=== PATIENT | female | born 1965 | race African-American/Black ===

== ENCOUNTER 2018-12-15 14:52 | Inpatient (IN) | payer OTHER ==
[2018-12-15 18:35] VITALS: BMI 27.9
--- NOTE | 2018-12-15 20:22 | HP ---
"CIWA Score Nausea/Vomitin-Mild Nausea/No Vomiting Muscle Tremors: 1-None Visible, but [place] Anxiety: 4-Mod. Anxious/Guarded Agitation: 1-Slight > Activity Paroxysmal Sweats: No Perspiration Orientation: 1-Uncertain about Date Tacttile Disturbances: 2-Mild Itch/Numbness/Burn Auditory Disturbances: 0-None Visual Disturbances: 2-Mild Sensitivity Headache: 2-Mild CIWA-Ar Total Score: 14 - Admission Criteria OASAS Guidelines: Admission for Medically Managed Detox: Requires at least one of the followin. CIWA greater than 12 2. Seizures within the past 24 hours 3. Delirium tremens within the past 24 hours 4. Hallucinations within the past 24 hours 5. Acute intervention needed for co occurring medical disorder 6. Acute intervention needed for co occurring psychiatric disorder 7. Severe withdrawal that cannot be handled at a lower level of care (continued vomiting, continued diarrhea, abnormal vital signs) requiring intravenous medication and/or fluids 8. Admitting History and Physical - Past Medical History ...LMP: 08/03/07 - Smoking History Smoking history: Current every day smoker Have you smoked in the past 12 months: Yes Aproximately how many cigarettes per day: 10 - Alcohol/Substance Use Hx Alcohol Use: Yes (reports drinking since 35 yo,I pint of vodka daily) Admission [facility] Allergies/Adverse Reactions: Allergies Allergy/AdvReac Type Severity Reaction Status Date / Time fish derived Allergy Severe Swelling Verified 12/15/18 18:35 Penicillins Allergy Severe Rash Verified 12/15/18 18:35 shellfish derived Allergy Severe Swelling Verified 12/15/18 18:35 sea food Allergy Severe Swelling Uncoded 12/15/18 18:35 History of Present Illness: pt here requesting detox from etoh use , reports 1 pint /day intermittently since age 29 , increased due to depression , latest use early this morning , current symptoms as above ,reports tremors if not drinking , denies blackouts or seizures , starts drinking alcohol in the mornings. Pt is poor historian, drowsy , intoxicated . cocaine : 400-500 $ /day nicotine 1/2 ppd PMHX : bipolar d/o , chronic back and Left knee pain, 3 adult children Search Terms: arelis polo, 1965 Search Date: 12/15/2018 08:32:53 PM This report was requested by: Neha Root | Reference #: [id number] There are no results for the search terms that you entered. Exam Limitations: Clinical Condition - Ebola screening Have you traveled outside of the country in the last 21 days: No Have you had contact with anyone from an Ebola affected area: No - Review of Systems Constitutional: Loss of Appetite, Changes in sleep EENT: reports: Other (glasses) Respiratory: reports: No Symptoms reported Cardiac: reports: No Symptoms Reported GI: reports: Nausea, Poor Appetite Musculoskeletal: reports: See HPI, Back Pain, Joint Pain Neuro: reports: See HPI, Headache Endocrine: reports: No Symptoms Reported Psychiatric: reports: Anxious, Disorientated Patient History - Patient Medical History Hx Anemia: Yes (NO TREATMENT) Hx Asthma: Yes (ON ALBUTEROL) Hx Chronic Obstructive Pulmonary Disease (COPD): No Hx Cancer: No Hx Cardiac Disorders: No Hx Congestive Heart Failure: No Hx Hypertension: No Hx Hypercholesterolemia: No Hx Pacemaker: No HX Cerebrovascular Accident: No Hx Seizures: No Hx Dementia: No Hx Diabetes: No Hx Gastrointestinal Disorders: No Hx Liver Disease: No Hx Genitourinary Disorders: No Hx Sexually Transmitted Disorders: No Hx Renal Disease (ESRD): No Hx Thyroid Disease: No Hx Human Immunodeficiency Virus (HIV): No (LAST 10/15) Hx Hepatitis C: No Hx Depression: Yes Hx Suicide Attempt: Yes (CUTTER) Hx Bipolar Disorder: Yes (ONMEDS) Hx Schizophrenia: No - Patient Surgical History Past Surgical History: No Hx Neurologic Surgery: No Hx Cataract Extraction: No Hx Cardiac Surgery: No Hx Lung Surgery: No Hx Breast Surgery: Yes (R BREAST CYST/ LUMPECTOMY BENIGN CYST) Hx Breast Biopsy: No Hx Abdominal Surgery: No Hx Appendectomy: No Hx Cholecystectomy: No Hx Genitourinary Surgery: No Hx Section: No Hx Orthopedic Surgery: No Hx Hysterectomy: No Anesthesia Reaction: No - PPD History Date: 12/27/16 Results: 0 mm - Reproductive History Last Menstrual Period: 08/03/07 - Smoking Cessation Smoking history: Current every day smoker Have you smoked in the past 12 months: Yes Aproximately how many cigarettes per day: 10 Cigars Per Day: 0 Hx Chewing Tobacco Use: No Initiated information on smoking cessation: Yes 'Breaking Loose' booklet given: 12/16/18 Admission Physical Exam BHS - Vital Signs Vital Signs: Vital Signs - 24 hr 12/15/18 18:26 Temperature 99.3 F Pulse Rate 86 Respiratory 18 Rate Blood Pressure 111/72 - Physical General Appearance: Yes: Mild Distress, Thin, Anxious HEENTM: Yes: EOMI, Hearing grossly Normal, Normocephalic, Normal Voice Respiratory: Yes: Chest Non-Tender, Lungs Clear, Normal Breath Sounds, No Respiratory Distress, No Accessory Muscle Use Neck: Yes: No masses,lesions,Nodules Cardiology: Yes: Regular Rhythm, Regular Rate, S1, S2 Abdominal: Yes: Normal Bowel Sounds, Non Tender, Soft Musculoskeletal: Yes: full range of Motion, Gait Steady Extremities: Yes: Normal Capillary Refill, Normal Inspection, Normal Range of Motion Neurological: Yes: Motor Strength 5/5, Disoriented, Depressed Affect - Diagnostic (1) Alcohol dependence with uncomplicated withdrawal Current Visit: Yes Status: Acute (2) Cocaine dependence Current Visit: Yes Status: Chronic Qualifiers: Substance use status: uncomplicated Qualified Code(s): F14.20 - Cocaine dependence, uncomplicated (3) Nicotine dependence Current Visit: Yes Status: Chronic Qualifiers: Nicotine product type: cigarettes Substance use status: uncomplicated Qualified Code(s): F17.210 - Nicotine dependence, cigarettes, uncomplicated Breathalyzer - Breathalyzer Breathalyzer: 0.006 Urine Drug Screen - Test Device Lot number: [id number] Expiration date: 07/29/20 - Control Is test valid?: Yes - Results Drug screen NEGATIVE: Yes Urine drug screen results: DANIS-Cocaine Inpatient Rehab Admission - Rehab Decision to Admit Inpatient rehab admission?: No"
[2018-12-15] MEDS ORDERED: MAG HYDROX/AL HYDROX/SIMETH 30 ML UNIT-DOSE CUP PO PRN (20:29)
[2018-12-15] MEDS ORDERED: BISMUTH SUBSALICYLATE 524 MG/30 ML UD PO PRN (20:29)
[2018-12-15] MEDS ORDERED: NICOTINE POLACRILEX 2 MG GUM BUC PRN (20:29)
[2018-12-15] MEDS ORDERED: hydrOXYzine PAMOATE 25 MG CAPSULE (FP) PO PRN (20:29)
[2018-12-15] MEDS ORDERED: MAGNESIUM CITRATE 300 ML BOTTLE PO PRN (20:29)
[2018-12-15] MEDS ORDERED: ACETAMINOPHEN 325 MG TABLET (FP) PO PRN ×2 (20:29)
[2018-12-15] MEDS ORDERED: MAGNESIUM HYDROX 2400MG/30ML ORAL SUSPENSION 30 ML CUP PO PRN (20:29)
[2018-12-15] MEDS ORDERED: MENTHOL/PHENOL 1 EACH UD MM PRN (20:29)
[2018-12-15] MEDS ORDERED: IBUPROFEN 400 MG TABLET (FP) PO PRN (20:29)
[2018-12-15] MEDS ORDERED: METHOCARBAMOL 500 MG TABLET PO PRN (20:29)
[2018-12-15] MEDS ORDERED: MELATONIN 5 MG TABLETS PO PRN (20:29)
[2018-12-15] MEDS ORDERED: chlordiazePOXIDE HCL 10 MG CAPSULE PO PRN (20:31)
[2018-12-15] MEDS ORDERED: THIAMINE HCL 100 MG TABLET (FP) PO SCH (22:00)
[2018-12-15] MEDS: chlordiazePOXIDE HCL 25 MG CAPSULE PO SCH (22:02)
[2018-12-16] MEDS: chlordiazePOXIDE HCL 25 MG CAPSULE PO SCH ×2 (05:52→13:10)
[2018-12-16 09:59] LABS: HEMATOCRIT 35.3 % (32.4-45.2); HEMOGLOBIN 11.7 GM/dL (10.7-15.3); MCH 27.7 pg (25.7-33.7); MCHC 33.1 g/dl (32.0-36.0); MEAN CELL VOLUME 83.6 fl (80-96); MEAN PLT VOLUME 8.7 fl (7.5-11.1); PLATELET COUNT 295 K/MM3 (134-434); RBC 4.22 M/mm3 (3.60-5.2); RDW 14.6 % (11.6-15.6); WHITE BLOOD COUNT 7.4 K/mm3 (4.0-10.0)
[2018-12-16] MEDS ORDERED: NICOTINE 7 MG/24 HOURS TOPICAL PATCH TD SCH (10:00)
[2018-12-16] MEDS ORDERED: PRENATAL VITAMINS W/ FOLIC ACID TABLET (FP) PO SCH (10:00)
[2018-12-16 10:12] LABS: ALBUMIN 3.5 g/dl (3.4-5.0); BILIRUBIN,TOTAL 0.5 mg/dL (0.2-1); CALCIUM 9.2 mg/dL (8.5-10.1); CREATININE 1.1 mg/dL (0.55-1.3); POTASSIUM 4.1 mmol/L (3.5-5.1); TOT PROT 6.5 g/dl (6.4-8.2)
--- NOTE | 2018-12-16 15:17 | CONSULT ---
[facility] Psychiatric Consult - Data Date of interview: 12/16/18 Admission source: [facility] Identifying data: Readmission to [facility] for this 53 y/o AA female self- referred for detoxification (MAGDALENA isues : cocaine, alcohol, nicotine). Interviewed at [address] [place] [address]. Patient is single, a mother of three, homeless, unemployed and supported on SSI benefits. Substance Abuse History: Patient admits to current use of alcohol and crack/ cocaine. See [facility] report for details : Smoking history: Current every day smoker. Have you smoked in the past 12 months: Yes. Aproximately how many cigarettes per day: 10. Cigars Per Day: 0. Hx Chewing Tobacco Use: No. Initiated information on smoking cessation: Yes. 'Breaking Loose' booklet given : 12/16/18 Medical History: Medical profile is remarkable for anemia, bronchial asthma and a history of right lumpectomy (cyst in right breast). Psychiatric History: History of 2-3 psychiatric hospitalizations ([facility], [facility]). Diagnosed with Bipolar Disorder. Ms Mckeon informs that she gets outpatient services at the [facility] outpatient program where he sees a psychiatrist for medication management (depakote 250 mg po tid + seroquel 50 mg po bid and 100 mg/hs). History of non-adherence to medications. Patient reports history of one suicide attempt via self-mutilation (wrist-cutting) 25 years ago after the of her brother. Physical/Sexual Abuse/Trauma History: Patient declines to discuss this domain. Additional Comment: Urine drug screen results: DANIS-Cocaine. Noted. Mental Status Exam - Mental Status Exam Alert and Oriented to: Time, Place, Person Cognitive Function: Good Patient Appearance: Well Groomed (loud make-up and exagerated hairdo style) Mood: Anxious, Irritable Affect: Mood Congruent Patient Behavior: Cooperative Speech Pattern: Clear Voice Loudness: Normal Thought Process: Goal Oriented Thought Disorder: Not Present Hallucinations: Denies Suicidal Ideation: Denies Homicidal Ideation: Denies Insight/Judgement: Poor Sleep: Poorly, Difficulty falling asleep Appetite: Good Gait/Station: Normal Psychiatric Findings - Problem List ([place] 1, 2,3) (1) Alcohol dependence with uncomplicated withdrawal Current Visit: Yes Status: Acute (2) Cocaine dependence Current Visit: Yes Status: Chronic Qualifiers: Substance use status: uncomplicated Qualified Code(s): F14.20 - Cocaine dependence, uncomplicated (3) Nicotine dependence Current Visit: Yes Status: Chronic Qualifiers: Nicotine product type: cigarettes Substance use status: uncomplicated Qualified Code(s): F17.210 - Nicotine dependence, cigarettes, uncomplicated (4) History of bipolar disorder Current Visit: Yes Status: Chronic (5) Insomnia Current Visit: Yes Status: Chronic (6) Non-compliance Current Visit: Yes Status: Chronic Comment: As per records. - Initial Treatment Plan Initial Treatment Plan: Psychoeducation. Sleep hygiene. Detoxification. Resumed (at patient's request) : depakote 250 mg po tid + seroquel 50 mg po daily + 100 mg po hs. Side effects/benefits of both drugs are discussed with the patient. Seroquel 50 mg po ONCE is ordered. Patient agrees with this plan of care. Gave verbal consent to MD. Fenton.
[2018-12-16] MEDS ORDERED: QUEtiapine FUMARATE 50 MG TABLET PO ONE (15:27)
--- NOTE | 2018-12-16 15:35 | PN ---
S CIWA - CIWA Score Nausea/Vomitin-Mild Nausea/No Vomiting Muscle Tremors: 1-None Visible, but [place] Anxiety: 3 Agitation: 1-Slight > Activity Paroxysmal Sweats: 2 Orientation: 0-Oriented Tacttile Disturbances: 2-Mild Itch/Numbness/Burn Auditory Disturbances: 0-None Visual Disturbances: 0-None Headache: 0-None Present CIWA-Ar Total Score: 10 BHS Progress Note (SOAP) Subjective: interrupted sleep, sweats, shakes , decreased appetite knee and leg aches Objective: 12/16/18 15:34 Vital Signs Temperature 99.3 F 12/16/18 13:42 Pulse Rate 82 12/16/18 13:42 Respiratory Rate 18 12/16/18 13:42 Blood Pressure 108/74 12/16/18 13:42 O2 Sat by Pulse Oximetry (%) Laboratory Tests 12/15/18 12/16/18 12/16/18 19:06 08:15 08:15 WBC 7.4 RBC 4.22 Hgb 11.7 Hct 35.3 MCV 83.6 MCH 27.7 MCHC 33.1 RDW 14.6 Plt Count 295 MPV 8.7 D Sodium 142 Potassium 4.1 Chloride 106 Carbon Dioxide 28 Anion Gap 8 BUN 14.0 Creatinine 1.1 Est GFR (CKD-EPI)AfAm 65.92 Est GFR (CKD-EPI)NonAf 56.87 Random Glucose 55 L Calcium 9.2 Total Bilirubin 0.5 AST 12 L ALT 14 Alkaline Phosphatase 76 Total Protein 6.5 Albumin 3.5 POC Urine HCG, Qual Negative RPR Titer 12/16/18 08:15 WBC RBC Hgb Hct MCV MCH MCHC RDW Plt Count MPV Sodium Potassium Chloride Carbon Dioxide Anion Gap BUN Creatinine Est GFR (CKD-EPI)AfAm Est GFR (CKD-EPI)NonAf Random Glucose Calcium Total Bilirubin AST ALT Alkaline Phosphatase Total Protein Albumin POC Urine HCG, Qual RPR Titer Nonreactive 12/16/18 15:40 f pt aox3 in nad lying in bed Assessment: 12/16/18 15:40 withdrawal sx;s body aches 12/16/18 15:40 Plan: cont. detox increase fluids motrin prn
--- NOTE | 2018-12-16 18:01 | DS ---
[facility] Detox Discharge Summary Admission Date: 12/15/18 Discharge Date: 12/16/18 - History Present History: Alcohol Dependence, Cocaine Dependence Additional Comments: PATIENT LEFT AMA. FOLLOW UP WITH OUT PATIENT PROGRAMS, IF WORSENING SYMPTOMS SEEK MEDICAL ATTENTION. FOLLOW UP WITH OUT PATIENT REFERRALS. Pertinent Past History: ANEMIA ASTHMA OA - Physical Exam Results Vital Signs: Vital Signs Temperature 99.3 F 12/16/18 13:42 Pulse Rate 82 12/16/18 13:42 Respiratory Rate 18 12/16/18 13:42 Blood Pressure 108/74 12/16/18 13:42 O2 Sat by Pulse Oximetry (%) Pertinent Admission Physical Exam Findings: Vital Signs Temperature 99.3 F 12/16/18 13:42 Pulse Rate 82 12/16/18 13:42 Respiratory Rate 18 12/16/18 13:42 Blood Pressure 108/74 12/16/18 13:42 O2 Sat by Pulse Oximetry (%) Laboratory Last Values WBC 7.4 K/mm3 (4.0-10.0) 12/16/18 08:15 RBC 4.22 M/mm3 (3.60-5.2) 12/16/18 08:15 Hgb 11.7 GM/dL (10.7-15.3) 12/16/18 08:15 Hct 35.3 % (32.4-45.2) 12/16/18 08:15 MCV 83.6 fl (80-96) 12/16/18 08:15 MCH 27.7 pg (25.7-33.7) 12/16/18 08:15 MCHC 33.1 g/dl (32.0-36.0) 12/16/18 08:15 RDW 14.6 % (11.6-15.6) 12/16/18 08:15 Plt Count 295 K/MM3 (134-434) 12/16/18 08:15 MPV 8.7 fl (7.5-11.1) D 12/16/18 08:15 Sodium 142 mmol/L (136-145) 12/16/18 08:15 Potassium 4.1 mmol/L (3.5-5.1) 12/16/18 08:15 Chloride 106 mmol/L (98-107) 12/16/18 08:15 Carbon Dioxide 28 mmol/L (21-32) 12/16/18 08:15 Anion Gap 8 MMOL/L (8-16) 12/16/18 08:15 BUN 14.0 mg/dL (7-18) 12/16/18 08:15 Creatinine 1.1 mg/dL (0.55-1.3) 12/16/18 08:15 Est GFR (CKD-EPI)AfAm 65.92 12/16/18 08:15 Est GFR (CKD-EPI)NonAf 56.87 12/16/18 08:15 Random Glucose 55 mg/dL (74-106) L 12/16/18 08:15 Calcium 9.2 mg/dL (8.5-10.1) 12/16/18 08:15 Total Bilirubin 0.5 mg/dL (0.2-1) 12/16/18 08:15 AST 12 U/L (15-37) L 12/16/18 08:15 ALT 14 U/L (13-61) 12/16/18 08:15 Alkaline Phosphatase 76 U/L (45-117) 12/16/18 08:15 Total Protein 6.5 g/dl (6.4-8.2) 12/16/18 08:15 Albumin 3.5 g/dl (3.4-5.0) 12/16/18 08:15 POC Urine HCG, Qual Negative 12/15/18 19:06 RPR Titer Nonreactive (NONREACTIVE) 12/16/18 08:15 - Treatment Hospital Course: Discharged Condition Good Patient has Accepted a Rehab Referral to: OUTPATIENT REFERRALS - Medication Discharge Medications: Ambulatory Orders Quetiapine Fumarate [Seroquel -] 50 mg PO BID 10/11/15 Albuterol Sulfate Inhaler - [Ventolin Hfa Inhaler -] 2 inh PO QID PRN 12/04/15 Divalproex Sodium [Depakote] 250 mg PO TID 02/14/16 Ferrous Sulfate [Feosol] 325 mg PO DAILY 02/14/16 Quetiapine Fumarate [Seroquel -] 100 mg PO HS 12/25/16 Amitriptyline HCl [Elavil -] 25 mg PO HS #30 tablet 01/04/17 Divalproex [Depakote -] 250 mg PO TID #90 cap 01/04/17 Gabapentin [Neurontin -] 100 mg PO TID #90 cap 01/04/17 Quetiapine Fumarate [Seroquel -] 150 mg PO HS #90 tablet 01/04/17 Quetiapine Fumarate [Seroquel -] 50 mg PO BID@1000,1400 12/15/18 - Diagnosis (1) Alcohol dependence with uncomplicated withdrawal Current Visit: Yes Status: Acute (2) Cocaine dependence Current Visit: Yes Status: Chronic Qualifiers: Substance use status: uncomplicated Qualified Code(s): F14.20 - Cocaine dependence, uncomplicated (3) History of bipolar disorder Current Visit: Yes Status: Chronic (4) Nicotine dependence Current Visit: Yes Status: Chronic Qualifiers: Nicotine product type: cigarettes Substance use status: uncomplicated Qualified Code(s): F17.210 - Nicotine dependence, cigarettes, uncomplicated (5) Non-compliance Current Visit: Yes Status: Chronic (6) Anemia Current Visit: No Status: Chronic (7) Arthritis Current Visit: Yes Status: Chronic (8) Asthma Current Visit: Yes Status: Chronic Qualifiers: Asthma severity: moderate persistent Asthma complication type: with status asthmaticus - AMA Did Patient Leave Against Medical Advice: Yes
--- NOTE | 2018-12-16 18:02 | PN ---
S Progress Note Note: PATIENT AMA DID NOT WAIT FOR PROVIDER
[2018-12-16 18:14] VITALS: BP 102/70; PULSE 77; TEMP 98.4
[2018-12-16] MEDS ORDERED: DIVALPROEX SODIUM 250 MG TABLET E.C. PO SCH (22:00)
[2018-12-16] MEDS ORDERED: QUEtiapine FUMARATE 100 MG TABLET (FP) PO SCH (22:00)
[2018-12-17] MEDS ORDERED: chlordiazePOXIDE 5 MG CAPSULE PO SCH (05:00)
[2018-12-17] MEDS ORDERED: QUEtiapine FUMARATE 50 MG TABLET PO SCH (10:00)
[2018-12-18] MEDS ORDERED: chlordiazePOXIDE HCL 10 MG CAPSULE PO PRN
[2018-12-18] MEDS ORDERED: chlordiazePOXIDE HCL 10 MG CAPSULE PO SCH (05:00)
[2018-12-19] MEDS ORDERED: chlordiazePOXIDE HCL 10 MG CAPSULE PO ONE (05:00)
== END 2018-12-16 18:30 | disposition left against medical advice (07) | DRG 770 ==
LOC: YASAS 14:52 → Y3N 21:09
PROVIDERS: ADMIT Allergy & Immunology; ATTEND Allergy & Immunology
PROC: HZ2ZZZZ Detoxification Services for Substance Abuse Treatment (ICD-10-PCS; principal; 2018-12-15)
DX: F10.230 Alcohol dependence with withdrawal, uncomplicated (principal); F14.20 Cocaine dependence, uncomplicated; F17.210 Nicotine dependence, cigarettes, uncomplicated; F31.9 Bipolar disorder, unspecified; G47.00 Insomnia, unspecified; D64.9 Anemia, unspecified; J45.22 Mild intermittent asthma with status asthmaticus; M19.90 Unspecified osteoarthritis, unspecified site; Z91.5 Personal history of self-harm; Z88.0 Allergy status to penicillin; Z91.013 Allergy to seafood; Z91.19 Patient's noncompliance with other medical treatment and regimen
CPT/HCPCS: 36415; 80053; 81025; 85027; 86593

== ENCOUNTER 2019-01-09 09:58 | Inpatient (IN) | payer OTHER ==
[2019-01-09 10:57] VITALS: BMI 26.7
--- NOTE | 2019-01-09 11:34 | HP ---
CIWA Score Nausea/Vomitin Muscle Tremors: 4-Moderate,w/Arms Extend Anxiety: 3 Agitation: 3 Paroxysmal Sweats: 3 Orientation: 2-Disoriented Date<2 days Tacttile Disturbances: 1-Very Mild Itch/Numbness Auditory Disturbances: 0-None Visual Disturbances: 0-None Headache: 1-Very Mild CIWA-Ar Total Score: 20 - Admission Criteria OASAS Guidelines: Admission for Medically Managed Detox: Requires at least one of the followin. CIWA greater than 12 2. Seizures within the past 24 hours 3. Delirium tremens within the past 24 hours 4. Hallucinations within the past 24 hours 5. Acute intervention needed for co occurring medical disorder 6. Acute intervention needed for co occurring psychiatric disorder 7. Severe withdrawal that cannot be handled at a lower level of care (continued vomiting, continued diarrhea, abnormal vital signs) requiring intravenous medication and/or fluids 8. Admitting History and Physical - Admission Chief Complaint: " I want to clean myself out again. Last time I left, I started drinking right away." History of Present Illness: 53 year old black female with alcohol dependence with withdrawals. She was last in detox 12/15/18 but as soon as she finished detoxed, she immediately relapsed. This time she wishes to continue to rehab and then go to an outpatient treatment center. She is drinking 1-2 pints of vodka daily and last drank this morning. Her breathalyzer was positive at 0.0095. She hasn't slept well and is very tired. PMH: Anemia and Asthma Psurg: None All: Shellfish. Psych: Bipolar Disorder, Depression, Schizophrenia ( former cutter) She is homeless and in [facility]. She has poor coping skills and support systems. History Source: Patient Limitations to Obtaining History: Intoxication, Physical Impairment - Past Medical History ...LMP: 08/03/07 Heme/Onc: Yes: Anemia - Advance Directives Advance Directives: No: Living Will, Health Care Proxy, DNR - Smoking History Smoking history: Current every day smoker Have you smoked in the past 12 months: Yes Aproximately how many cigarettes per day: 10 - Alcohol/Substance Use Hx Alcohol Use: Yes (reports drinking since 35 yo,I pint of vodka daily) History of Substance Use: reports: Cocaine - Social History Usual Living Arrangement: Yes: Alone Do you think of yourself as: Straight/Heterosexual ADL: Independent Occupation: unemployed History of Recent Travel: No Admission ROS S - HPI Allergies/Adverse Reactions: Allergies Allergy/AdvReac Type Severity Reaction Status Date / Time fish derived Allergy Severe Swelling Verified 01/09/19 10:49 Penicillins Allergy Severe Rash Verified 01/09/19 10:49 shellfish derived Allergy Severe Swelling Verified 01/09/19 10:49 sea food Allergy Severe Swelling Uncoded 01/09/19 10:49 - Ebola screening Have you traveled outside of the country in the last 21 days: No ([place]) Have you had contact with anyone from an Ebola affected area: No Have you been sick,other than usual withdrawal symptoms: No Do you have a fever: No - Review of Systems Constitutional: Chills, Unintentional Wgt. Loss EENT: reports: No Symptoms Reported Respiratory: reports: No Symptoms reported Cardiac: reports: No Symptoms Reported GI: reports: Nausea, Vomiting, Abdominal cramping : reports: No Symptoms Reported Musculoskeletal: reports: No Symptoms Reported Integumentary: reports: No Symptoms Reported Neuro: reports: No Symptoms reported Endocrine: reports: No Symptoms Reported Hematology: reports: No Symptoms Reported Psychiatric: reports: Judgement Intact, Mood/Affect Appropiate, Orientated x3 Other Systems: Reviewed and Negative Patient History - Patient Medical History Hx Anemia: Yes (NO TREATMENT) Hx Asthma: Yes (ON ALBUTEROL) Hx Chronic Obstructive Pulmonary Disease (COPD): No Hx Cancer: No Hx Cardiac Disorders: No Hx Congestive Heart Failure: No Hx Hypertension: No Hx Hypercholesterolemia: No Hx Pacemaker: No HX Cerebrovascular Accident: No Hx Seizures: No Hx Dementia: No Hx Diabetes: No Hx Gastrointestinal Disorders: No Hx Liver Disease: No Hx Genitourinary Disorders: No Hx Sexually Transmitted Disorders: No Hx Renal Disease (ESRD): No Hx Thyroid Disease: No Hx Human Immunodeficiency Virus (HIV): No (LAST 10/15) Hx Hepatitis C: No Hx Depression: Yes Hx Suicide Attempt: Yes (CUTTER) Hx Bipolar Disorder: Yes (ONMEDS) Hx Schizophrenia: No - Patient Surgical History Past Surgical History: No Hx Neurologic Surgery: No Hx Cataract Extraction: No Hx Cardiac Surgery: No Hx Lung Surgery: No Hx Breast Surgery: Yes (R BREAST CYST/ LUMPECTOMY BENIGN CYST) Hx Breast Biopsy: No Hx Abdominal Surgery: No Hx Appendectomy: No Hx Cholecystectomy: No Hx Genitourinary Surgery: No Hx Section: No Hx Orthopedic Surgery: No Hx Hysterectomy: No Anesthesia Reaction: No - PPD History Previous Implant?: Yes Documented Results: Negative w/proof Implanted On Prior [facility] Admission?: Yes Date: 12/27/16 Results: 0 mm PPD to be Administered?: No - Reproductive History Patient is a Female of Child Bearing Age (11 -55 yrs old): Yes Last Menstrual Period: 08/03/07 - Smoking Cessation Smoking history: Current every day smoker Have you smoked in the past 12 months: Yes Aproximately how many cigarettes per day: 10 Cigars Per Day: 0 Hx Chewing Tobacco Use: No Initiated information on smoking cessation: Yes 'Breaking Loose' booklet given: 01/09/19 - Substances abused Alcohol Substance route: Oral Frequency: Daily Amount used: 1 pint of vodka Age of first use: 14 Date of last use: 01/09/19 Crack Substance route: Smoking Frequency: Daily Amount used: 10-20 bags Age of first use: 30 Date of last use: 01/07/19 Admission Physical Exam S - Vital Signs Vital Signs: Vital Signs - 24 hr 01/09/19 10:49 Temperature 96.4 F L Pulse Rate 87 Respiratory 18 Rate Blood Pressure 123/69 - Physical General Appearance: Yes: Disheveled, Mild Distress, Alcohol on Breath, Intoxicated HEENTM: Yes: EOMI, Hearing grossly Normal, Normal ENT Inspection, Normocephalic , Normal Voice, RENATO, Pharynx Normal, Tm's normal Respiratory: Yes: Chest Non-Tender, Lungs Clear, Normal Breath Sounds, No Respiratory Distress, No Accessory Muscle Use Neck: Yes: No masses,lesions,Nodules, Supple, Trachea in good position Breast: Yes: Breast Exam Deferred Cardiology: Yes: Regular Rhythm, Regular Rate, S1, S2 Abdominal: Yes: Non Tender, Soft, Increased Bowel Sounds Genitourinary: Yes: Within Normal Limits Back: Yes: Within Normal Limits Musculoskeletal: Yes: full range of Motion, Gait Steady Extremities: Yes: Normal Capillary Refill, Normal Inspection, Normal Range of Motion, Non-Tender Neurological: Yes: esthetician facialist II-XII NML intact, Fully Oriented, Alert, Motor Strength 5/5, Normal Mood/Affect Integumentary: Yes: Normal Color, Warm Lymphatic: Yes: Within Normal Limits - Diagnostic (1) Alcohol dependence with uncomplicated withdrawal Current Visit: Yes Status: Acute (2) Bipolar disorder (manic depression) Current Visit: Yes Status: Acute (3) Weight loss Current Visit: Yes Status: Acute (4) Alcohol dependence Current Visit: Yes Status: Chronic (5) Anemia Current Visit: Yes Status: Chronic (6) Arthritis Current Visit: Yes Status: Chronic (7) Asthma Current Visit: Yes Status: Chronic Qualifiers: Asthma severity: moderate persistent Asthma complication type: with status asthmaticus (8) Bipolar 1 disorder Current Visit: Yes Status: Chronic Comment: By history. (9) Cocaine dependence Current Visit: Yes Status: Chronic Qualifiers: Substance use status: uncomplicated Qualified Code(s): F14.20 - Cocaine dependence, uncomplicated (10) Insomnia Current Visit: Yes Status: Chronic (11) Nicotine dependence Current Visit: Yes Status: Chronic Qualifiers: Nicotine product type: cigarettes Substance use status: uncomplicated Qualified Code(s): F17.210 - Nicotine dependence, cigarettes, uncomplicated Screened but not Admitted - Documentation of Visit Screened but not Admitted: No Breathalyzer - Breathalyzer Breathalyzer: 0.006 Urine Drug Screen - Test Device Lot number: [id number] Expiration date: 07/29/20 - Control Is test valid?: Yes - Results Drug screen NEGATIVE: Yes Urine drug screen results: DANIS-Cocaine Inpatient Rehab Admission - Rehab Decision to Admit Inpatient rehab admission?: No
[2019-01-09] MEDS ORDERED: MAGNESIUM HYDROX 2400MG/30ML ORAL SUSPENSION 30 ML CUP PO PRN (11:40)
[2019-01-09] MEDS ORDERED: hydrOXYzine PAMOATE 25 MG CAPSULE (FP) PO PRN (11:40)
[2019-01-09] MEDS ORDERED: IBUPROFEN 400 MG TABLET (FP) PO PRN (11:40)
[2019-01-09] MEDS ORDERED: BISMUTH SUBSALICYLATE 262 MG/15 ML BTL PO PRN (11:40)
[2019-01-09] MEDS ORDERED: chlordiazePOXIDE HCL 25 MG CAPSULE PO PRN (11:40)
[2019-01-09] MEDS ORDERED: MAG HYDROX/AL HYDROX/SIMETH 30 ML UNIT-DOSE CUP PO PRN (11:40)
[2019-01-09] MEDS ORDERED: METHOCARBAMOL 500 MG TABLET PO PRN (11:40)
[2019-01-09] MEDS ORDERED: ACETAMINOPHEN 325 MG TABLET (FP) PO PRN ×2 (11:40)
[2019-01-09] MEDS ORDERED: MELATONIN 5 MG TABLETS PO PRN (11:40)
[2019-01-09] MEDS ORDERED: MENTHOL/PHENOL 1 EACH UD MM PRN (11:40)
[2019-01-09] MEDS ORDERED: MAGNESIUM CITRATE 300 ML BOTTLE PO PRN (11:40)
[2019-01-09] MEDS ORDERED: ALBUTEROL SO4 8 GM HFA INHALER IH PRN (11:42)
[2019-01-09 14:17] LABS: HEMATOCRIT 36.1 % (32.4-45.2); HEMOGLOBIN 11.8 GM/dL (10.7-15.3); MCH 27.6 pg (25.7-33.7); MCHC 32.6 g/dl (32.0-36.0); MEAN CELL VOLUME 84.7 fl (80-96); MEAN PLT VOLUME 8.6 fl (7.5-11.1); PLATELET COUNT 370 K/MM3 (134-434); RBC 4.26 M/mm3 (3.60-5.2); RDW 14.9 % (11.6-15.6)
[2019-01-09] MEDS: DIVALPROEX SODIUM 250 MG TABLET E.C. PO SCH ×2 (14:19→21:50)
[2019-01-09 14:38] LABS: ALBUMIN 3.6 g/dl (3.4-5.0); BILIRUBIN,TOTAL 0.2 mg/dL (0.2-1); BLOOD UREA NITROGEN 5.6 mg/dL (7-18); CALCIUM 9.2 mg/dL (8.5-10.1); CREATININE 0.9 mg/dL (0.55-1.3)
[2019-01-09] MEDS: chlordiazePOXIDE HCL 25 MG CAPSULE PO SCH ×2 (17:28→22:47)
[2019-01-09] MEDS ORDERED: QUEtiapine FUMARATE 50 MG TABLET PO ONE (20:05)
[2019-01-09] MEDS: THIAMINE HCL 100 MG TABLET (FP) PO SCH (21:51)
[2019-01-09] MEDS: guaiFENesin 200 MG/10 ML 10 ML UNIT-DOSE CUPS PO PRN (21:51)
[2019-01-10] MEDS: chlordiazePOXIDE HCL 25 MG CAPSULE PO SCH ×4 (06:24→22:41)
[2019-01-10] MEDS: DIVALPROEX SODIUM 250 MG TABLET E.C. PO SCH ×3 (06:24→22:41)
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
[2019-01-10] MEDS: PRENATAL VITAMINS W/ FOLIC ACID TABLET (FP) PO SCH (10:43)
[2019-01-10] MEDS: NICOTINE 14 MG/24 HOURS TOPICAL PATCH TD SCH (10:43)
[2019-01-10] MEDS: QUEtiapine FUMARATE 50 MG TABLET PO SCH ×2 (10:44→17:57)
[2019-01-10] MEDS: guaiFENesin 200 MG/10 ML 10 ML UNIT-DOSE CUPS PO PRN ×2 (10:47→22:42)
--- NOTE | 2019-01-10 14:34 | PN ---
[facility] CIWA - CIWA Score Nausea/Vomitin-No Nausea/No Vomiting Muscle Tremors: 3 Anxiety: 2 Agitation: 3 Paroxysmal Sweats: 3 Orientation: 0-Oriented Tacttile Disturbances: 0-None Auditory Disturbances: 0-None Visual Disturbances: 0-None Headache: 0-None Present CIWA-Ar Total Score: 11 BHS Progress Note (SOAP) Subjective: agitation sweats shakes interrupted sleep body aches Objective: 01/10/19 14:33 Vital Signs Temperature 97.8 F 01/10/19 13:21 Pulse Rate 71 01/10/19 13:21 Respiratory Rate 18 01/10/19 13:21 Blood Pressure 119/71 01/10/19 13:21 O2 Sat by Pulse Oximetry (%) Laboratory Tests 01/09/19 01/09/19 01/09/19 11:45 11:45 11:45 WBC 7.0 RBC 4.26 Hgb 11.8 Hct 36.1 MCV 84.7 MCH 27.6 MCHC 32.6 RDW 14.9 Plt Count 370 D MPV 8.6 Sodium 139 Potassium 4.0 Chloride 106 Carbon Dioxide 28 Anion Gap 6 L BUN 5.6 L Creatinine 0.9 Est GFR (CKD-EPI)AfAm 84.01 Est GFR (CKD-EPI)NonAf 72.49 Random Glucose 82 Calcium 9.2 Total Bilirubin 0.2 AST 23 ALT 18 Alkaline Phosphatase 77 Total Protein 7.0 Albumin 3.6 Valproic Acid RPR Titer Nonreactive 01/10/19 05:40 WBC RBC Hgb Hct MCV MCH MCHC RDW Plt Count MPV Sodium Potassium Chloride Carbon Dioxide Anion Gap BUN Creatinine Est GFR (CKD-EPI)AfAm Est GFR (CKD-EPI)NonAf Random Glucose Calcium Total Bilirubin AST ALT Alkaline Phosphatase Total Protein Albumin Valproic Acid 4.2 L RPR Titer labs noted aaox3 ambulating no acute distress Assessment: 01/10/19 14:34 withdrawal sx Plan: continue detox increase fluids ensure bid
[2019-01-10] MEDS: QUEtiapine FUMARATE 100 MG TABLET (FP) PO SCH (22:41)
[2019-01-10] MEDS: THIAMINE HCL 100 MG TABLET (FP) PO SCH (22:41)
[2019-01-11] MEDS: DIVALPROEX SODIUM 250 MG TABLET E.C. PO SCH ×3 (06:28→22:38)
[2019-01-11] MEDS: chlordiazePOXIDE HCL 25 MG CAPSULE PO SCH ×4 (06:28→22:38)
[2019-01-11] MEDS ORDERED: QUEtiapine FUMARATE 25 MG TABLET (FP) ONE (09:33)
[2019-01-11] MEDS: QUEtiapine FUMARATE 50 MG TABLET PO SCH ×2 (10:56→18:30)
[2019-01-11] MEDS: NICOTINE 14 MG/24 HOURS TOPICAL PATCH TD SCH (10:57)
[2019-01-11] MEDS: PRENATAL VITAMINS W/ FOLIC ACID TABLET (FP) PO SCH (10:57)
--- NOTE | 2019-01-11 12:47 | PN ---
S CIWA - CIWA Score Nausea/Vomitin-No Nausea/No Vomiting Muscle Tremors: 3 Anxiety: 2 Agitation: 2 Paroxysmal Sweats: 2 Orientation: 0-Oriented Tacttile Disturbances: 0-None Auditory Disturbances: 0-None Visual Disturbances: 0-None Headache: 0-None Present CIWA-Ar Total Score: 9 S Progress Note (SOAP) Subjective: tired sweats chills irritable Objective: 01/11/19 12:46 Vital Signs Temperature 96.4 F L 01/11/19 09:23 Pulse Rate 78 01/11/19 09:23 Respiratory Rate 18 01/11/19 09:23 Blood Pressure 150/89 01/11/19 09:23 O2 Sat by Pulse Oximetry (%) Laboratory Tests 01/09/19 01/09/19 01/09/19 11:45 11:45 11:45 WBC 7.0 RBC 4.26 Hgb 11.8 Hct 36.1 MCV 84.7 MCH 27.6 MCHC 32.6 RDW 14.9 Plt Count 370 D MPV 8.6 Sodium 139 Potassium 4.0 Chloride 106 Carbon Dioxide 28 Anion Gap 6 L BUN 5.6 L Creatinine 0.9 Est GFR (CKD-EPI)AfAm 84.01 Est GFR (CKD-EPI)NonAf 72.49 Random Glucose 82 Calcium 9.2 Total Bilirubin 0.2 AST 23 ALT 18 Alkaline Phosphatase 77 Total Protein 7.0 Albumin 3.6 Valproic Acid RPR Titer Nonreactive 01/10/19 05:40 WBC RBC Hgb Hct MCV MCH MCHC RDW Plt Count MPV Sodium Potassium Chloride Carbon Dioxide Anion Gap BUN Creatinine Est GFR (CKD-EPI)AfAm Est GFR (CKD-EPI)NonAf Random Glucose Calcium Total Bilirubin AST ALT Alkaline Phosphatase Total Protein Albumin Valproic Acid 4.2 L RPR Titer labs noted aaox3 ambulating no acute distress Assessment: 01/11/19 12:47 withdrawals Plan: continue detox increase fluids
[2019-01-11] MEDS: THIAMINE HCL 100 MG TABLET (FP) PO SCH (22:38)
[2019-01-11] MEDS: QUEtiapine FUMARATE 100 MG TABLET (FP) PO SCH (22:38)
[2019-01-12] MEDS ORDERED: chlordiazePOXIDE HCL 10 MG CAPSULE PO PRN
[2019-01-12] MEDS: DIVALPROEX SODIUM 250 MG TABLET E.C. PO SCH ×3 (05:33→23:07)
[2019-01-12] MEDS: chlordiazePOXIDE HCL 10 MG CAPSULE PO SCH ×4 (05:33→23:08)
[2019-01-12] MEDS: PRENATAL VITAMINS W/ FOLIC ACID TABLET (FP) PO SCH (10:23)
[2019-01-12] MEDS: NICOTINE 14 MG/24 HOURS TOPICAL PATCH TD SCH (10:23)
[2019-01-12] MEDS: QUEtiapine FUMARATE 50 MG TABLET PO SCH ×2 (10:24→18:16)
--- NOTE | 2019-01-12 12:32 | PN ---
S CIWA - CIWA Score Nausea/Vomitin-No Nausea/No Vomiting Muscle Tremors: 2 Anxiety: 1-Mildly Anxious Agitation: 1-Slight > Activity Paroxysmal Sweats: 1-Minimal Palms Moist Orientation: 0-Oriented Tacttile Disturbances: 0-None Auditory Disturbances: 0-None Visual Disturbances: 0-None Headache: 0-None Present CIWA-Ar Total Score: 5 BHS Progress Note (SOAP) Subjective: sleepy shakes interrupted sleep Objective: 01/12/19 12:31 Vital Signs Temperature 97.7 F 01/12/19 09:57 Pulse Rate 76 01/12/19 09:57 Respiratory Rate 01/12/19 09:57 Blood Pressure 101/56 L 01/12/19 09:57 O2 Sat by Pulse Oximetry (%) Laboratory Tests 01/09/19 01/09/19 01/09/19 11:45 11:45 11:45 WBC 7.0 RBC 4.26 Hgb 11.8 Hct 36.1 MCV 84.7 MCH 27.6 MCHC 32.6 RDW 14.9 Plt Count 370 D MPV 8.6 Sodium 139 Potassium 4.0 Chloride 106 Carbon Dioxide 28 Anion Gap 6 L BUN 5.6 L Creatinine 0.9 Est GFR (CKD-EPI)AfAm 84.01 Est GFR (CKD-EPI)NonAf 72.49 Random Glucose 82 Calcium 9.2 Total Bilirubin 0.2 AST 23 ALT 18 Alkaline Phosphatase 77 Total Protein 7.0 Albumin 3.6 Valproic Acid RPR Titer Nonreactive 01/10/19 05:40 WBC RBC Hgb Hct MCV MCH MCHC RDW Plt Count MPV Sodium Potassium Chloride Carbon Dioxide Anion Gap BUN Creatinine Est GFR (CKD-EPI)AfAm Est GFR (CKD-EPI)NonAf Random Glucose Calcium Total Bilirubin AST ALT Alkaline Phosphatase Total Protein Albumin Valproic Acid 4.2 L RPR Titer labs noted aaox3 ambulating no acute distress Assessment: 01/12/19 12:31 withdrawals Plan: continue detox increase fluids
[2019-01-12] MEDS: THIAMINE HCL 100 MG TABLET (FP) PO SCH (23:08)
[2019-01-12] MEDS: QUEtiapine FUMARATE 100 MG TABLET (FP) PO SCH (23:08)
[2019-01-13] MEDS: DIVALPROEX SODIUM 250 MG TABLET E.C. PO SCH ×3 (06:58→22:30)
[2019-01-13] MEDS: chlordiazePOXIDE HCL 10 MG CAPSULE PO SCH ×2 (06:59→17:28)
[2019-01-13] MEDS: NICOTINE 14 MG/24 HOURS TOPICAL PATCH TD SCH (10:33)
[2019-01-13] MEDS: PRENATAL VITAMINS W/ FOLIC ACID TABLET (FP) PO SCH (10:34)
[2019-01-13] MEDS: QUEtiapine FUMARATE 50 MG TABLET PO SCH ×2 (10:34→17:30)
--- NOTE | 2019-01-13 13:27 | PN ---
[facility] CIWA - CIWA Score Nausea/Vomitin-No Nausea/No Vomiting Muscle Tremors: None Anxiety: 1-Mildly Anxious Agitation: 0-Normal Activity Paroxysmal Sweats: No Perspiration Orientation: 0-Oriented Tacttile Disturbances: 0-None Auditory Disturbances: 0-None Visual Disturbances: 0-None Headache: 0-None Present CIWA-Ar Total Score: 1 BHS Progress Note (SOAP) Subjective: dry skin Objective: 01/13/19 13:26 Vital Signs Temperature 98.2 F 01/13/19 10:12 Pulse Rate 67 01/13/19 10:12 Respiratory Rate 18 01/13/19 10:12 Blood Pressure 100/64 01/13/19 10:12 O2 Sat by Pulse Oximetry (%) aaox3 ambulating no acute distress Assessment: 01/13/19 13:26 mild withdrawals Plan: continue detox lac hydrin prn d/c in am
[2019-01-13] MEDS: AMMONIUM LACTATE 12% LOTION 225 GM BOTTLE TP SCH ×2 (14:21→22:31)
[2019-01-13] MEDS: QUEtiapine FUMARATE 100 MG TABLET (FP) PO SCH (22:30)
[2019-01-13] MEDS: THIAMINE HCL 100 MG TABLET (FP) PO SCH (22:30)
[2019-01-14] MEDS ORDERED: chlordiazePOXIDE HCL 10 MG CAPSULE PO ONE (05:00)
[2019-01-14] MEDS: DIVALPROEX SODIUM 250 MG TABLET E.C. PO SCH ×2 (06:19→13:33)
[2019-01-14] MEDS: NICOTINE 14 MG/24 HOURS TOPICAL PATCH TD SCH (10:39)
[2019-01-14] MEDS: PRENATAL VITAMINS W/ FOLIC ACID TABLET (FP) PO SCH (10:39)
[2019-01-14] MEDS: AMMONIUM LACTATE 12% LOTION 225 GM BOTTLE TP SCH (10:39)
[2019-01-14] MEDS: QUEtiapine FUMARATE 50 MG TABLET PO SCH (10:46)
[2019-01-14 10:56] VITALS: BP 117/77; PULSE 84; TEMP 98.6
--- NOTE | 2019-01-14 15:08 | DS ---
[facility] Detox Discharge Summary Admission Date: 01/09/19 Discharge Date: 01/14/19 - History Present History: Alcohol Dependence, Cocaine Dependence Additional Comments: PATIENT GOING ON TO [facility] ([place], [place]) FOR AFTERCARE. PATIENT WAS DISCHARGED FROM DETOX UNIT TO BE TAKEN OVER TO REHAB UNIT IN STABLE MEDICAL CONDITION. Pertinent Past History: Anemia, Asthma, Bipolar Disorder, Depression, Schizophrenia, Weight Loss, Arthritis, Nicotine Dependence, Insomnia. - Physical Exam Results Vital Signs: Vital Signs Temperature 98.6 F 01/14/19 10:54 Pulse Rate 84 01/14/19 10:54 Respiratory Rate 18 01/14/19 10:54 Blood Pressure 117/77 01/14/19 10:54 O2 Sat by Pulse Oximetry (%) Pertinent Admission Physical Exam Findings: WITHDRAWAL SYMPTOMS. Laboratory Tests 01/09/19 01/09/19 01/09/19 11:45 11:45 11:45 WBC 7.0 RBC 4.26 Hgb 11.8 Hct 36.1 MCV 84.7 MCH 27.6 MCHC 32.6 RDW 14.9 Plt Count 370 D MPV 8.6 Sodium 139 Potassium 4.0 Chloride 106 Carbon Dioxide 28 Anion Gap 6 L BUN 5.6 L Creatinine 0.9 Est GFR (CKD-EPI)AfAm 84.01 Est GFR (CKD-EPI)NonAf 72.49 Random Glucose 82 Calcium 9.2 Total Bilirubin 0.2 AST 23 ALT 18 Alkaline Phosphatase 77 Total Protein 7.0 Albumin 3.6 Valproic Acid RPR Titer Nonreactive 01/10/19 05:40 WBC RBC Hgb Hct MCV MCH MCHC RDW Plt Count MPV Sodium Potassium Chloride Carbon Dioxide Anion Gap BUN Creatinine Est GFR (CKD-EPI)AfAm Est GFR (CKD-EPI)NonAf Random Glucose Calcium Total Bilirubin AST ALT Alkaline Phosphatase Total Protein Albumin Valproic Acid 4.2 L RPR Titer LABS NOTED. - Treatment Hospital Course: Detox Protocol Followed, Detoxed Safely, Responded well, Discharged Condition Good, Rehab Referral Accepted Patient has Accepted a Rehab Referral to: [facility] ([place], [place]). - Medication Discharge Medications: Ambulatory Orders Albuterol Sulfate Inhaler - [Ventolin Hfa Inhaler -] 2 inh PO QID PRN 12/04/15 Ferrous Sulfate [Feosol] 325 mg PO DAILY 02/14/16 Quetiapine Fumarate [Seroquel -] 100 mg PO HS 12/25/16 Amitriptyline HCl [Elavil -] 25 mg PO HS #30 tablet 01/04/17 Divalproex [Depakote -] 250 mg PO TID #90 cap 01/04/17 Quetiapine Fumarate [Seroquel -] 50 mg PO BID@1000,1400 12/15/18 - Diagnosis (1) Alcohol dependence with uncomplicated withdrawal Status: Acute (2) Bipolar disorder (manic depression) Status: Acute Qualifiers: Active/Remission status: remission status unspecified Qualified Code(s): F31.9 - Bipolar disorder, unspecified (3) Weight loss Status: Acute (4) Anemia Status: Chronic Qualifiers: Anemia type: unspecified type Qualified Code(s): D64.9 - Anemia, unspecified (5) Arthritis Status: Chronic (6) Asthma Status: Chronic Qualifiers: Asthma severity: unspecified severity Asthma persistence: unspecified Asthma complication type: uncomplicated Qualified Code(s): J45.909 - Unspecified asthma, uncomplicated (7) Cocaine dependence Status: Chronic Qualifiers: Substance use status: uncomplicated Qualified Code(s): F14.20 - Cocaine dependence, uncomplicated (8) Insomnia Status: Chronic Qualifiers: Insomnia type: unspecified Qualified Code(s): G47.00 - Insomnia, unspecified (9) Nicotine dependence Status: Chronic Qualifiers: Nicotine product type: cigarettes Substance use status: uncomplicated Qualified Code(s): F17.210 - Nicotine dependence, cigarettes, uncomplicated - AMA Did Patient Leave Against Medical Advice: No
== END 2019-01-14 14:03 | disposition other institution (70) | DRG 774 ==
LOC: YASAS 09:58 → Y6N 11:59
PROVIDERS: ADMIT Allergy & Immunology; ATTEND Allergy & Immunology
PROC: HZ2ZZZZ Detoxification Services for Substance Abuse Treatment (ICD-10-PCS; principal; 2019-01-09)
DX: F10.230 Alcohol dependence with withdrawal, uncomplicated (principal); F10.220 Alcohol dependence with intoxication, uncomplicated; F14.20 Cocaine dependence, uncomplicated; F17.210 Nicotine dependence, cigarettes, uncomplicated; F31.9 Bipolar disorder, unspecified; R63.4 Abnormal weight loss; M19.90 Unspecified osteoarthritis, unspecified site; J45.909 Unspecified asthma, uncomplicated; G47.00 Insomnia, unspecified; Z88.0 Allergy status to penicillin; Z91.013 Allergy to seafood; Z62.810 Personal history of physical and sexual abuse in childhood; Z91.5 Personal history of self-harm; Z59.0 Homelessness
CPT/HCPCS: 36415; 80053; 80164; 85027; 86593

== ENCOUNTER 2019-01-14 11:31 | Inpatient (IN) | payer OTHER ==
[2019-01-14] MEDS ORDERED: MAGNESIUM HYDROX 2400MG/30ML ORAL SUSPENSION 30 ML CUP PO PRN (15:14)
[2019-01-14] MEDS ORDERED: guaiFENesin 200 MG/10 ML 10 ML UNIT-DOSE CUPS PO PRN (15:14)
[2019-01-14] MEDS ORDERED: ACETAMINOPHEN 325 MG TABLET (FP) PO PRN (15:14)
[2019-01-14] MEDS ORDERED: IBUPROFEN 400 MG TABLET (FP) PO PRN (15:14)
[2019-01-14] MEDS ORDERED: LOPERAMIDE HCL 2 MG CAPSULE PO PRN (15:14)
[2019-01-14] MEDS ORDERED: P-EPHED 60MG/TRIPROLIDI 2.5MG TABLET PO PRN (15:14)
[2019-01-14] MEDS ORDERED: MENTHOL/PHENOL 1 EACH UD MM PRN (15:14)
[2019-01-14] MEDS ORDERED: ALBUTEROL SO4 8 GM HFA INHALER IH PRN (15:14)
[2019-01-14] MEDS ORDERED: MAGNESIUM CITRATE 300 ML BOTTLE PO PRN (15:14)
[2019-01-14] MEDS ORDERED: MAG HYDROX/AL HYDROX/SIMETH 30 ML UNIT-DOSE CUP PO PRN (15:14)
--- NOTE | 2019-01-14 15:16 | HP ---
[facility] Re[facility] Assess/Revision - Admission History Admitted to Rehab from: [facility] Date of Admission to Rehab: 01/14/2019 - Vital signs Vital Signs: NOTED; STABLE. - Findings Detox History & Physical reviewed: Yes Concur with findings: Yes Comments/Additional Findings: PATIENT'S MEDICAL / MEDICATION HISTORY REVIEWED PRIOR TO DISCHARGE FROM DETOX UNIT. PATIENT WAS DISCHARGED FROM DETOX UNIT TO BE TAKEN OVER TO REHAB UNIT IN STABLE MEDICAL CONDITION. Inpatient Rehab Admission - Rehab Decision to Admit Inpatient rehab admission?: Yes - Initial Determination Are CD services needed?: Yes Free of communicable disease: Yes Not in need of hospitalization: Yes - Rehab Admission Criteria Previous failed treatment: Yes Poor recovery environment: Yes Comorbidities: Yes Lacks judgement: No Patient is meeting Inpatient Rehab admission criteria:: Yes
[2019-01-14] MEDS ORDERED: MELATONIN 5 MG TABLETS PO PRN (22:00)
[2019-01-14] MEDS ORDERED: THIAMINE HCL 100 MG TABLET (FP) PO SCH (22:00)
[2019-01-15] MEDS ORDERED: NICOTINE 14 MG/24 HOURS TOPICAL PATCH TD SCH (10:00)
[2019-01-15] MEDS ORDERED: PRENATAL VITAMINS W/ FOLIC ACID TABLET (FP) PO SCH (10:00)
== END 2019-01-14 16:50 | disposition left against medical advice (07) | DRG 770 ==
LOC: YASAS 11:31 → Y3E 11:32
PROVIDERS: ADMIT Neuromusculoskeletal Medicine & OMM; ATTEND Neuromusculoskeletal Medicine & OMM
PROC: HZ42ZZZ Group Counseling for Substance Abuse Treatment, Cognitive-Behavioral (ICD-10-PCS; principal; 2019-01-14)
DX: F10.20 Alcohol dependence, uncomplicated (principal); F14.20 Cocaine dependence, uncomplicated; F17.210 Nicotine dependence, cigarettes, uncomplicated; F31.9 Bipolar disorder, unspecified; R63.4 Abnormal weight loss; J45.909 Unspecified asthma, uncomplicated; G47.00 Insomnia, unspecified; Z88.0 Allergy status to penicillin; Z91.013 Allergy to seafood; Z91.5 Personal history of self-harm; Z59.0 Homelessness

== ENCOUNTER 2019-12-19 11:15 | Inpatient (IN) | payer OTHER ==
--- OUTSIDE RECORDS SUMMARY | 2019-12-19 11:19 | XMS ---
:1965 Author Organization [facility] Support Name Relationship Address Phone UE Unavailable Unavailable Unavailable EDI MONZON [place], [place] [address] Edi Monzon Unavailable [address] [place] [address] Re-disclosure Warning The records that you are about to access may contain information from federally- assisted alcohol or drug abuse programs. If such information is present, then the following federally mandated warning applies: This information has been disclosed to you from records protected by federal confidentiality rules (42 CFR part 2). The federal rules prohibit you from making any further disclosure of this information unless further disclosure is expressly permitted by the written consent of the person to whom it pertains or as otherwise permitted by 42 CFR part 2. A general authorization for the release of medical or other information is NOT sufficient for this purpose. The Federal rules restrict any use of the information to criminally investigate or prosecute any alcohol or drug abuse patient.The records that you are about to access may contain highly sensitive health information, the redisclosure of which is protected by Article 27-F of the [facility] Public Health law. If you continue you may haveaccess to information: Regarding HIV / AIDS; Provided by facilities licensed or operated by the [facility] Office of Mental Health; or Provided by the [facility] Office for People With Developmental Disabilities. If such information is present, then the following [facility] mandated warning applies: This information has been disclosed to you from confidential records which are protected by state law. State law prohibits you from making any further disclosure of this information without the specific written consent of the person to whom it pertains, or as otherwise permitted by law. Any unauthorized further disclosure in violation of state law may result in a fine or senior care sentence or both. A general authorization for the release of medical or other information is NOT sufficient authorization for further disclosure. Medications Medication Brand Start Product Dose Route Administrative Pharmacy St atus Indications Reaction Description Data Name Date Form Instructions Instructions Source(s) ammonium Ammoni .0 active Ammonium e CW3 lactate 120 um 2020 {appl Lactate 12 % ([facility] MG/ML Lactat 12:00: icati [place] Topical e 12 % 00 AM on} Health Lotion EDT Care) Ammonium Lactate 12 % ammonium Ammoni .0 active Ammonium e CW3 lactate 120 um 2020 {appl Lactate 12 % ([facility] MG/ML Lactat 12:00: icati [place] Topical e 12 % 00 AM on} Health Lotion EDT Care) Ammonium Lactate 12 % Naproxen Naprox 08/02/ active Naproxen 3 75 eCW3 375 MG Oral en 375 2020 MG ([place] Tablet MG 12:00: [place] 00 AM Health EDT Care) ammonium Ammoni .0 active Ammonium e CW3 lactate 120 um 2020 {appl Lactate 12 % ([facility] MG/ML Lactat 12:00: icati [place] Topical e 12 % 00 AM on} Health Lotion EDT Care) Ammonium Lactate 12 % Naproxen Naprox 08/02/ active Naproxen 3 75 eCW3 375 MG Oral en 375 2020 MG ([place] Tablet MG 12:00: [place] 00 AM Health EDT Care) Lidocaine Lidoca 06/26/ active Lidocaine 5 eCW3 50 MG/ML ine 5 2020 % ([facility] Topical % 12:00: [place] Cream 00 AM Health Lidocaine 5 EDT Care) % Lidocaine Lidoca 06/26/ active Lidocaine 5 eCW3 50 MG/ML ine 5 2020 % ([facility] Topical % 12:00: [place] Cream 00 AM Health Lidocaine 5 EDT Care) % Lidocaine Lidoca 06/26/ active Lidocaine 5 eCW3 50 MG/ML ine 5 2020 % ([facility] Topical % 12:00: [place] Cream 00 AM Health Lidocaine 5 EDT Care) % Lidocaine Lidoca 06/26/ active Lidocaine 5 eCW3 50 MG/ML ine 5 2020 % ([facility] Topical % 12:00: [place] Cream 00 AM Health Lidocaine 5 EDT Care) % Albuterol Albute 06/14/ 3.0 active Albuterol eCW3 0.83 MG/ML rol 2020 {ml_a Sulfate (2.5 ([facility] Inhalant Sulfat 12:00: s_nee MG/3ML) Mary er Solution e (2.5 00 AM ded} 0.083% Health Albuterol MG/3ML EDT Care) Sulfate ) (2.5 0.083% MG/3ML) 0.083% Albuterol [place] 3.0 active Albuterol eCW3 0.83 MG/ML rol 2019 {ml_a Sulfate (2.5 ([facility] Inhalant Sulfat 12:00: s_nee MG/3ML) Mary er Solution e (2.5 00 AM ded} 0.083% Health Albuterol MG/3ML EDT Care) Sulfate ) (2.5 0.083% MG/3ML) 0.083% Albuterol [place] 1.0 active Albuterol eCW3 Sulfate HFA rol 2019 {puff Sulfate HFA ([facility]arcia 108 (90 Sulfat 12:00: _as_n 108 (90 Rive r Base) e HFA 00 AM eeded Base) Health MCG/ACT 108 EDT } MCG/ACT Care) (90 Base) MCG/AC T Albuterol Alb[place] 1.0 active Albuterol eCW3 Sulfate HFA rol 2019 {puff Sulfate HFA ([facility]arcia 108 (90 Sulfat 12:00: _as_n 108 (90 Rive r Base) e HFA 00 AM eeded Base) Health MCG/ACT 108 EDT } MCG/ACT Care) (90 Base) MCG/AC T Nebulizer - Nebuli 06/14/ active Nebuliz er - eCW3 zer - 2019 ([facility] 12:00: [facility] 00 AM Health EDT Care) Nebulizer - Nebuli 06/14/ active Nebuliz er - eCW3 zer - 2020 ([facility] 12:00: [place] 00 AM Health EDT Care) Albuterol [place] 3.0 active Albuterol eCW3 0.83 MG/ML rol 2020 {ml_a Sulfate (2.5 ([facility] Inhalant Sulfat 12:00: s_nee MG/3ML) Mary er Solution e (2.5 00 AM ded} 0.083% Health Albuterol MG/3ML EDT Care) Sulfate ) (2.5 0.083% MG/3ML) 0.083% Nebulizer - Nebuli 06/14/ active Nebuliz er - eCW3 zer - 2019 ([facility]arcia 12:00: [place] 00 AM Health EDT Care) Albuterol [place] 3.0 active Albuterol eCW3 0.83 MG/ML rol 2019 {ml_a Sulfate (2.5 ([facility] Inhalant Sulfat 12:00: s_nee MG/3ML) Mary er Solution e (2.5 00 AM ded} 0.083% Health Albuterol MG/3ML EDT Care) Sulfate ) (2.5 0.083% MG/3ML) 0.083% Albuterol [place] 1.0 active Albuterol eCW3 Sulfate HFA rol 2019 {puff Sulfate HFA (Garcia 108 (90 Sulfat 12:00: _as_n 108 (90 Rive r Base) e HFA 00 AM eeded Base) Health MCG/ACT 108 EDT } MCG/ACT Care) (90 Base) MCG/AC T Nebulizer - Nebuli 06/14/ active Nebuliz er - eCW3 zer - 2019 ([facility] 12:00: [place] 00 AM Health EDT Care) Albuterol [place] 1.0 active Albuterol eCW3 Sulfate HFA rol 2019 {puff Sulfate HFA (Garcia 108 (90 Sulfat 12:00: _as_n 108 (90 Rive r Base) e HFA 00 AM eeded Base) Health MCG/ACT 108 EDT } MCG/ACT Care) (90 Base) MCG/AC T Calcium Tums .0 active Tums 500 MG e CW3 Carbonate 500 MG 2020 {tabl (Garcia 500 MG 12:00: et} [place] Chewable 00 AM Health Tablet EST Care) [Tums] Tums 500 MG Calcium Tums .0 active Tums 500 MG e CW3 Carbonate 500 MG 2020 {tabl ([facility]arcia 500 MG 12:00: et} [place] Chewable 00 AM Health Tablet EST Care) [Tums] Tums 500 MG Calcium Tums .0 active Tums 500 MG e CW3 Carbonate 500 MG 2020 {tabl ([facility] 500 MG 12:00: et} [place] Chewable 00 AM Health Tablet EST Care) [Tums] Tums 500 MG Calcium Tums .0 active Tums 500 MG e CW3 Carbonate 500 MG 2019 {tabl ([facility]arcia 500 MG 12:00: et} [place] Chewable 00 AM Health Tablet EST Care) [Tums] Tums 500 MG Clotrimazol Clotri .0 active Clotrim azole eCW3 e 10 MG/ML mazole 2018 {appl 1 % ([place] Topical 1 % 12:00: icati [place] Cream 00 AM on_to Health Clotrimazol EDT _affe Care) e 1 % cted_ area} Hydrocortis Procto .0 active Proctos ol HC eCW3 one 25 asad HC 2018 {appl 2.5 % ([facility] MG/ML 2.5 % 12:00: icati [place] Topical 00 AM on_to Health Cream EDT _affe Care) [Proctosol] cted_ Proctosol area} HC 2.5 % Aluminum Antaci .0 active Antacid eC W3 Hydroxide d 2018 {ml_a Liquid ([facility] 40 MG/ML / Liquid 12:00: s_nee 200-200-2 0 [facility] Magnesium 200-20 00 AM ded} MG/5ML Healt h Hydroxide 0-20 EDT Care) 40 MG/ML / MG/5ML Simethicone 4 MG/ML Oral Suspension Antacid Liquid 200-200-20 MG/5ML Acetaminoph Acetam .0 active Acetami nophe eCW3 en 500 MG inophe 2018 {tabl n 500 MG (Hu dson Oral Tablet n 500 12:00: et_as Rive r MG 00 AM _need Health EDT ed} Care) Baclofen 10 Baclof .0 active Baclofe n 10 eCW3 MG Oral en 10 2018 {tabl MG ([facility] Tablet MG 12:00: et_wi [place] 00 AM th_fo Health EDT od_or Care) _milk } Docusate Docusa .0 active Docusate e CW3 Sodium 100 te 2018 {caps Sodium 100 (H udson MG Oral Sodium 12:00: ules_ MG [facility] Capsule 100 MG 00 AM as_ne Health EDT eded} Care) Insurance Providers Payer name Policy type Policy ID Covered Covered green party's Policy P epifanio / Coverage green party ID relationship to [place] [facility] ormation type maddox [employer] [id number] SP [id number] NON CAP [employer] [id number] SP [id number] NON CAP Medicaid [id number] S [id number] Regular Clinic Visit [facility] [id number] S [id number] MKD Dental [id number] S [id number] Dentaquest MKD Medicaid [id number] S [id number] Wrap Claims [place] [employer] [id number] S [id number] Medicaid [place] [facility] [id number] S [id number] [place] Medicaid Medicaid 4013 [id number] S [id number] Regular Clinic Visit Problems, Conditions, and Diagnoses Code Display Name Description Problem Type Effective Dates Data Source(s) J06.9 Upper respiratory Upper respiratory Problem 04/06/2019 eCW3 ([facility]gr[facility] tract infection tract infection 12:00:00 AM [facility]) M54.5 Chronic low back Chronic low back Problem 04/06/2019 eC W3 ([facility] pain pain 12:00:00 AM [facility]) R12 Heartburn Heartburn Problem 04/06/2019 eCW3 (Garcia 12:00:00 AM [facility] Care) Results ID Date Data Source [id number] 10/18/2019 12:00:00 AM EDT [facility] Name Value Range Interpretation Code Description Data Eduarda rce(s) Supporting Document(s ) 2019-nCoV [facility] RNA XXX NAVDEEP+probe- Imp This lab was ordered by [facility] and reported by [employer] ID Date Data Source [id number] 10/10/2019 03:25:00 PM EDT [facility] Name Value Range Interpretation Code Description Data Eduarda rce(s) Supporting Document(s ) SARS-COV-2 [facility] RESP Diagnostics QL NAVDEEP+PROBE This lab was ordered by [facility]+H AST TOMAS and reported by [facility]. Procedure Social History Code Duration Value Status Description Data Source(s ) Smoking 08/03/2019 Current Smoker completed Current Smoker eCW3 ( [facility] 12:00:00 AM EDT Health Ca re) Smoking 08/03/2019 Current Smoker completed Current Smoker eCW3 ( [facility] 12:00:00 AM ED Health Ca re) Smoking 08/03/2019 Current Smoker completed Current Smoker eCW3 ( [facility] 12:00:00 AM ED Health Mi re) Smoking 06/27/2019 Current Smoker completed Current Smoker eCW3 ( [facility] 12:00:00 AM EDT Health Ca re) Smoking 04/06/2019 Current Smoker completed Current Smoker eCW3 ( [facility] 12:00:00 AM [facility] Health Mi re) Patient Treatment Plan of Care Planned Activity Planned Date Details Description Data Source (s) ammonium lactate 120 MG/ML 08/03/2019 12:00:00 eCW3 ([facility] Topical Lotion [facility]) Naproxen 375 MG Oral 08/03/2019 12:00:00 eCW3 ([facility] Tablet [facility]) ammonium lactate 120 MG/ML 08/03/2019 12:00:00 eCW3 ([facility] Topical Lotion [facility]) Naproxen 375 MG Oral 08/03/2019 12:00:00 eCW3 ([facility] Tablet [facility]) ammonium lactate 120 MG/ML 08/03/2019 12:00:00 eCW3 ([facility] Topical Lotion [facility]) Lidocaine 50 MG/ML Topical 06/27/2019 12:00:00 eCW3 ([facility] Cream [facility]) Acetaminophen 500 MG Oral 10/17/2018 12:00:00 eCW3 ([facility] Tablet [facility]) Aluminum Hydroxide 40 10/17/2018 12:00:00 eCW3 ([facility] MG/ML / Magnesium [facility] Health Car e) Hydroxide 40 MG/ML / Simethicone 4 MG/ML Oral Suspension Docusate Sodium 100 MG 10/17/2018 12:00:00 eCW3 ([facility] Oral Capsule [facility]) Hydrocortisone 25 MG/ML 10/17/2018 12:00:00 eCW3 ([facility] [place] Topical Cream [Proctosol] [facility]) Baclofen 10 MG Oral Tablet 10/17/2018 12:00:00 eCW3 ([facility]) Clotrimazole 10 MG/ML 10/17/2018 12:00:00 eCW3 ([facility] Topical Cream [facility])
--- NOTE | 2019-12-19 11:56 | BHS.RME ---
2019 N Coronavirus Screen - COVID-19 Screening Questions Dx of COVID-19 or had a positive test in the last 4 weeks?: No Contact with known/suspected COVID patient in last 14 days?: No Any of these symptoms or contact with someone who has?: None Traveled domestically/internationally in the last 14 days?: No Screen score: 0 Screen result: Further Evaluation Substance Use & Tx History - Substance Use History Alcohol Substance amount: 1-2 PINTS VODKA Frequency of use: Daily Substance route: Oral Date of Last Use: 12/18/19 (STARTED AGE 15) Nicotine Substance amount: 1/2 PACK Frequency of use: Daily Substance route: Smoking Date of Last Use: 12/19/19 Physical/Psych/Mental Status - Behavior General Behavior: Decreased activity Eye Contact: Normal - Cooperativeness Cooperativeness: Cooperative - Thinking Thought Processes: Tight, Logical, Goal Directed - Physical Health Problems Is patient presently having any pain?: No Does patient presently have any injuries (include location): No Does patient currently have a fever: No Is patient : No CIWA Nausea/Vomitin-Mild Nausea/No Vomiting (NOT YET IN FULL WITHDRAWALS DUE TO USE OF ALCOHOL THIS MORNING.) Muscle Tremors: 2 Anxiety: 4-Mod. Anxious/Guarded Agitation: 2 Paroxysmal Sweats: 3 Orientation: 1-Uncertain about Date Tacttile Disturbances: 0-None Auditory Disturbances: 0-None Visual Disturbances: 0-None Headache: 0-None Present CIWA-Ar Total Score: 13
[2019-12-19 12:33] VITALS: BMI 26.1
--- NOTE | 2019-12-19 13:09 | HP ---
CIWA Score Nausea/Vomitin-Mild Nausea/No Vomiting (NOT YET IN FULL WITHDRAWALS DUE TO USE OF ALCOHOL THIS MORNING.) Muscle Tremors: 2 Anxiety: 4-Mod. Anxious/Guarded Agitation: 2 Paroxysmal Sweats: 3 Orientation: 1-Uncertain about Date Tacttile Disturbances: 0-None Auditory Disturbances: 0-None Visual Disturbances: 0-None Headache: 0-None Present CIWA-Ar Total Score: 13 - Admission Criteria OASAS Guidelines: Admission for Medically Managed Detox: Requires at least one of the followin. CIWA greater than 12 2. Seizures within the past 24 hours 3. Delirium tremens within the past 24 hours 4. Hallucinations within the past 24 hours 5. Acute intervention needed for co occurring medical disorder 6. Acute intervention needed for co occurring psychiatric disorder 7. Severe withdrawal that cannot be handled at a lower level of care (continued vomiting, continued diarrhea, abnormal vital signs) requiring intravenous medication and/or fluids 8. Patient presents the following: CIWA greater than 12 Admission Criteria Met: Admission criteria met Admitting History and Physical - Admission Chief Complaint: "needed help in dealing with drugs and getting high," " wants detox and the rehab" History of Present Illness: Pt. is a 54 y.o. F w/ PMHx. of Anemia and Eczema presenting for detox and rehab because of alcohol and crack cocaine use. Pt. states that after her sister she started to get high frequently. Pt. states that she was Sober for 8 years prior to her sister dying and starting to feel depressed. Pt. lives in [address] and would like to return after "getting clean." PMHx.: Anemia, Eczema PSHx.: None Psych: Bipolar Disorder Social: Living with grandfather [place] Legal: None - Substance Use History Alcohol Substance amount: 1-2 PINTS VODKA Frequency of use: Daily Substance route: Oral Date of Last Use: 12/18/19 (STARTED AGE 15) Nicotine Substance amount: 1/2 PACK Frequency of use: Daily Substance route: Smoking Date of Last Use: 12/19/19 Crack-Cocaine $200 Daily Last used 12/18/19 Smoke - Past Medical History ...LMP: 08/03/07 ...: No Heme/Onc: Yes: Anemia - Past Surgical History Past Surgical History: Yes: Breast Biopsy (R. breast cyst removal) - Smoking History Smoking history: Current every day smoker Have you smoked in the past 12 months: Yes Aproximately how many cigarettes per day: 10 - Alcohol/Substance Use Hx Alcohol Use: Yes (reports drinking since 35 yo,I pint of vodka daily) History of Substance Use: reports: Cocaine - Social History ADL: Independent Occupation: unemployed History of Recent Travel: No Admission [facility] Allergies/Adverse Reactions: Allergies Allergy/AdvReac Type Severity Reaction Status Date / Time fish derived Allergy Severe Swelling Verified 12/19/19 12:49 Penicillins Allergy Severe Rash Verified 12/19/19 12:49 shellfish derived Allergy Severe Swelling Verified 12/19/19 12:49 sea food Allergy Severe Swelling Uncoded 12/19/19 12:49 History of Present Illness: Smoking History Smoking history: Current every day smoker Have you smoked in the past 12 months: Yes Aproximately how many cigarettes per day: 10 - Alcohol/Substance Use Hx Alcohol Use: Yes (reports drinking since 35 yo,I pint of vodka daily) History of Substance Use: reports: Cocaine Last drink today. Has eyeopener. - Social History - Ebola screening Have you traveled outside of the country in the last 21 days: No Have you had contact with anyone from an Ebola affected area: No Have you been sick,other than usual withdrawal symptoms: No Do you have a fever: No - Review of Systems Constitutional: Unintentional Wgt. Loss (Lost 10 pounds) EENT: reports: Blurred Vision (far-sighted uses glasses.). denies: Difficulty Swallowing, Throat Pain, Throat Swelling Respiratory: reports: Cough (went to sister's wednesday). denies: Productive cough GI: denies: Diarrhea, Difficulty Swallowing, Nausea, Vomiting : denies: Dysuria Musculoskeletal: reports: Joint Pain (L. knee, chronic), Muscle Pain Integumentary: reports: Rash (Eczema on hands and feet) Neuro: denies: Numbness, Tingling, Weakness Hematology: reports: Anemia Psychiatric: reports: Anxious Patient History - Patient Medical History Hx Anemia: Yes (NO TREATMENT) Hx Asthma: Yes (pump) Hx Chronic Obstructive Pulmonary Disease (COPD): No Hx Cancer: No Hx Cardiac Disorders: No Hx Congestive Heart Failure: No Hx Hypertension: No Hx Hypercholesterolemia: No Hx Pacemaker: No HX Cerebrovascular Accident: No Hx Seizures: No Hx Dementia: No Hx Diabetes: No Hx Gastrointestinal Disorders: No Hx Liver Disease: No Hx Genitourinary Disorders: No Hx Sexually Transmitted Disorders: No Hx Renal Disease (ESRD): No Hx Thyroid Disease: No Hx Human Immunodeficiency Virus (HIV): No (LAST 10/15) Hx Hepatitis C: No Hx Depression: No Hx Suicide Attempt: Yes (cut wrist 30yrs ago) Hx Bipolar Disorder: Yes (ONMEDS) Hx Schizophrenia: Yes (bipolar) - Patient Surgical History Past Surgical History: Yes Hx Neurologic Surgery: No Hx Cataract Extraction: No Hx Cardiac Surgery: No Hx Lung Surgery: No Hx Breast Surgery: Yes (R BREAST CYST/ LUMPECTOMY BENIGN CYST) Hx Breast Biopsy: No Hx Abdominal Surgery: No Hx Appendectomy: No Hx Cholecystectomy: No Hx Genitourinary Surgery: No Hx Section: No Hx Orthopedic Surgery: No Hx Hysterectomy: No Anesthesia Reaction: No - PPD History Previous Implant?: Yes Documented Results: Negative w/proof Implanted On Prior [facility] Admission?: Yes Date: 12/27/16 Results: 0mm - Reproductive History Last Menstrual Period: 08/03/07 Patient : No - Smoking Cessation Smoking history: Current every day smoker Have you smoked in the past 12 months: Yes Aproximately how many cigarettes per day: 10 Cigars Per Day: 0 Hx Chewing Tobacco Use: No Initiated information on smoking cessation: Yes 'Breaking Loose' booklet given: 12/19/19 - Substance & Tx. History Hx Alcohol Use: Yes ( 2pints of vodka daily, last drink today, has eyeopener) Hx Substance Use: Yes Substance Use Type: Cocaine (uses crack cocaine $200/ day, last used yesterday) Hx Substance Use Treatment: Yes ([facility], December 2018) Admission Physical Exam BHS - Vital Signs Vital Signs: Vital Signs - 24 hr 12/19/19 12:32 Temperature 97.7 F Pulse Rate 78 Respiratory 16 Rate Blood Pressure 117/71 - Physical General Appearance: Yes: Within Normal Limits, No Apparent Distress HEENTM: Yes: EOMI, Hearing grossly Normal, Pharynx Normal, Lessions (sore in anterior and inferior aspect of mouth) Respiratory: Yes: Lungs Clear, Normal Breath Sounds, No Accessory Muscle Use. No: Crackles, Rales, Stridor, Wheezing Neck: Yes: Within Normal Limits Breast: Yes: Breast Exam Deferred Cardiology: Yes: Regular Rhythm, Regular Rate, S1, S2 Abdominal: Yes: Normal Bowel Sounds, Non Tender, Soft. No: Distended, Guarding Back: Yes: Within Normal Limits. No: CVA Tenderness Musculoskeletal: Yes: Within Normal Limits, full range of Motion, Gait Steady Extremities: Yes: Normal Inspection, Normal Range of Motion, Non-Tender. No: Calf Tenderness Neurological: Yes: Within Normal Limits, Fully Oriented, Motor Strength 5/5, Normal Mood/Affect, Normal Response. No: Numbness Integumentary: Yes: Normal Color, Dry, Warm - Diagnostic (1) Alcohol dependence with uncomplicated withdrawal Current Visit: No Status: Acute (2) Bipolar disorder (manic depression) Current Visit: No Status: Chronic Qualifiers: Active/Remission status: remission status unspecified Qualified Code(s): F31.9 - Bipolar disorder, unspecified (3) Weight loss Current Visit: No Status: Chronic (4) Alcohol dependence Current Visit: No Status: Chronic Qualifiers: Substance use status: unspecified alcohol-induced disorder Qualified Code(s): F10.29 - Alcohol dependence with unspecified alcohol-induced disorder (5) Anemia Current Visit: No Status: Chronic Qualifiers: Anemia type: unspecified type Qualified Code(s): D64.9 - Anemia, unspecified (6) Arthritis Current Visit: No Status: Chronic (7) Cocaine dependence, uncomplicated Current Visit: No Status: Acute (8) Nicotine dependence Current Visit: No Status: Chronic Qualifiers: Nicotine product type: cigarettes Substance use status: uncomplicated Qualified Code(s): F17.210 - Nicotine dependence, cigarettes, uncomplicated Cleared for Admission S - Detox or Rehab [facility] Level of Care: Medically Managed (Librium protocol) Detox Regimen/Protocol: Librium Breathalyzer - Breathalyzer Breathalyzer: 0 Urine Drug Screen - Test Device Lot number: [id number] Expiration date: 06/06/21 - Control Is test valid?: Yes - Results Drug screen NEGATIVE: No Urine drug screen results: DANIS-Cocaine Inpatient Rehab Admission - Rehab Decision to Admit Inpatient rehab admission?: No
[2019-12-19] MEDS ORDERED: BISMUTH SUBSALICYLATE 524 MG/30 ML UD PO PRN (13:30)
[2019-12-19] MEDS ORDERED: METHOCARBAMOL 500 MG TABLET PO PRN (13:30)
[2019-12-19] MEDS ORDERED: IBUPROFEN 400 MG TABLET (FP) PO PRN (13:30)
[2019-12-19] MEDS ORDERED: ACETAMINOPHEN 325 MG TABLET (FP) PO PRN ×2 (13:30)
[2019-12-19] MEDS ORDERED: MENTHOL/PHENOL 1 EACH UD MM PRN (13:30)
[2019-12-19] MEDS ORDERED: chlordiazePOXIDE HCL 25 MG CAPSULE PO PRN (13:30)
[2019-12-19] MEDS ORDERED: MAGNESIUM HYDROX 2400MG/30ML ORAL SUSPENSION 30 ML CUP PO PRN (13:30)
[2019-12-19] MEDS ORDERED: ONDANSETRON *ODT* 4 MG TABLET SL PRN (13:30)
[2019-12-19] MEDS ORDERED: MAG HYDROX/AL HYDROX/SIMETH 30 ML UNIT-DOSE CUP PO PRN (13:30)
[2019-12-19] MEDS ORDERED: MAGNESIUM CITRATE 300 ML BOTTLE PO PRN (13:30)
[2019-12-19] MEDS ORDERED: NICOTINE POLACRILEX 2 MG GUM BUC PRN (13:30)
--- OUTSIDE RECORDS SUMMARY | 2019-12-19 13:44 | XMS ---
:1965 Author Organization [facility] Support Name Relationship Address Phone UE Unavailable Unavailable Unavailable EDI MONZON [place], [place] X[place] Edi Monzon Unavailable [address] [place] [place] [address] Re-disclosure Warning The records that you are [...] is protected by Article 27-F of the [facility] Public Health law. If you continue you may haveaccess to information: Regarding HIV / AIDS; Provided by facilities licensed or operated by the [facility] Office of Mental Health; or Provided by the [facility] Office for People With Developmental Disabilities. If such information is present, then the following [facility] mandated warning applies: This information has been [...] law may result in a fine or half-way sentence or both. A general authorization for [...] Lidocaine 5 EDT Care) % Albuterol Albute 3.0 active Albuterol eCW3 0.83 [...] name Policy type Policy ID Covered Covered democrat's Policy P epifanio / Coverage democrat ID relationship to [place] [facility] ormation type maddox [facility] [id number] SP [id number] NON CAP [facility] [id number] SP [id number] NON CAP Medicaid [id number] S [id number] Regular Clinic Visit [facility] [id number] S [id number] MKD Dental [id number] S [id number] Dentaquest MKD Medicaid [id number] S [id number] Wrap Claims [place] F[place] [id number] S [id number] Medicaid [place] [facility] [id number] S [id number] [place] Medicaid Medicaid 4013 [id number] Regular Clinic Visit Problems, Conditions, and Diagnoses Code Display Name Description Problem Type Effective Dates Data Source(s) J06.9 Upper respiratory Upper respiratory Problem 04/06/2019 eCW3 ([place] tract infection tract infection 12:00:00 AM [facility]) M54.5 Chronic low back Chronic low back Problem 04/06/2019 eC W3 ([place] pain pain 12:00:00 AM [facility]) R12 Heartburn Heartburn Problem 04/06/2019 eCW3 ([place] 12:00:00 AM [facility]) Results ID Date Data Source [id number] 10/18/2019 12:00:00 AM EDT [facility] Name Value Range Interpretation Code Description Data Eduarda rce(s) Supporting Document(s ) 2019-nCoV [facility] RNA XXX NAVDEEP+probe- Imp [facility] and reported by [employer] ID Date Data Source [id number] 10/10/2019 03:25:00 PM EDT [facility] Name Value Range Interpretation Code Description Data Eduarda rce(s) Supporting Document(s ) SARS-COV-2 [facility] RESP Diagnostics QL NAVDEEP+PROBE This lab was ordered by [facility]/REPLACED BY [facility] and reported by [facility] [...] 12:00:00 AM EDT Health [facility] re) Smoking 06/27/2019 Current Smoker completed Current Smoker eCW3 ( [place] 12:00:00 AM EDT Health [facility] re) Smoking 04/06/2019 Current Smoker completed Current Smoker eCW3 ( [place] 12:00:00 AM [facility] Health Ca re) Patient Treatment Plan of Care Planned Activity Planned Date Details Description Data Source (s) ammonium lactate 120 MG/ML 08/03/2019 12:00:00 eCW3 ([place] Topical Lotion [facility]) Naproxen 375 MG Oral 08/03/2019 12:00:00 eCW3 ([place] Tablet [facility]) ammonium lactate 120 MG/ML 08/03/2019 12:00:00 eCW3 ([place] Topical Lotion [facility]) Naproxen 375 MG Oral 08/03/2019 12:00:00 eCW3 ([place] Tablet [facility]) ammonium lactate 120 MG/ML 08/03/2019 12:00:00 eCW3 ([place] Topical Lotion [facility]) Lidocaine 50 MG/ML Topical 06/27/2019 12:00:00 eCW3 ([place] Cream [facility]) Acetaminophen 500 MG Oral 10/17/2018 12:00:00 eCW3 ([place] Tablet [facility]) Aluminum Hydroxide 40 10/17/2018 12:00:00 eCW3 ([place] MG/ML / Magnesium [facility] Car e) Hydroxide 40 MG/ML / Simethicone 4 MG/ML Oral Suspension Docusate Sodium 100 MG 10/17/2018 12:00:00 eCW3 ([place] Oral Capsule [facility]) Hydrocortisone 25 MG/ML 10/17/2018 12:00:00 eCW3 ([place] Topical Cream [Proctosol] [facility]) Baclofen 10 MG Oral Tablet 10/17/2018 12:00:00 eCW3 ([place] [facility]) Clotrimazole 10 MG/ML 10/17/2018 12:00:00 eCW3 ([facility] Topical Cream [facility])
[2019-12-19] MEDS: chlordiazePOXIDE HCL 25 MG CAPSULE PO SCH ×3 (14:35→22:39)
[2019-12-19] MEDS: hydrOXYzine PAMOATE 25 MG CAPSULE (FP) PO SCH ×3 (14:35→22:39)
--- NOTE | 2019-12-19 15:40 | EKG ---
Test Reason : Blood Pressure : / mmHG Vent. Rate : 069 BPM Atrial Rate : 069 BPM P-R Int : 140 ms QRS Dur : 082 ms QT Int : 420 ms P-R-T Axes : 064 065 058 degrees QTc Int : 450 ms NORMAL SINUS RHYTHM MODERATE VOLTAGE CRITERIA FOR LVH, MAY BE NORMAL VARIANT ABNORMAL ECG Confirmed by MD PASQUALE, SENIA ([id number]) on 12/19/2019 3:39:59 PM Referred By: Confirmed By:SENIA GIORDANO MD
[2019-12-19 17:00] LABS: POTASSIUM 4.2 mmol/L (3.5-5.1)
[2019-12-19 17:04] LABS: CALCIUM 9.6 mg/dL (8.5-10.1)
[2019-12-19 17:05] LABS: ALBUMIN 3.6 g/dl (3.4-5.0); BLOOD UREA NITROGEN 11.9 mg/dL (7-18)
[2019-12-19 17:08] LABS: CREATININE 0.9 mg/dL (0.55-1.3)
[2019-12-19 17:09] LABS: BILIRUBIN,TOTAL 0.5 mg/dL (0.2-1)
[2019-12-19 17:12] LABS: HEMOGLOBIN 11.9 GM/dL (10.7-15.3); MCH 27.6 pg (25.7-33.7); MCHC 32.1 g/dl (32.0-36.0); MEAN CELL VOLUME 85.9 fl (80-96); MEAN PLT VOLUME 9.2 fl (7.5-11.1); PLATELET COUNT 320 K/MM3 (134-434); RBC 4.31 M/mm3 (3.60-5.2); RDW 14.6 % (11.6-15.6); WHITE BLOOD COUNT 5.1 K/mm3 (4.0-10.0)
[2019-12-19] MEDS: THIAMINE HCL 100 MG TABLET (FP) PO SCH (22:39)
[2019-12-19] MEDS: MELATONIN 5 MG TABLETS PO SCH (22:39)
[2019-12-20] MEDS: chlordiazePOXIDE HCL 25 MG CAPSULE PO SCH ×4 (06:27→22:40)
[2019-12-20] MEDS: hydrOXYzine PAMOATE 25 MG CAPSULE (FP) PO SCH ×5 (06:27→22:44)
--- NOTE | 2019-12-20 08:26 | PN ---
Teaching Attending Note Name of Resident: Silvio Palmer ATTENDING PHYSICIAN STATEMENT I saw and evaluated the patient. I reviewed the resident's note and discussed the case with the resident. I agree with the resident's findings and plan as documented. SUBJECTIVE: OBJECTIVE: ASSESSMENT AND PLAN: 1. Alcohol use disorder Plan 1. Librium detox protocol
[2019-12-20] MEDS ORDERED: NICOTINE 7 MG/24 HOURS TOPICAL PATCH TD SCH (10:00)
[2019-12-20] MEDS: PRENATAL VITAMINS W/ FOLIC ACID TABLET (FP) PO SCH (10:05)
[2019-12-20] MEDS: NICOTINE 7 MG/24 HOURS TOPICAL PATCH TD SCH (10:06)
--- NOTE | 2019-12-20 10:10 | PN ---
S CIWA - CIWA Score Nausea/Vomitin-Mild Nausea/No Vomiting Muscle Tremors: 2 Anxiety: 2 Agitation: 1-Slight > Activity Paroxysmal Sweats: 1-Minimal Palms Moist Orientation: 0-Oriented Tacttile Disturbances: 0-None Auditory Disturbances: 0-None Visual Disturbances: 2-Mild Sensitivity Headache: 2-Mild CIWA-Ar Total Score: 11 S Progress Note (SOAP) Subjective: 54 years old female was admitted on 12/19/19 for alcohol withdrawal sx management treating with librium detox regiment feels ok today ate breakfast in room resting in bed prefers to stay in bed today encourage to discuss aftercare with counselor for alcohol abuse treatment Objective: 12/20/19 10:10 Vital Signs - 24 hr 12/19/19 12/19/19 12/19/19 12:32 13:42 14:23 Temperature 97.7 F 97.3 F L Pulse Rate 78 78 Respiratory 16 18 Rate Blood Pressure 117/71 112/75 O2 Sat by Pulse 98 99 Oximetry (%) 12/19/19 12/19/19 12/20/19 16:56 20:26 06:34 Temperature 97.3 F L 97.1 F L 97.8 F Pulse Rate 83 78 70 Respiratory 18 18 20 Rate Blood Pressure 111/69 117/72 97/64 O2 Sat by Pulse 99 100 Oximetry (%) 12/20/19 09:05 Temperature 98.2 F Pulse Rate 71 Respiratory 18 Rate Blood Pressure 104/65 O2 Sat by Pulse 100 Oximetry (%) Laboratory Tests 12/19/19 12/19/19 12/19/19 12:57 12:57 12:57 WBC 5.1 RBC 4.31 Hgb 11.9 Hct 37.0 MCV 85.9 MCH 27.6 MCHC 32.1 RDW 14.6 Plt Count 320 MPV 9.2 Sodium Potassium Chloride Carbon Dioxide Anion Gap BUN Creatinine Est GFR (CKD-EPI)AfAm Est GFR (CKD-EPI)NonAf Random Glucose Calcium Total Bilirubin AST ALT Alkaline Phosphatase Total Protein Albumin Syphilis Serology Non-reactive HIV Ag/Ab Combo Qual Negative 12/19/19 12:57 WBC RBC Hgb Hct MCV MCH MCHC RDW Plt Count MPV Sodium 141 Potassium 4.2 Chloride 107 Carbon Dioxide 27 Anion Gap 6 L BUN 11.9 Creatinine 0.9 Est GFR (CKD-EPI)AfAm 83.43 Est GFR (CKD-EPI)NonAf 71.98 Random Glucose 103 Calcium 9.6 Total Bilirubin 0.5 AST 22 ALT 20 Alkaline Phosphatase 84 Total Protein 7.0 Albumin 3.6 Syphilis Serology HIV Ag/Ab Combo Qual 12/20/19 10:11 covid pending Assessment: 12/20/19 10:11 alcohol withdrawal Plan: librium regiment
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
[2019-12-20] MEDS: DIVALPROEX SODIUM 250 MG TABLET E.C. PO SCH (22:39)
[2019-12-20] MEDS: QUEtiapine FUMARATE 100 MG TABLET (FP) PO SCH (22:40)
[2019-12-20] MEDS: THIAMINE HCL 100 MG TABLET (FP) PO SCH (22:40)
[2019-12-20] MEDS: MELATONIN 5 MG TABLETS PO SCH (22:41)
[2019-12-21] MEDS: hydrOXYzine PAMOATE 25 MG CAPSULE (FP) PO SCH (05:39)
[2019-12-21] MEDS: chlordiazePOXIDE HCL 25 MG CAPSULE PO SCH ×4 (05:39→22:05)
--- NOTE | 2019-12-21 09:34 | PN ---
S CIWA - CIWA Score Nausea/Vomitin-Mild Nausea/No Vomiting Muscle Tremors: 2 Anxiety: 2 Agitation: 1-Slight > Activity Paroxysmal Sweats: No Perspiration Orientation: 0-Oriented Tacttile Disturbances: 1-Very Mild Itch/Numbness Auditory Disturbances: 0-None Visual Disturbances: 2-Mild Sensitivity Headache: 0-None Present CIWA-Ar Total Score: 9 BHS Progress Note (SOAP) Subjective: 54 years old female was admitted on 12/19/19 for alcohol withdrawal sx management treating with librium detox regiment seen by psychiatrist received depakote and seroquel "feels better" "just tired" resting in bed comfortably Objective: 12/21/19 09:33 Vital Signs - 24 hr 12/20/19 12/20/19 12/20/19 12:55 16:42 20:17 Temperature 98.2 F 97.1 F L 97.3 F L Pulse Rate 68 86 70 Respiratory 18 17 17 Rate Blood Pressure 123/71 114/77 108/70 O2 Sat by Pulse 100 99 Oximetry (%) 12/21/19 12/21/19 06:41 08:35 Temperature 97.3 F L 97.3 F L Pulse Rate 79 76 Respiratory 18 18 Rate Blood Pressure 99/60 107/74 O2 Sat by Pulse 97 97 Oximetry (%) Laboratory Tests 12/19/19 12/19/19 12/19/19 12:45 12:57 12:57 WBC RBC Hgb Hct MCV MCH MCHC RDW Plt Count MPV Sodium Potassium Chloride Carbon Dioxide Anion Gap BUN Creatinine Est GFR (CKD-EPI)AfAm Est GFR (CKD-EPI)NonAf Random Glucose Calcium Total Bilirubin AST ALT Alkaline Phosphatase Total Protein Albumin Syphilis Serology Non-reactive COVID-19 (NAVDEEP) Not detected HIV Ag/Ab Combo Qual Negative 12/19/19 12/19/19 12:57 12:57 WBC 5.1 RBC 4.31 Hgb 11.9 Hct 37.0 MCV 85.9 MCH 27.6 MCHC 32.1 RDW 14.6 Plt Count 320 MPV 9.2 Sodium 141 Potassium 4.2 Chloride 107 Carbon Dioxide 27 Anion Gap 6 L BUN 11.9 Creatinine 0.9 Est GFR (CKD-EPI)AfAm 83.43 Est GFR (CKD-EPI)NonAf 71.98 Random Glucose 103 Calcium 9.6 Total Bilirubin 0.5 AST 22 ALT 20 Alkaline Phosphatase 84 Total Protein 7.0 Albumin 3.6 Syphilis Serology COVID-19 (NAVDEEP) HIV Ag/Ab Combo Qual lab noted Assessment: 12/21/19 09:33 alcohol withdrawal 12/21/19 09:34 depakote level pending Plan: librium regiment
[2019-12-21] MEDS ORDERED: QUEtiapine FUMARATE 25 MG TABLET PO SCH (10:00)
[2019-12-21] MEDS: DIVALPROEX SODIUM 250 MG TABLET E.C. PO SCH ×2 (10:24→22:05)
[2019-12-21] MEDS: PRENATAL VITAMINS W/ FOLIC ACID TABLET (FP) PO SCH (10:24)
[2019-12-21] MEDS: hydrOXYzine PAMOATE 50 MG CAPSULE (FP) PO SCH ×4 (10:25→22:08)
[2019-12-21] MEDS: NICOTINE 7 MG/24 HOURS TOPICAL PATCH TD SCH (10:25)
--- NOTE | 2019-12-21 15:46 | PN ---
[facility] Progress Note Note: Psychiatric nurse practitioner note: Patient scheduled for discharge tomorrow and will be attending [facility] rehab. A 30 day prescription of Seroquel 25mg daily + 100mg HS + Depakote 250mg BID was electronically sent to [facility], [address] [place] [address].
[2019-12-21 17:18] VITALS: TEMP 97.1
[2019-12-21 21:43] VITALS: BP 117/74; PULSE 86
[2019-12-21] MEDS: QUEtiapine FUMARATE 100 MG TABLET (FP) PO SCH (22:05)
[2019-12-21] MEDS: THIAMINE HCL 100 MG TABLET (FP) PO SCH (22:05)
[2019-12-21] MEDS: MELATONIN 5 MG TABLETS PO SCH (22:06)
[2019-12-22] MEDS ORDERED: chlordiazePOXIDE HCL 10 MG CAPSULE PO PRN
--- NOTE | 2019-12-22 01:06 | DS ---
[facility] Detox Discharge Summary Admission Date: 12/19/19 Discharge Date: 12/22/19 - History Present History: Alcohol Dependence, Cocaine Dependence Additional Comments: CLIENT REQUESTING TO LEAVE AT THIS TIME. INFORMED CLIENT THAT IT WAS UNSAFE TO LEAVE GIVEN THE TIME, AND NO TRANSPORTATION. OFFERED CLIENT COMFORT MEDS, SNACKS. CLIENT WAS ASKED IF THERE WERE ANY NEEDS WE COULD MEET FOR HER TO WAIT TILL ABOUT 6AM FOR DC. 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 CLIENT IS A/O X3, SEEN DANCING DOWN THE HALLWAY, SHE STATES [facility] AND WILL CALL SOMEONE TO PICK HER UP. NCAT RESP- NL GAIT IS STEADY Pertinent Past History: ANEMIA NICOTINE DEPENDENCE BIPOLAR ASTHMA - Physical Exam Results Vital Signs: Vital Signs Temperature 97.1 F L 12/21/19 20:25 Pulse Rate 86 12/21/19 20:25 Respiratory Rate 17 12/21/19 20:25 Blood Pressure 117/74 12/21/19 20:25 O2 Sat by Pulse Oximetry (%) 100 12/21/19 20:25 Pertinent Admission Physical Exam Findings: withdrawal sx's Laboratory Tests 12/19/19 12/19/19 12/19/19 12:45 12:57 12:57 WBC RBC Hgb Hct MCV MCH MCHC RDW Plt Count MPV Sodium Potassium Chloride Carbon Dioxide Anion Gap BUN Creatinine Est GFR (CKD-EPI)AfAm Est GFR (CKD-EPI)NonAf Random Glucose Calcium Total Bilirubin AST ALT Alkaline Phosphatase Total Protein Albumin Syphilis Serology Non-reactive COVID-19 (NAVDEEP) Not detected HIV Ag/Ab Combo Qual Negative 12/19/19 12/19/19 12:57 12:57 WBC 5.1 RBC 4.31 Hgb 11.9 Hct 37.0 MCV 85.9 MCH 27.6 MCHC 32.1 RDW 14.6 Plt Count 320 MPV 9.2 Sodium 141 Potassium 4.2 Chloride 107 Carbon Dioxide 27 Anion Gap 6 L BUN 11.9 Creatinine 0.9 Est GFR (CKD-EPI)AfAm 83.43 Est GFR (CKD-EPI)NonAf 71.98 Random Glucose 103 Calcium 9.6 Total Bilirubin 0.5 AST 22 ALT 20 Alkaline Phosphatase 84 Total Protein 7.0 Albumin 3.6 Syphilis Serology COVID-19 (NAVDEEP) HIV Ag/Ab Combo Qual - Treatment Hospital Course: Detoxed Safely, Responded well, Discharged Condition Good Patient has Accepted a Rehab Referral to: PER COUNSELOR NOTE CLIENT WAS REFERRED TO [facility] - Medication Discharge Medications: Ambulatory Orders Quetiapine Fumarate [Seroquel -] 100 mg PO HS 12/25/16 Divalproex [Depakote -] 250 mg PO TID #90 cap 01/04/17 Quetiapine Fumarate [Seroquel -] 25 mg PO DAILY 12/15/18 Albuterol Sulfate Inhaler - [Ventolin HFA Inhaler -] 2 inh PO QID PRN #1 inhaler 12/21/19 Divalproex [Depakote -] 250 mg PO BID #60 tablet.ec 12/21/19 Ferrous Sulfate [Feosol] 325 mg PO DAILY #30 tablet 12/21/19 Quetiapine Fumarate [Seroquel -] 25 mg PO DAILY #30 tablet 12/21/19 Quetiapine Fumarate [Seroquel -] 100 mg PO HS #30 tablet 12/21/19 - Diagnosis (1) Alcohol dependence with uncomplicated withdrawal Status: Resolved (2) Nicotine dependence Status: Chronic Qualifiers: Nicotine product type: cigarettes Substance use status: uncomplicated Qualified Code(s): F17.210 - Nicotine dependence, cigarettes, uncomplicated (3) Non-compliance Status: Chronic (4) Substance induced mood disorder Status: Chronic (5) Arthritis Status: Chronic (6) Asthma Status: Chronic Qualifiers: Asthma severity: unspecified severity Asthma persistence: unspecified Asthma complication type: uncomplicated Qualified Code(s): J45.909 - Unspecified asthma, uncomplicated (7) Weight loss Status: Chronic - AMA Did Patient Leave Against Medical Advice: Yes (ELOPED OFF UNIT)
[2019-12-22] MEDS ORDERED: chlordiazePOXIDE HCL 10 MG CAPSULE PO SCH (05:00)
[2019-12-23] MEDS ORDERED: chlordiazePOXIDE HCL 10 MG CAPSULE PO SCH (05:00)
[2019-12-24] MEDS ORDERED: chlordiazePOXIDE HCL 10 MG CAPSULE PO ONE (05:00)
== END 2019-12-22 01:04 | disposition left against medical advice (07) | DRG 770 ==
LOC: YASAS 11:15 → Y3N 13:34
PROVIDERS: ADMIT Allergy & Immunology; ATTEND Allergy & Immunology
PROC: HZ2ZZZZ Detoxification Services for Substance Abuse Treatment (ICD-10-PCS; principal; 2019-12-19)
DX: F10.230 Alcohol dependence with withdrawal, uncomplicated (principal); F14.20 Cocaine dependence, uncomplicated; F17.210 Nicotine dependence, cigarettes, uncomplicated; F19.24 Other psychoactive substance dependence with psychoactive substance-induced mood disorder; F31.9 Bipolar disorder, unspecified; D64.9 Anemia, unspecified; J45.909 Unspecified asthma, uncomplicated; M12.9 Arthropathy, unspecified; G47.00 Insomnia, unspecified; L30.9 Dermatitis, unspecified; M25.562 Pain in left knee; G89.29 Other chronic pain; R63.4 Abnormal weight loss; Z68.26 Body mass index [BMI] 26.0-26.9, adult; Z91.19 Patient's noncompliance with other medical treatment and regimen; Z88.0 Allergy status to penicillin; Z91.013 Allergy to seafood
CPT/HCPCS: 36415; 80053; 85027; 86780; 87389; 93005; 93010; C9803; U0003

== ENCOUNTER 2020-04-04 11:26 | Inpatient (IN) | payer OTHER ==
[2020-04-04 12:36] VITALS: BMI 30.6
[2020-04-04] MEDS ORDERED: NICOTINE POLACRILEX 2 MG GUM BUC PRN (12:55)
[2020-04-04] MEDS ORDERED: MAG HYDROX/AL HYDROX/SIMETH 30 ML UNIT-DOSE CUP PO PRN (12:55)
[2020-04-04] MEDS ORDERED: MAGNESIUM HYDROX 2400MG/30ML ORAL SUSPENSION 30 ML CUP PO PRN (12:55)
[2020-04-04] MEDS ORDERED: ACETAMINOPHEN 325 MG TABLET (FP) PO PRN ×2 (12:55)
[2020-04-04] MEDS ORDERED: MENTHOL/PHENOL 1 EACH UD MM PRN (12:55)
[2020-04-04] MEDS ORDERED: ONDANSETRON *ODT* 4 MG TABLET SL PRN (12:55)
[2020-04-04] MEDS ORDERED: METHOCARBAMOL 500 MG TABLET PO PRN (12:55)
[2020-04-04] MEDS ORDERED: MAGNESIUM CITRATE 300 ML BOTTLE PO PRN (12:55)
[2020-04-04] MEDS ORDERED: chlordiazePOXIDE HCL 25 MG CAPSULE PO PRN (12:55)
[2020-04-04] MEDS ORDERED: IBUPROFEN 400 MG TABLET (FP) PO PRN (12:55)
[2020-04-04] MEDS ORDERED: BISMUTH SUBSALICYLATE 524 MG/30 ML UD PO PRN (12:55)
[2020-04-04] MEDS ORDERED: ALBUTEROL SO4 HFA INHALER IH PRN (13:13)
[2020-04-04] MEDS: NICOTINE 14 MG/24 HOURS TOPICAL PATCH TD SCH (13:37)
[2020-04-04] MEDS: PRENATAL VITAMINS W/ FOLIC ACID TABLET (FP) PO SCH (13:37)
[2020-04-04] MEDS: hydrOXYzine PAMOATE 25 MG CAPSULE (FP) PO SCH ×3 (13:38→22:14)
[2020-04-04 15:29] LABS: HEMATOCRIT 35.5 % (32.4-45.2); HEMOGLOBIN 11.6 GM/dL (10.7-15.3); MCHC 32.7 g/dl (32.0-36.0); MEAN CELL VOLUME 85.8 fl (80-96); MEAN PLT VOLUME 8.8 fl (7.5-11.1); PLATELET COUNT 312 K/MM3 (134-434); RBC 4.13 M/mm3 (3.60-5.2); RDW 14.4 % (11.6-15.6); WHITE BLOOD COUNT 7.4 K/mm3 (4.0-10.0)
[2020-04-04 15:43] LABS: POTASSIUM 4.1 mmol/L (3.5-5.1)
[2020-04-04 15:45] LABS: ALBUMIN 3.7 g/dl (3.4-5.0); CALCIUM 9.7 mg/dL (8.5-10.1)
[2020-04-04 15:50] LABS: BILIRUBIN,TOTAL 0.2 mg/dL (0.2-1); TOT PROT 7.4 g/dl (6.4-8.2)
[2020-04-04 16:51] LABS: HIV INTERPRETATION NEGATIVE (NEGATIVE)
[2020-04-04] MEDS: chlordiazePOXIDE HCL 25 MG CAPSULE PO SCH ×2 (18:06→22:14)
[2020-04-04] MEDS ORDERED: MASKS NR ONE (20:52)
[2020-04-04] MEDS: MELATONIN 5 MG TABLETS PO SCH (22:14)
[2020-04-04] MEDS: THIAMINE HCL 100 MG TABLET (FP) PO SCH (22:14)
[2020-04-05] MEDS: chlordiazePOXIDE HCL 25 MG CAPSULE PO SCH ×4 (06:25→23:18)
[2020-04-05] MEDS: hydrOXYzine PAMOATE 25 MG CAPSULE (FP) PO SCH ×5 (06:26→23:04)
[2020-04-05] MEDS: PRENATAL VITAMINS W/ FOLIC ACID TABLET (FP) PO SCH (10:20)
[2020-04-05] MEDS: NICOTINE 14 MG/24 HOURS TOPICAL PATCH TD SCH (10:21)
[2020-04-05] MEDS: QUEtiapine FUMARATE 50 MG TABLET PO SCH (15:10)
[2020-04-05] MEDS ORDERED: DIVALPROEX SODIUM 250 MG TABLET E.C. PO SCH (22:00)
[2020-04-05] MEDS: DIVALPROEX SODIUM 500 MG TABLET E.C. PO SCH (23:03)
[2020-04-05] MEDS: MELATONIN 5 MG TABLETS PO SCH (23:03)
[2020-04-05] MEDS: QUEtiapine FUMARATE 100 MG TABLET (FP) PO SCH (23:03)
[2020-04-05] MEDS: THIAMINE HCL 100 MG TABLET (FP) PO SCH (23:04)
[2020-04-06] MEDS: hydrOXYzine PAMOATE 25 MG CAPSULE (FP) PO SCH ×5 (05:53→22:21)
[2020-04-06] MEDS: chlordiazePOXIDE HCL 25 MG CAPSULE PO SCH ×4 (05:53→22:22)
[2020-04-06] MEDS: DIVALPROEX SODIUM 500 MG TABLET E.C. PO SCH ×2 (10:35→22:21)
[2020-04-06] MEDS: PRENATAL VITAMINS W/ FOLIC ACID TABLET (FP) PO SCH (10:35)
[2020-04-06] MEDS: QUEtiapine FUMARATE 50 MG TABLET PO SCH ×2 (10:35→17:34)
[2020-04-06] MEDS: NICOTINE 14 MG/24 HOURS TOPICAL PATCH TD SCH (10:37)
[2020-04-06] MEDS: QUEtiapine FUMARATE 100 MG TABLET (FP) PO SCH (22:21)
[2020-04-06] MEDS: THIAMINE HCL 100 MG TABLET (FP) PO SCH (22:21)
[2020-04-06] MEDS: MELATONIN 5 MG TABLETS PO SCH (22:22)
[2020-04-07] MEDS ORDERED: chlordiazePOXIDE HCL 10 MG CAPSULE PO PRN
[2020-04-07] MEDS: hydrOXYzine PAMOATE 25 MG CAPSULE (FP) PO SCH ×5 (05:44→22:25)
[2020-04-07] MEDS: chlordiazePOXIDE HCL 10 MG CAPSULE PO SCH ×4 (05:44→22:26)
[2020-04-07] MEDS: PRENATAL VITAMINS W/ FOLIC ACID TABLET (FP) PO SCH (10:20)
[2020-04-07] MEDS: QUEtiapine FUMARATE 50 MG TABLET PO SCH ×2 (10:20→17:46)
[2020-04-07] MEDS: DIVALPROEX SODIUM 500 MG TABLET E.C. PO SCH ×2 (10:20→22:24)
[2020-04-07] MEDS: NICOTINE 14 MG/24 HOURS TOPICAL PATCH TD SCH (10:21)
[2020-04-07] MEDS: QUEtiapine FUMARATE 100 MG TABLET (FP) PO SCH (22:24)
[2020-04-07] MEDS: MELATONIN 5 MG TABLETS PO SCH (22:25)
[2020-04-07] MEDS: THIAMINE HCL 100 MG TABLET (FP) PO SCH (22:25)
[2020-04-08] MEDS: hydrOXYzine PAMOATE 25 MG CAPSULE (FP) PO SCH ×5 (06:15→22:23)
[2020-04-08] MEDS: chlordiazePOXIDE HCL 10 MG CAPSULE PO SCH ×2 (06:15→17:51)
[2020-04-08] MEDS: NICOTINE 14 MG/24 HOURS TOPICAL PATCH TD SCH (09:45)
[2020-04-08] MEDS: DIVALPROEX SODIUM 500 MG TABLET E.C. PO SCH ×2 (09:46→22:22)
[2020-04-08] MEDS: QUEtiapine FUMARATE 50 MG TABLET PO SCH ×2 (09:46→15:06)
[2020-04-08] MEDS: PRENATAL VITAMINS W/ FOLIC ACID TABLET (FP) PO SCH (09:47)
[2020-04-08] MEDS: THIAMINE HCL 100 MG TABLET (FP) PO SCH (22:22)
[2020-04-08] MEDS: QUEtiapine FUMARATE 100 MG TABLET (FP) PO SCH (22:22)
[2020-04-08] MEDS: MELATONIN 5 MG TABLETS PO SCH (22:23)
[2020-04-09] MEDS ORDERED: chlordiazePOXIDE HCL 10 MG CAPSULE PO ONE (05:00)
[2020-04-09] MEDS: hydrOXYzine PAMOATE 25 MG CAPSULE (FP) PO SCH ×2 (06:24→10:05)
[2020-04-09 09:09] VITALS: BP 97/68; PULSE 80; TEMP 97.3
[2020-04-09] MEDS: DIVALPROEX SODIUM 500 MG TABLET E.C. PO SCH (10:04)
[2020-04-09] MEDS: NICOTINE 14 MG/24 HOURS TOPICAL PATCH TD SCH (10:04)
[2020-04-09] MEDS: PRENATAL VITAMINS W/ FOLIC ACID TABLET (FP) PO SCH (10:04)
[2020-04-09] MEDS: QUEtiapine FUMARATE 50 MG TABLET PO SCH (10:05)
== END 2020-04-09 12:02 | disposition other institution (70) | DRG 774 ==
LOC: YASAS 11:26 → Y3N 12:49
PROVIDERS: ADMIT Allergy & Immunology; ATTEND Allergy & Immunology
PROC: HZ2ZZZZ Detoxification Services for Substance Abuse Treatment (ICD-10-PCS; principal; 2020-04-04)
DX: F10.230 Alcohol dependence with withdrawal, uncomplicated (principal); F14.20 Cocaine dependence, uncomplicated; F17.210 Nicotine dependence, cigarettes, uncomplicated; F19.24 Other psychoactive substance dependence with psychoactive substance-induced mood disorder; F31.9 Bipolar disorder, unspecified; J45.909 Unspecified asthma, uncomplicated; G47.00 Insomnia, unspecified; M12.9 Arthropathy, unspecified; Z86.2 Personal history of diseases of the blood and blood-forming organs and certain disorders involving the immune mechanism; Z91.410 Personal history of adult physical and sexual abuse; Z91.5 Personal history of self-harm; Z88.0 Allergy status to penicillin; Z91.013 Allergy to seafood; Z56.0 Unemployment, unspecified
CPT/HCPCS: 36415; 80053; 80164; 85027; 86780; 86803; 87389; C9803; U0003

== ENCOUNTER 2020-04-09 12:08 | Inpatient (IN) | payer OTHER ==
[2020-04-09] MEDS ORDERED: guaiFENesin 200 MG/10 ML 10 ML UNIT-DOSE CUPS PO PRN (17:04)
[2020-04-09] MEDS ORDERED: MAGNESIUM HYDROX 2400MG/30ML ORAL SUSPENSION 30 ML CUP PO PRN (17:04)
[2020-04-09] MEDS ORDERED: MAGNESIUM CITRATE 300 ML BOTTLE PO PRN (17:04)
[2020-04-09] MEDS ORDERED: LOPERAMIDE HCL 2 MG CAPSULE PO PRN (17:04)
[2020-04-09] MEDS ORDERED: MENTHOL/PHENOL 1 EACH UD MM PRN (17:04)
[2020-04-09] MEDS ORDERED: NICOTINE POLACRILEX 2 MG GUM BUC PRN (17:04)
[2020-04-09] MEDS ORDERED: P-EPHED 60MG/TRIPROLIDI 2.5MG TABLET PO PRN (17:04)
[2020-04-09] MEDS ORDERED: ALBUTEROL SO4 HFA INHALER IH PRN (17:05)
[2020-04-09] MEDS: QUEtiapine FUMARATE 50 MG TABLET PO SCH (17:20)
[2020-04-09] MEDS: THIAMINE HCL 100 MG TABLET (FP) PO SCH (21:47)
[2020-04-09] MEDS: DIVALPROEX SODIUM 500 MG TABLET E.C. PO SCH (21:47)
[2020-04-09] MEDS: QUEtiapine FUMARATE 100 MG TABLET (FP) PO SCH (21:47)
[2020-04-09] MEDS: MELATONIN 5 MG TABLETS PO SCH (21:47)
[2020-04-10] MEDS: DIVALPROEX SODIUM 500 MG TABLET E.C. PO SCH ×2 (10:33→21:10)
[2020-04-10] MEDS: QUEtiapine FUMARATE 50 MG TABLET PO SCH ×2 (10:34→16:04)
[2020-04-10] MEDS: hydrOXYzine PAMOATE 25 MG CAPSULE (FP) PO PRN ×3 (10:34→21:10)
[2020-04-10] MEDS: NICOTINE 7 MG/24 HOURS TOPICAL PATCH TD SCH (10:34)
[2020-04-10] MEDS: MELATONIN 5 MG TABLETS PO SCH (21:09)
[2020-04-10] MEDS: THIAMINE HCL 100 MG TABLET (FP) PO SCH (21:09)
[2020-04-10] MEDS: QUEtiapine FUMARATE 100 MG TABLET (FP) PO SCH (21:10)
[2020-04-11] MEDS: DIVALPROEX SODIUM 500 MG TABLET E.C. PO SCH (09:47)
[2020-04-11] MEDS: QUEtiapine FUMARATE 50 MG TABLET PO SCH ×2 (09:47→17:06)
[2020-04-11] MEDS: PRENATAL VITAMINS W/ FOLIC ACID TABLET (FP) PO SCH (09:47)
[2020-04-11] MEDS: NICOTINE 7 MG/24 HOURS TOPICAL PATCH TD SCH (09:47)
[2020-04-11] MEDS: hydrOXYzine PAMOATE 25 MG CAPSULE (FP) PO PRN (09:47)
[2020-04-11] MEDS: ACETAMINOPHEN 325 MG TABLET (FP) PO PRN ×2 (11:50→23:10)
[2020-04-11] MEDS ORDERED: PT OWN MED DRAWER 7, Y5N ONE (19:34)
[2020-04-11] MEDS: THIAMINE HCL 100 MG TABLET (FP) PO SCH (23:12)
[2020-04-11] MEDS: MELATONIN 5 MG TABLETS PO SCH (23:12)
[2020-04-11] MEDS: QUEtiapine FUMARATE 200 MG TABLET PO SCH (23:13)
[2020-04-11] MEDS: DIVALPROEX SODIUM 250 MG TABLET E.C. PO SCH (23:13)
[2020-04-12] MEDS: PRENATAL VITAMINS W/ FOLIC ACID TABLET (FP) PO SCH (11:13)
[2020-04-12] MEDS: QUEtiapine FUMARATE 50 MG TABLET PO SCH ×2 (11:13→17:24)
[2020-04-12] MEDS: hydrOXYzine PAMOATE 25 MG CAPSULE (FP) PO PRN (11:13)
[2020-04-12] MEDS: NICOTINE 7 MG/24 HOURS TOPICAL PATCH TD SCH (11:16)
[2020-04-12] MEDS: ACETAMINOPHEN 325 MG TABLET (FP) PO PRN (11:16)
[2020-04-12] MEDS: DIVALPROEX SODIUM 250 MG TABLET E.C. PO SCH ×2 (14:34→21:18)
[2020-04-12] MEDS: QUEtiapine FUMARATE 200 MG TABLET PO SCH (21:18)
[2020-04-12] MEDS: MELATONIN 5 MG TABLETS PO SCH (21:19)
[2020-04-12] MEDS: THIAMINE HCL 100 MG TABLET (FP) PO SCH (21:19)
[2020-04-12] MEDS ORDERED: DIVALPROEX SODIUM 500 MG TABLET E.C. PO SCH (22:00)
[2020-04-13] MEDS: DIVALPROEX SODIUM 250 MG TABLET E.C. PO SCH ×3 (06:30→21:49)
[2020-04-13] MEDS: IBUPROFEN 400 MG TABLET (FP) PO PRN ×2 (07:46→18:17)
[2020-04-13] MEDS ORDERED: DIVALPROEX SODIUM 250 MG TABLET E.C. PO SCH (10:00)
[2020-04-13] MEDS: PRENATAL VITAMINS W/ FOLIC ACID TABLET (FP) PO SCH (11:02)
[2020-04-13] MEDS: NICOTINE 7 MG/24 HOURS TOPICAL PATCH TD SCH (11:03)
[2020-04-13] MEDS: QUEtiapine FUMARATE 50 MG TABLET PO SCH ×2 (11:03→18:15)
[2020-04-13] MEDS: hydrOXYzine PAMOATE 25 MG CAPSULE (FP) PO PRN (18:18)
[2020-04-13] MEDS: THIAMINE HCL 100 MG TABLET (FP) PO SCH (21:49)
[2020-04-13] MEDS: MELATONIN 5 MG TABLETS PO SCH (21:49)
[2020-04-13] MEDS: QUEtiapine FUMARATE 200 MG TABLET PO SCH (21:49)
[2020-04-14] MEDS: DIVALPROEX SODIUM 250 MG TABLET E.C. PO SCH ×3 (06:47→21:17)
[2020-04-14] MEDS: ACETAMINOPHEN 325 MG TABLET (FP) PO PRN ×2 (06:48→11:53)
[2020-04-14] MEDS: NICOTINE 7 MG/24 HOURS TOPICAL PATCH TD SCH (10:23)
[2020-04-14] MEDS: hydrOXYzine PAMOATE 25 MG CAPSULE (FP) PO PRN ×2 (10:23→13:17)
[2020-04-14] MEDS: QUEtiapine FUMARATE 50 MG TABLET PO SCH ×2 (10:23→17:28)
[2020-04-14] MEDS: PRENATAL VITAMINS W/ FOLIC ACID TABLET (FP) PO SCH (10:23)
[2020-04-14] MEDS: THIAMINE HCL 100 MG TABLET (FP) PO SCH (21:17)
[2020-04-14] MEDS: QUEtiapine FUMARATE 200 MG TABLET PO SCH (21:17)
[2020-04-14] MEDS: MELATONIN 5 MG TABLETS PO SCH (21:17)
[2020-04-15] MEDS: DIVALPROEX SODIUM 250 MG TABLET E.C. PO SCH ×3 (06:53→22:14)
[2020-04-15] MEDS: hydrOXYzine PAMOATE 25 MG CAPSULE (FP) PO PRN ×3 (09:25→22:15)
[2020-04-15] MEDS: NICOTINE 7 MG/24 HOURS TOPICAL PATCH TD SCH (09:25)
[2020-04-15] MEDS: ACETAMINOPHEN 325 MG TABLET (FP) PO PRN (09:25)
[2020-04-15] MEDS: QUEtiapine FUMARATE 50 MG TABLET PO SCH ×2 (09:25→17:09)
[2020-04-15] MEDS: PRENATAL VITAMINS W/ FOLIC ACID TABLET (FP) PO SCH (09:25)
[2020-04-15] MEDS: METHYL SALICYLATE/MENTHOL OINT 30 GM TUBE TP SCH ×2 (12:36→22:16)
[2020-04-15] MEDS: NAPROXEN 250 MG TABLET PO SCH ×2 (12:38→22:15)
[2020-04-15] MEDS: QUEtiapine FUMARATE 200 MG TABLET PO SCH (22:15)
[2020-04-15] MEDS: MELATONIN 5 MG TABLETS PO SCH (22:15)
[2020-04-15] MEDS: THIAMINE HCL 100 MG TABLET (FP) PO SCH (22:15)
[2020-04-16] MEDS: DIVALPROEX SODIUM 250 MG TABLET E.C. PO SCH ×3 (06:48→21:13)
[2020-04-16] MEDS: PRENATAL VITAMINS W/ FOLIC ACID TABLET (FP) PO SCH (10:54)
[2020-04-16] MEDS: QUEtiapine FUMARATE 50 MG TABLET PO SCH ×2 (10:54→17:23)
[2020-04-16] MEDS: hydrOXYzine PAMOATE 25 MG CAPSULE (FP) PO PRN ×2 (10:54→21:13)
[2020-04-16] MEDS: NAPROXEN 250 MG TABLET PO SCH ×2 (10:54→21:15)
[2020-04-16] MEDS: METHYL SALICYLATE/MENTHOL OINT 30 GM TUBE TP SCH ×2 (10:55→21:15)
[2020-04-16] MEDS: NICOTINE 7 MG/24 HOURS TOPICAL PATCH TD SCH (10:56)
[2020-04-16] MEDS: MAG HYDROX/AL HYDROX/SIMETH 30 ML UNIT-DOSE CUP PO PRN ×2 (14:02→21:13)
[2020-04-16] MEDS: MELATONIN 5 MG TABLETS PO SCH (21:12)
[2020-04-16] MEDS: THIAMINE HCL 100 MG TABLET (FP) PO SCH (21:12)
[2020-04-16] MEDS: QUEtiapine FUMARATE 200 MG TABLET PO SCH (21:13)
[2020-04-17] MEDS: DIVALPROEX SODIUM 250 MG TABLET E.C. PO SCH ×3 (07:17→21:34)
[2020-04-17] MEDS ORDERED: PT OWN MED DRAWER 7, Y5N ONE ×3 (08:56→22:50)
[2020-04-17] MEDS: QUEtiapine FUMARATE 50 MG TABLET PO SCH ×2 (11:05→16:24)
[2020-04-17] MEDS: PRENATAL VITAMINS W/ FOLIC ACID TABLET (FP) PO SCH (11:05)
[2020-04-17] MEDS: NICOTINE 7 MG/24 HOURS TOPICAL PATCH TD SCH (11:05)
[2020-04-17] MEDS: METHYL SALICYLATE/MENTHOL OINT 30 GM TUBE TP SCH ×2 (11:05→21:34)
[2020-04-17] MEDS: NAPROXEN 250 MG TABLET PO SCH ×2 (11:06→21:35)
[2020-04-17] MEDS: ACETAMINOPHEN 325 MG TABLET (FP) PO PRN (19:30)
[2020-04-17] MEDS: MAG HYDROX/AL HYDROX/SIMETH 30 ML UNIT-DOSE CUP PO PRN (20:57)
[2020-04-17] MEDS: QUEtiapine FUMARATE 200 MG TABLET PO SCH (21:34)
[2020-04-17] MEDS: THIAMINE HCL 100 MG TABLET (FP) PO SCH (21:34)
[2020-04-17] MEDS: MELATONIN 5 MG TABLETS PO SCH (21:35)
[2020-04-17] MEDS: hydrOXYzine PAMOATE 25 MG CAPSULE (FP) PO PRN (21:35)
[2020-04-18] MEDS: DIVALPROEX SODIUM 250 MG TABLET E.C. PO SCH ×3 (06:38→21:25)
[2020-04-18] MEDS ORDERED: PT OWN MED DRAWER 7, Y5N ONE ×2 (08:52→21:26)
[2020-04-18] MEDS: METHYL SALICYLATE/MENTHOL OINT 30 GM TUBE TP SCH ×2 (09:47→21:25)
[2020-04-18] MEDS: NAPROXEN 250 MG TABLET PO SCH ×2 (09:47→21:27)
[2020-04-18] MEDS: NICOTINE 7 MG/24 HOURS TOPICAL PATCH TD SCH (09:48)
[2020-04-18] MEDS: PRENATAL VITAMINS W/ FOLIC ACID TABLET (FP) PO SCH (09:49)
[2020-04-18] MEDS: QUEtiapine FUMARATE 50 MG TABLET PO SCH ×2 (09:49→18:51)
[2020-04-18] MEDS: hydrOXYzine PAMOATE 25 MG CAPSULE (FP) PO PRN ×2 (09:49→21:24)
[2020-04-18] MEDS: MELATONIN 5 MG TABLETS PO SCH (21:24)
[2020-04-18] MEDS: THIAMINE HCL 100 MG TABLET (FP) PO SCH (21:24)
[2020-04-18] MEDS: QUEtiapine FUMARATE 200 MG TABLET PO SCH (21:24)
[2020-04-18] MEDS: FAMOTIDINE 20 MG TABLET PO SCH (21:27)
[2020-04-19] MEDS: DIVALPROEX SODIUM 250 MG TABLET E.C. PO SCH ×3 (06:27→21:15)
[2020-04-19] MEDS: FAMOTIDINE 20 MG TABLET PO SCH ×2 (06:27→21:16)
[2020-04-19] MEDS: QUEtiapine FUMARATE 50 MG TABLET PO SCH ×2 (09:58→16:55)
[2020-04-19] MEDS: NAPROXEN 250 MG TABLET PO SCH ×2 (09:58→21:15)
[2020-04-19] MEDS: METHYL SALICYLATE/MENTHOL OINT 30 GM TUBE TP SCH ×2 (09:58→21:15)
[2020-04-19] MEDS: NICOTINE 7 MG/24 HOURS TOPICAL PATCH TD SCH (09:58)
[2020-04-19] MEDS: PRENATAL VITAMINS W/ FOLIC ACID TABLET (FP) PO SCH (09:58)
[2020-04-19] MEDS: QUEtiapine FUMARATE 200 MG TABLET PO SCH (21:14)
[2020-04-19] MEDS: THIAMINE HCL 100 MG TABLET (FP) PO SCH (21:14)
[2020-04-19] MEDS: MELATONIN 5 MG TABLETS PO SCH (21:15)
[2020-04-19] MEDS: hydrOXYzine PAMOATE 25 MG CAPSULE (FP) PO PRN (21:16)
[2020-04-20] MEDS: DIVALPROEX SODIUM 250 MG TABLET E.C. PO SCH ×3 (07:17→21:37)
[2020-04-20] MEDS: FAMOTIDINE 20 MG TABLET PO SCH ×2 (07:17→21:37)
[2020-04-20] MEDS ORDERED: PT OWN MED DRAWER 7, Y5N ONE ×4 (08:31→21:40)
[2020-04-20] MEDS: PRENATAL VITAMINS W/ FOLIC ACID TABLET (FP) PO SCH (09:40)
[2020-04-20] MEDS: METHYL SALICYLATE/MENTHOL OINT 30 GM TUBE TP SCH ×2 (09:40→21:36)
[2020-04-20] MEDS: QUEtiapine FUMARATE 50 MG TABLET PO SCH ×2 (09:40→17:07)
[2020-04-20] MEDS: NICOTINE 7 MG/24 HOURS TOPICAL PATCH TD SCH (09:41)
[2020-04-20] MEDS: NAPROXEN 250 MG TABLET PO SCH ×2 (13:28→21:45)
[2020-04-20] MEDS: MELATONIN 5 MG TABLETS PO SCH (21:36)
[2020-04-20] MEDS: THIAMINE HCL 100 MG TABLET (FP) PO SCH (21:37)
[2020-04-20] MEDS: hydrOXYzine PAMOATE 25 MG CAPSULE (FP) PO PRN (21:37)
[2020-04-20] MEDS: QUEtiapine FUMARATE 200 MG TABLET PO SCH (21:37)
[2020-04-21] MEDS: DIVALPROEX SODIUM 250 MG TABLET E.C. PO SCH ×3 (06:13→21:36)
[2020-04-21] MEDS ORDERED: PT OWN MED DRAWER 7, Y5N ONE ×3 (06:13→22:46)
[2020-04-21] MEDS: FAMOTIDINE 20 MG TABLET PO SCH ×2 (06:14→21:37)
[2020-04-21] MEDS: NAPROXEN 250 MG TABLET PO SCH ×2 (09:54→21:56)
[2020-04-21] MEDS: QUEtiapine FUMARATE 50 MG TABLET PO SCH ×2 (09:54→16:20)
[2020-04-21] MEDS: NICOTINE 7 MG/24 HOURS TOPICAL PATCH TD SCH (09:55)
[2020-04-21] MEDS: METHYL SALICYLATE/MENTHOL OINT 30 GM TUBE TP SCH ×2 (09:55→21:37)
[2020-04-21] MEDS: PRENATAL VITAMINS W/ FOLIC ACID TABLET (FP) PO SCH (09:56)
[2020-04-21] MEDS: hydrOXYzine PAMOATE 25 MG CAPSULE (FP) PO PRN ×2 (15:07→21:37)
[2020-04-21] MEDS: MELATONIN 5 MG TABLETS PO SCH (21:36)
[2020-04-21] MEDS: THIAMINE HCL 100 MG TABLET (FP) PO SCH (21:36)
[2020-04-21] MEDS: QUEtiapine FUMARATE 200 MG TABLET PO SCH (21:36)
[2020-04-22 06:38] VITALS: TEMP 97.3
[2020-04-22] MEDS: DIVALPROEX SODIUM 250 MG TABLET E.C. PO SCH ×3 (07:33→21:01)
[2020-04-22] MEDS: FAMOTIDINE 20 MG TABLET PO SCH ×2 (07:34→21:01)
[2020-04-22] MEDS ORDERED: PT OWN MED DRAWER 7, Y5N ONE ×2 (08:44→14:12)
[2020-04-22] MEDS: NAPROXEN 250 MG TABLET PO SCH ×2 (10:50→21:01)
[2020-04-22] MEDS: QUEtiapine FUMARATE 50 MG TABLET PO SCH ×2 (10:50→16:48)
[2020-04-22] MEDS: PRENATAL VITAMINS W/ FOLIC ACID TABLET (FP) PO SCH (10:50)
[2020-04-22] MEDS: NICOTINE 7 MG/24 HOURS TOPICAL PATCH TD SCH (10:51)
[2020-04-22] MEDS: METHYL SALICYLATE/MENTHOL OINT 30 GM TUBE TP SCH ×2 (10:51→21:00)
[2020-04-22] MEDS: MELATONIN 5 MG TABLETS PO SCH (21:00)
[2020-04-22] MEDS: THIAMINE HCL 100 MG TABLET (FP) PO SCH (21:00)
[2020-04-22] MEDS: QUEtiapine FUMARATE 200 MG TABLET PO SCH (21:01)
[2020-04-23] MEDS: DIVALPROEX SODIUM 250 MG TABLET E.C. PO SCH ×3 (07:26→21:33)
[2020-04-23] MEDS: FAMOTIDINE 20 MG TABLET PO SCH ×2 (07:26→21:33)
[2020-04-23] MEDS ORDERED: PT OWN MED DRAWER 7, Y5N ONE (08:35)
[2020-04-23] MEDS: QUEtiapine FUMARATE 50 MG TABLET PO SCH ×2 (09:58→18:26)
[2020-04-23] MEDS: PRENATAL VITAMINS W/ FOLIC ACID TABLET (FP) PO SCH (09:58)
[2020-04-23] MEDS: NAPROXEN 250 MG TABLET PO SCH ×2 (09:58→21:33)
[2020-04-23] MEDS: NICOTINE 7 MG/24 HOURS TOPICAL PATCH TD SCH (09:59)
[2020-04-23] MEDS: METHYL SALICYLATE/MENTHOL OINT 30 GM TUBE TP SCH ×2 (09:59→21:34)
[2020-04-23] MEDS: ACETAMINOPHEN 325 MG TABLET (FP) PO PRN (10:30)
[2020-04-23] MEDS: QUEtiapine FUMARATE 200 MG TABLET PO SCH (21:33)
[2020-04-23] MEDS: THIAMINE HCL 100 MG TABLET (FP) PO SCH (21:33)
[2020-04-23] MEDS: MELATONIN 5 MG TABLETS PO SCH (21:33)
[2020-04-23] MEDS: hydrOXYzine PAMOATE 25 MG CAPSULE (FP) PO PRN (21:33)
[2020-04-24] MEDS: FAMOTIDINE 20 MG TABLET PO SCH (06:29)
[2020-04-24] MEDS: DIVALPROEX SODIUM 250 MG TABLET E.C. PO SCH (06:29)
[2020-04-24 06:43] VITALS: BP 124/70; PULSE 75
== END 2020-04-24 08:22 | disposition home or self-care (01) | DRG 772 ==
LOC: YASAS 12:08 → Y3W 12:13 → Y3E 04-16 10:53
PROVIDERS: ADMIT Allergy & Immunology; ATTEND Allergy & Immunology
PROC: HZ42ZZZ Group Counseling for Substance Abuse Treatment, Cognitive-Behavioral (ICD-10-PCS; principal; 2020-04-09)
DX: F10.20 Alcohol dependence, uncomplicated (principal); F14.20 Cocaine dependence, uncomplicated; F17.210 Nicotine dependence, cigarettes, uncomplicated; F31.9 Bipolar disorder, unspecified; J45.909 Unspecified asthma, uncomplicated; K21.9 Gastro-esophageal reflux disease without esophagitis; M79.672 Pain in left foot; S92.512A Displaced fracture of proximal phalanx of left lesser toe(s), initial encounter for closed fracture; W22.03XA Walked into furniture, initial encounter; Y93.89 Activity, other specified; Y92.238 Other place in hospital as the place of occurrence of the external cause; Y99.8 Other external cause status; Z88.0 Allergy status to penicillin; Z91.013 Allergy to seafood
CPT/HCPCS: 80164; C9803; U0003

== ENCOUNTER 2020-04-13 12:11 | Emergency (ER) | payer OTHER ==
[2020-04-13 12:23] VITALS: TEMP 97; BMI 29.3
[2020-04-13 19:17] VITALS: BP 119/68; PULSE 82
== END 2020-04-13 17:30 | disposition home or self-care (01) ==
LOC: JER 12:11
DX: S92.502A Displaced unspecified fracture of left lesser toe(s), initial encounter for closed fracture (principal)
CPT/HCPCS: 73630-TC-LT; 99283-25

== ENCOUNTER 2020-07-08 16:18 | Inpatient (IN) | payer OTHER ==
[2020-07-08] MEDS ORDERED: BISMUTH SUBSALICYLATE 524 MG/30 ML UD PO PRN (18:32)
[2020-07-08] MEDS ORDERED: MAG HYDROX/AL HYDROX/SIMETH 30 ML UNIT-DOSE CUP PO PRN (18:32)
[2020-07-08] MEDS ORDERED: ACETAMINOPHEN 325 MG TABLET (FP) PO PRN ×2 (18:32)
[2020-07-08] MEDS ORDERED: MAGNESIUM HYDROX 2400MG/30ML ORAL SUSPENSION 30 ML CUP PO PRN (18:32)
[2020-07-08] MEDS ORDERED: chlordiazePOXIDE HCL 25 MG CAPSULE PO PRN (18:32)
[2020-07-08] MEDS ORDERED: IBUPROFEN 400 MG TABLET (FP) PO PRN (18:32)
[2020-07-08] MEDS ORDERED: ONDANSETRON *ODT* 4 MG TABLET SL PRN (18:32)
[2020-07-08] MEDS ORDERED: MAGNESIUM CITRATE 300 ML BOTTLE PO PRN (18:32)
[2020-07-08] MEDS ORDERED: MENTHOL/PHENOL 1 EACH UD MM PRN (18:32)
[2020-07-08] MEDS ORDERED: METHOCARBAMOL 500 MG TABLET PO PRN (18:32)
[2020-07-08 19:02] VITALS: BMI 27.5
[2020-07-08] MEDS: chlordiazePOXIDE HCL 25 MG CAPSULE PO SCH (23:51)
[2020-07-08] MEDS: THIAMINE HCL 100 MG TABLET (FP) PO SCH (23:52)
[2020-07-08] MEDS: MELATONIN 5 MG TABLETS PO SCH (23:52)
[2020-07-08] MEDS: hydrOXYzine PAMOATE 25 MG CAPSULE (FP) PO SCH (23:52)
[2020-07-09] MEDS: hydrOXYzine PAMOATE 25 MG CAPSULE (FP) PO SCH ×5 (05:55→23:01)
[2020-07-09] MEDS: chlordiazePOXIDE HCL 25 MG CAPSULE PO SCH ×4 (05:55→22:40)
[2020-07-09] MEDS ORDERED: ALBUTEROL SO4 HFA INHALER IH PRN (07:49)
[2020-07-09 09:53] LABS: HEMATOCRIT 35.7 % (32.4-45.2); MCH 28.3 pg (25.7-33.7); MCHC 33.5 g/dl (32.0-36.0); MEAN CELL VOLUME 84.4 fl (80-96); MEAN PLT VOLUME 8.3 fl (7.5-11.1); PLATELET COUNT 397 K/MM3 (134-434); RBC 4.23 M/mm3 (3.60-5.2); RDW 13.7 % (11.6-15.6); WHITE BLOOD COUNT 5.8 K/mm3 (4.0-10.0)
[2020-07-09] MEDS ORDERED: DIVALPROEX SODIUM 500 MG TABLET E.C. PO SCH (10:00)
[2020-07-09 10:01] LABS: ALBUMIN 3.2 g/dl (3.4-5.0); BLOOD UREA NITROGEN 7.7 mg/dL (7-18)
[2020-07-09 10:02] LABS: CREATININE 0.9 mg/dL (0.55-1.3)
[2020-07-09 10:04] LABS: BILIRUBIN,TOTAL 0.3 mg/dL (0.2-1); TOT PROT 6.4 g/dl (6.4-8.2)
[2020-07-09] MEDS: PRENATAL VITAMINS W/ FOLIC ACID TABLET (FP) PO SCH (10:37)
[2020-07-09] MEDS ORDERED: FLUCONAZOLE 50 MG TABLET PO ONE (13:44)
[2020-07-09] MEDS ORDERED: DIVALPROEX SODIUM 250 MG TABLET E.C. PO SCH (14:00)
[2020-07-09] MEDS ORDERED: DIVALPROEX SODIUM 250 MG TABLET E.C. PO ONE (22:00)
[2020-07-09] MEDS ORDERED: QUEtiapine FUMARATE 100 MG TABLET (FP) PO SCH (22:00)
[2020-07-09] MEDS: MELATONIN 5 MG TABLETS PO SCH (22:39)
[2020-07-09] MEDS: THIAMINE HCL 100 MG TABLET (FP) PO SCH (22:39)
[2020-07-10] MEDS: hydrOXYzine PAMOATE 25 MG CAPSULE (FP) PO SCH ×4 (05:23→17:28)
[2020-07-10] MEDS: chlordiazePOXIDE HCL 25 MG CAPSULE PO SCH ×3 (05:23→17:28)
[2020-07-10] MEDS: PRENATAL VITAMINS W/ FOLIC ACID TABLET (FP) PO SCH (10:50)
[2020-07-10] MEDS: DIVALPROEX SODIUM 250 MG TABLET E.C. PO SCH ×2 (10:50→15:37)
[2020-07-10] MEDS ORDERED: NYSTATIN 500,000 UNITS/5 ML SUSPENSION PO SCH (13:45)
[2020-07-10 14:34] VITALS: BP 101/43; PULSE 71; TEMP 98.1
[2020-07-11] MEDS ORDERED: chlordiazePOXIDE HCL 10 MG CAPSULE PO PRN
[2020-07-11] MEDS ORDERED: chlordiazePOXIDE HCL 10 MG CAPSULE PO SCH (05:00)
[2020-07-12] MEDS ORDERED: chlordiazePOXIDE HCL 10 MG CAPSULE PO SCH (05:00)
[2020-07-13] MEDS ORDERED: chlordiazePOXIDE HCL 10 MG CAPSULE PO ONE (05:00)
== END 2020-07-10 18:05 | disposition left against medical advice (07) | DRG 770 ==
LOC: YASAS 16:18 → Y6N 19:27
PROVIDERS: ADMIT Allergy & Immunology; ATTEND Allergy & Immunology
PROC: HZ2ZZZZ Detoxification Services for Substance Abuse Treatment (ICD-10-PCS; principal; 2020-07-08)
DX: F10.230 Alcohol dependence with withdrawal, uncomplicated (principal); F14.20 Cocaine dependence, uncomplicated; F17.210 Nicotine dependence, cigarettes, uncomplicated; F19.282 Other psychoactive substance dependence with psychoactive substance-induced sleep disorder; F31.9 Bipolar disorder, unspecified; D64.9 Anemia, unspecified; J45.909 Unspecified asthma, uncomplicated; M71.9 Bursopathy, unspecified; Z98.890 Other specified postprocedural states; Z91.410 Personal history of adult physical and sexual abuse; Z88.0 Allergy status to penicillin; Z91.013 Allergy to seafood
CPT/HCPCS: 36415; 80053; 80164; 85027; 86780; 93005; 93010; C9803; U0003; U0005

== ENCOUNTER 2021-08-27 09:33 | Inpatient (IN) | payer OTHER ==
[2021-08-27 10:49] VITALS: BMI 23.8
[2021-08-27] MEDS ORDERED: chlordiazePOXIDE HCL 25 MG CAPSULE ONE (11:09)
[2021-08-27] MEDS ORDERED: hydrOXYzine PAMOATE 25 MG CAPSULE (FP) PO ONE (11:09)
[2021-08-27] MEDS: hydrOXYzine PAMOATE 25 MG CAPSULE (FP) PO PRN ×3 (11:10→22:33)
[2021-08-27] MEDS: chlordiazePOXIDE HCL 25 MG CAPSULE PO SCH ×3 (11:10→22:33)
[2021-08-27] MEDS ORDERED: MAGNESIUM HYDROX 2400MG/30ML ORAL SUSPENSION 30 ML CUP PO PRN (11:22)
[2021-08-27] MEDS ORDERED: MAG HYDROX/AL HYDROX/SIMETH 30 ML UNIT-DOSE CUP PO PRN (11:22)
[2021-08-27] MEDS ORDERED: LOPERAMIDE HCL 2 MG CAPSULE PO PRN (11:22)
[2021-08-27] MEDS ORDERED: chlordiazePOXIDE HCL 25 MG CAPSULE PO PRN (11:22)
[2021-08-27] MEDS ORDERED: IBUPROFEN 600 MG TABLET (FP) PO PRN (11:22)
[2021-08-27] MEDS ORDERED: BENZOCAINE/MENTHOL (CHLORASEPTIC ) LOZENGE MM PRN (11:22)
[2021-08-27] MEDS ORDERED: IBUPROFEN 400 MG TABLET (FP) PO PRN (11:22)
[2021-08-27] MEDS ORDERED: DICYCLOMINE HCL 10 MG CAPSULE PO PRN (11:22)
[2021-08-27] MEDS ORDERED: ACETAMINOPHEN 325 MG TABLET (FP) PO PRN ×2 (11:22)
[2021-08-27] MEDS ORDERED: MAGNESIUM CITRATE 300 ML BOTTLE PO PRN (11:22)
[2021-08-27] MEDS ORDERED: ONDANSETRON *ODT* 4 MG TABLET SL PRN (11:22)
[2021-08-27] MEDS ORDERED: NICOTINE 10 MG CARTRIDGE (INHALER) IH PRN (11:22)
[2021-08-27] MEDS ORDERED: BISMUTH SUBSALICYLATE 262 MG/15 ML BTL PO PRN (11:22)
[2021-08-27] MEDS ORDERED: ALBUTEROL SO4 HFA INHALER IH PRN (11:26)
[2021-08-27] MEDS ORDERED: hydrOXYzine PAMOATE 25 MG CAPSULE (FP) PO SCH (14:00)
[2021-08-27 15:17] LABS: HEMATOCRIT 39.8 % (32.4-45.2); HEMOGLOBIN 12.9 GM/dL (10.7-15.3); MCH 27.2 pg (25.7-33.7); MCHC 32.4 g/dl (32.0-36.0); MEAN CELL VOLUME 83.8 fl (80-96); PLATELET COUNT 339 10^3/uL (134-434); RBC 4.74 M/mm3 (3.60-5.2); WHITE BLOOD COUNT 5.1 K/mm3 (4.0-10.0)
[2021-08-27 15:27] LABS: CALCIUM 9.5 mg/dL (8.5-10.1)
[2021-08-27 15:28] LABS: ALBUMIN 3.8 g/dl (3.4-5.0); BLOOD UREA NITROGEN 8.3 mg/dL (7-18)
[2021-08-27 15:31] LABS: CREATININE 0.9 mg/dL (0.55-1.3)
[2021-08-27 15:32] LABS: TOT PROT 7.3 g/dl (6.4-8.2)
[2021-08-27 15:33] LABS: BILIRUBIN,TOTAL 0.3 mg/dL (0.2-1)
[2021-08-27 16:10] LABS: HIV INTERPRETATION NEGATIVE (NEGATIVE)
[2021-08-27] MEDS: MELATONIN 5 MG TABLETS PO SCH (22:32)
[2021-08-27] MEDS: THIAMINE HCL 100 MG TABLET (FP) PO SCH (22:32)
[2021-08-27] MEDS: TRIAMCINOLONE ACET 0.5% OINT 15 GM TUBE TP SCH (23:08)
[2021-08-28] MEDS: hydrOXYzine PAMOATE 25 MG CAPSULE (FP) PO PRN ×3 (06:12→18:28)
[2021-08-28] MEDS: chlordiazePOXIDE HCL 25 MG CAPSULE PO SCH ×4 (06:13→23:24)
[2021-08-28] MEDS: METHOCARBAMOL 500 MG TABLET PO PRN ×2 (06:14→18:29)
[2021-08-28] MEDS ORDERED: PRENATAL VITAMINS W/ FOLIC ACID TABLET (FP) PO SCH (10:00)
[2021-08-28] MEDS: TRIAMCINOLONE ACET 0.5% OINT 15 GM TUBE TP SCH ×2 (10:51→23:23)
[2021-08-28 20:00] VITALS: BP 131/67; PULSE 69; TEMP 98.1
[2021-08-28] MEDS: THIAMINE HCL 100 MG TABLET (FP) PO SCH (23:24)
[2021-08-28] MEDS: MELATONIN 5 MG TABLETS PO SCH (23:24)
[2021-08-29] MEDS ORDERED: chlordiazePOXIDE HCL 25 MG CAPSULE PO SCH (05:00)
[2021-08-30] MEDS ORDERED: chlordiazePOXIDE HCL 10 MG CAPSULE PO PRN
[2021-08-30] MEDS ORDERED: chlordiazePOXIDE HCL 10 MG CAPSULE PO SCH (05:00)
[2021-08-31] MEDS ORDERED: chlordiazePOXIDE HCL 10 MG CAPSULE PO SCH (05:00)
[2021-09-01] MEDS ORDERED: chlordiazePOXIDE HCL 10 MG CAPSULE PO ONE (05:00)
== END 2021-08-28 22:55 | disposition left against medical advice (07) | DRG 770 ==
LOC: YASAS 09:33 → Y6N 11:18
PROVIDERS: ADMIT Allergy & Immunology; ATTEND Surgery
PROC: HZ2ZZZZ Detoxification Services for Substance Abuse Treatment (ICD-10-PCS; principal; 2021-08-27)
DX: F10.230 Alcohol dependence with withdrawal, uncomplicated (principal); F14.20 Cocaine dependence, uncomplicated; F17.210 Nicotine dependence, cigarettes, uncomplicated; F31.9 Bipolar disorder, unspecified; U07.1 COVID-19; J45.909 Unspecified asthma, uncomplicated; G47.00 Insomnia, unspecified; Z88.0 Allergy status to penicillin; Z91.013 Allergy to seafood; Z56.0 Unemployment, unspecified
CPT/HCPCS: 36415; 80053; 80164; 85027; 86780; 87389; 87811; C9803-CS; U0003; U0005

== ENCOUNTER 2022-01-17 10:50 | Inpatient (IN) | payer OTHER ==
[2022-01-17 12:49] VITALS: BMI 22.8
[2022-01-17] MEDS ORDERED: diazePAM 5 MG TABLET PO PRN (14:00)
[2022-01-17] MEDS ORDERED: MAG HYDROX/AL HYDROX/SIMETH 30 ML UNIT-DOSE CUP PO PRN (14:00)
[2022-01-17] MEDS ORDERED: NALOXONE HCL (KLOXXADO) 8 MG SPRAY NS PRN (14:00)
[2022-01-17] MEDS ORDERED: ACETAMINOPHEN 325 MG TABLET (FP) PO PRN ×2 (14:00)
[2022-01-17] MEDS ORDERED: IBUPROFEN 400 MG TABLET (FP) PO PRN (14:00)
[2022-01-17] MEDS ORDERED: DICYCLOMINE HCL 10 MG CAPSULE PO PRN (14:00)
[2022-01-17] MEDS ORDERED: BISMUTH SUBSALICYLATE 524 MG/30 ML PO PRN (14:00)
[2022-01-17] MEDS ORDERED: IBUPROFEN 600 MG TABLET (FP) PO PRN (14:00)
[2022-01-17] MEDS ORDERED: POLYETHYLENE GLYCOL (HEALTHYLAX) 3350 17 GM PACKET PO PRN (14:00)
[2022-01-17] MEDS ORDERED: MAGNESIUM HYDROX 2400MG/30ML ORAL SUSPENSION 30 ML CUP PO PRN (14:00)
[2022-01-17] MEDS ORDERED: BENZOCAINE/MENTHOL (CHLORASEPTIC ) LOZENGE MM PRN (14:00)
[2022-01-17] MEDS ORDERED: LOPERAMIDE HCL 2 MG CAPSULE PO PRN (14:00)
[2022-01-17] MEDS ORDERED: ONDANSETRON *ODT* 4 MG TABLET SL PRN (14:00)
[2022-01-17] MEDS ORDERED: METHOCARBAMOL 500 MG TABLET PO PRN (14:00)
[2022-01-17] MEDS ORDERED: diazePAM 5 MG TABLET ONE (14:40)
[2022-01-17] MEDS ORDERED: hydrOXYzine PAMOATE 25 MG CAPSULE (FP) PO ONE (14:40)
[2022-01-17] MEDS: hydrOXYzine PAMOATE 25 MG CAPSULE (FP) PO PRN (14:44)
[2022-01-17] MEDS: diazePAM 5 MG TABLET PO SCH ×2 (17:23→22:35)
[2022-01-17] MEDS ORDERED: MELATONIN 5 MG TABLETS PO SCH (22:00)
[2022-01-17] MEDS: THIAMINE HCL 100 MG TABLET (FP) PO SCH (22:35)
[2022-01-17] MEDS: DIVALPROEX SODIUM 250 MG TABLET E.C. PO SCH (22:36)
[2022-01-17] MEDS: QUEtiapine FUMARATE 50 MG TABLET PO SCH (22:36)
[2022-01-18] MEDS: diazePAM 5 MG TABLET PO SCH ×4 (05:51→22:50)
[2022-01-18] MEDS: DIVALPROEX SODIUM 250 MG TABLET E.C. PO SCH ×2 (10:31→22:50)
[2022-01-18] MEDS: PRENATAL VITAMINS W/ FOLIC ACID TABLET (FP) PO SCH (10:31)
[2022-01-18 11:40] LABS: HEMATOCRIT 37.5 % (32.4-45.2); HEMOGLOBIN 12.3 GM/dL (10.7-15.3); MCH 27.9 pg (25.7-33.7); MCHC 32.9 g/dl (32.0-36.0); MEAN PLT VOLUME 8.1 fl (7.5-11.1); PLATELET COUNT 303 10^3/uL (134-434); RBC 4.41 M/mm3 (3.60-5.2); RDW 13.6 % (11.6-15.6); WHITE BLOOD COUNT 4.4 K/mm3 (4.0-10.0)
[2022-01-18 11:49] LABS: CALCIUM 9.3 mg/dL (8.5-10.1)
[2022-01-18 11:50] LABS: ALBUMIN 2.9 g/dl (3.4-5.0); BLOOD UREA NITROGEN 15.4 mg/dL (7-18)
[2022-01-18 11:53] LABS: CREATININE 0.8 mg/dL (0.55-1.3)
[2022-01-18 11:55] LABS: BILIRUBIN,TOTAL 0.5 mg/dL (0.2-1); TOT PROT 5.8 g/dl (6.4-8.2)
[2022-01-18 20:46] LABS: URINE APPEARANCE CLEAR; URINE BILIRUBIN NEGATIVE (NEGATIVE); URINE COLOR YELLOW; URINE GLUCOSE (UA) NEGATIVE (NEGATIVE); URINE KETONE NEGATIVE (NEGATIVE); URINE LEUK ESTERASE NEGATIVE (NEGATIVE); URINE NITRITE NEGATIVE (NEGATIVE); URINE PROTEIN NEGATIVE (NEGATIVE); URINE UROBILINOGEN 0.2 mg/dL (0.2-1.0)
[2022-01-18] MEDS: QUEtiapine FUMARATE 50 MG TABLET PO SCH (22:49)
[2022-01-18] MEDS: THIAMINE HCL 100 MG TABLET (FP) PO SCH (22:49)
[2022-01-19] MEDS: diazePAM 5 MG TABLET PO SCH ×3 (06:54→22:52)
[2022-01-19] MEDS: DIVALPROEX SODIUM 250 MG TABLET E.C. PO SCH ×2 (10:23→22:51)
[2022-01-19] MEDS: PRENATAL VITAMINS W/ FOLIC ACID TABLET (FP) PO SCH (10:23)
[2022-01-19] MEDS: NICOTINE 10 MG CARTRIDGE (INHALER) IH PRN (15:36)
[2022-01-19] MEDS ORDERED: LIDOCAINE 5% TOPICAL PATCH TP ONE (20:28)
[2022-01-19] MEDS: LIDOCAINE PATCH REMOVAL MC SCH (22:43)
[2022-01-19] MEDS: THIAMINE HCL 100 MG TABLET (FP) PO SCH (22:51)
[2022-01-19] MEDS: hydrOXYzine PAMOATE 25 MG CAPSULE (FP) PO PRN (22:51)
[2022-01-19] MEDS: QUEtiapine FUMARATE 50 MG TABLET PO SCH (22:51)
[2022-01-20] MEDS: diazePAM 5 MG TABLET PO SCH ×2 (05:55→17:56)
[2022-01-20] MEDS: PRENATAL VITAMINS W/ FOLIC ACID TABLET (FP) PO SCH (10:24)
[2022-01-20] MEDS: hydrOXYzine PAMOATE 25 MG CAPSULE (FP) PO PRN (10:24)
[2022-01-20] MEDS: DIVALPROEX SODIUM 250 MG TABLET E.C. PO SCH ×2 (10:24→22:32)
[2022-01-20] MEDS: NICOTINE 10 MG CARTRIDGE (INHALER) IH PRN (21:10)
[2022-01-20] MEDS ORDERED: QUEtiapine FUMARATE 100 MG TABLET (FP) PO SCH (22:00)
[2022-01-20] MEDS: THIAMINE HCL 100 MG TABLET (FP) PO SCH (22:32)
[2022-01-20] MEDS: LIDOCAINE PATCH REMOVAL MC SCH (22:34)
[2022-01-21] MEDS ORDERED: diazePAM 5 MG TABLET PO ONE (06:00)
[2022-01-21 09:33] VITALS: BP 127/72; PULSE 82; RESP 18; TEMP 97.3
[2022-01-21] MEDS ORDERED: QUEtiapine FUMARATE 50 MG TABLET PO SCH (10:00)
[2022-01-21] MEDS: PRENATAL VITAMINS W/ FOLIC ACID TABLET (FP) PO SCH (10:43)
[2022-01-21] MEDS: DIVALPROEX SODIUM 250 MG TABLET E.C. PO SCH (10:43)
== END 2022-01-21 13:50 | disposition other institution (70) | DRG 774 ==
LOC: YASAS 10:50 → Y6N 14:11
PROVIDERS: ADMIT Allergy & Immunology; ATTEND Surgery
PROC: HZ2ZZZZ Detoxification Services for Substance Abuse Treatment (ICD-10-PCS; principal; 2022-01-17)
DX: F10.230 Alcohol dependence with withdrawal, uncomplicated (principal); F14.20 Cocaine dependence, uncomplicated; F17.210 Nicotine dependence, cigarettes, uncomplicated; F19.282 Other psychoactive substance dependence with psychoactive substance-induced sleep disorder; F19.24 Other psychoactive substance dependence with psychoactive substance-induced mood disorder; F31.9 Bipolar disorder, unspecified; R63.4 Abnormal weight loss; Z68.22 Body mass index [BMI] 22.0-22.9, adult; Z86.2 Personal history of diseases of the blood and blood-forming organs and certain disorders involving the immune mechanism; Z86.16 Personal history of COVID-19; Z88.0 Allergy status to penicillin; Z91.013 Allergy to seafood; Z91.199 Patient's noncompliance with other medical treatment and regimen due to unspecified reason; M54.50 Low back pain, unspecified; W07.XXXA Fall from chair, initial encounter; Y92.238 Other place in hospital as the place of occurrence of the external cause
CPT/HCPCS: 36415; 80053; 80164; 81003; 81025; 85027; 86780; C9803-CS; U0003; U0005

== ENCOUNTER 2022-01-21 14:00 | Inpatient (IN) | payer OTHER ==
[2022-01-21] MEDS ORDERED: MAGNESIUM HYDROX 2400MG/30ML ORAL SUSPENSION 30 ML CUP PO PRN (16:14)
[2022-01-21] MEDS ORDERED: LOPERAMIDE HCL 2 MG CAPSULE PO PRN (16:14)
[2022-01-21] MEDS ORDERED: P-EPHED 60MG/TRIPROLIDI 2.5MG TABLET PO PRN (16:14)
[2022-01-21] MEDS ORDERED: guaiFENesin 200 MG/10 ML 10 ML UNIT-DOSE CUPS PO PRN (16:14)
[2022-01-21] MEDS ORDERED: BENZOCAINE/MENTHOL (CHLORASEPTIC ) LOZENGE MM PRN (16:14)
[2022-01-21] MEDS ORDERED: ACETAMINOPHEN 325 MG TABLET (FP) PO PRN (16:14)
[2022-01-21] MEDS ORDERED: POLYETHYLENE GLYCOL (HEALTHYLAX) 3350 17 GM PACKET PO PRN (16:14)
[2022-01-21] MEDS ORDERED: NICOTINE 10 MG CARTRIDGE (INHALER) IH PRN (16:14)
[2022-01-21] MEDS ORDERED: NICOTINE 7 MG/24 HOURS TOPICAL PATCH TD PRN (16:14)
[2022-01-21] MEDS ORDERED: IBUPROFEN 400 MG TABLET (FP) PO PRN (16:14)
[2022-01-21] MEDS: MELATONIN 5 MG TABLETS PO SCH (21:35)
[2022-01-21] MEDS: QUEtiapine FUMARATE 100 MG TABLET (FP) PO SCH (21:35)
[2022-01-21] MEDS: THIAMINE HCL 100 MG TABLET (FP) PO SCH (21:35)
[2022-01-21] MEDS: DIVALPROEX SODIUM 250 MG TABLET E.C. PO SCH (21:35)
[2022-01-22] MEDS: PRENATAL VITAMINS W/ FOLIC ACID TABLET (FP) PO SCH (10:06)
[2022-01-22] MEDS: QUEtiapine FUMARATE 50 MG TABLET PO SCH (10:06)
[2022-01-22] MEDS: DIVALPROEX SODIUM 250 MG TABLET E.C. PO SCH ×2 (10:06→21:40)
[2022-01-22] MEDS ORDERED: TUBERCULIN PPD 5 TU/0.1ML VIAL ID ONE (10:40)
[2022-01-22 11:14] LABS: HIV INTERPRETATION NEGATIVE (NEGATIVE)
[2022-01-22] MEDS: THIAMINE HCL 100 MG TABLET (FP) PO SCH (21:40)
[2022-01-22] MEDS: MELATONIN 5 MG TABLETS PO SCH (21:40)
[2022-01-22] MEDS: QUEtiapine FUMARATE 100 MG TABLET (FP) PO SCH (21:40)
[2022-01-22] MEDS: hydrOXYzine PAMOATE 25 MG CAPSULE (FP) PO PRN (21:41)
[2022-01-23] MEDS: DIVALPROEX SODIUM 250 MG TABLET E.C. PO SCH ×2 (10:30→21:21)
[2022-01-23] MEDS: PRENATAL VITAMINS W/ FOLIC ACID TABLET (FP) PO SCH (10:30)
[2022-01-23] MEDS: QUEtiapine FUMARATE 50 MG TABLET PO SCH (10:30)
[2022-01-23] MEDS: THIAMINE HCL 100 MG TABLET (FP) PO SCH (21:21)
[2022-01-23] MEDS: QUEtiapine FUMARATE 100 MG TABLET (FP) PO SCH (21:21)
[2022-01-23] MEDS: hydrOXYzine PAMOATE 25 MG CAPSULE (FP) PO PRN (21:21)
[2022-01-23] MEDS: MELATONIN 5 MG TABLETS PO SCH (23:33)
[2022-01-24] MEDS: PRENATAL VITAMINS W/ FOLIC ACID TABLET (FP) PO SCH (10:02)
[2022-01-24] MEDS: QUEtiapine FUMARATE 50 MG TABLET PO SCH (10:03)
[2022-01-24] MEDS: DIVALPROEX SODIUM 250 MG TABLET E.C. PO SCH ×2 (10:03→21:47)
[2022-01-24] MEDS: QUEtiapine FUMARATE 100 MG TABLET (FP) PO SCH (21:47)
[2022-01-24] MEDS: MELATONIN 5 MG TABLETS PO SCH (21:47)
[2022-01-24] MEDS: THIAMINE HCL 100 MG TABLET (FP) PO SCH (21:47)
[2022-01-25] MEDS: PRENATAL VITAMINS W/ FOLIC ACID TABLET (FP) PO SCH (10:30)
[2022-01-25] MEDS: QUEtiapine FUMARATE 50 MG TABLET PO SCH (10:30)
[2022-01-25] MEDS: DIVALPROEX SODIUM 250 MG TABLET E.C. PO SCH ×2 (10:30→21:28)
[2022-01-25] MEDS: MAG HYDROX/AL HYDROX/SIMETH 30 ML UNIT-DOSE CUP PO PRN (10:32)
[2022-01-25] MEDS ORDERED: ONDANSETRON *ODT* 4 MG TABLET SL PRN (12:28)
[2022-01-25 14:41] VITALS: RESP 18
[2022-01-25] MEDS: QUEtiapine FUMARATE 100 MG TABLET (FP) PO SCH (21:28)
[2022-01-25] MEDS: THIAMINE HCL 100 MG TABLET (FP) PO SCH (21:28)
[2022-01-25] MEDS: MELATONIN 5 MG TABLETS PO SCH (21:29)
[2022-01-25] MEDS: hydrOXYzine PAMOATE 25 MG CAPSULE (FP) PO PRN (21:29)
[2022-01-26] MEDS: MAG HYDROX/AL HYDROX/SIMETH 30 ML UNIT-DOSE CUP PO PRN (07:14)
[2022-01-26] MEDS ORDERED: ONDANSETRON *ODT* 4 MG TABLET SL PRN (09:27)
[2022-01-26] MEDS: PRENATAL VITAMINS W/ FOLIC ACID TABLET (FP) PO SCH (09:57)
[2022-01-26] MEDS: DIVALPROEX SODIUM 250 MG TABLET E.C. PO SCH ×2 (09:57→21:42)
[2022-01-26] MEDS: QUEtiapine FUMARATE 50 MG TABLET PO SCH (09:57)
[2022-01-26] MEDS: QUEtiapine FUMARATE 100 MG TABLET (FP) PO SCH (21:42)
[2022-01-26] MEDS: THIAMINE HCL 100 MG TABLET (FP) PO SCH (21:42)
[2022-01-26] MEDS: MELATONIN 5 MG TABLETS PO SCH (21:43)
[2022-01-27] MEDS: QUEtiapine FUMARATE 50 MG TABLET PO SCH (09:25)
[2022-01-27] MEDS: DIVALPROEX SODIUM 250 MG TABLET E.C. PO SCH ×2 (09:25→21:32)
[2022-01-27] MEDS: PRENATAL VITAMINS W/ FOLIC ACID TABLET (FP) PO SCH (09:25)
[2022-01-27] MEDS: MAG HYDROX/AL HYDROX/SIMETH 30 ML UNIT-DOSE CUP PO PRN (09:26)
[2022-01-27] MEDS: THIAMINE HCL 100 MG TABLET (FP) PO SCH (21:32)
[2022-01-27] MEDS: QUEtiapine FUMARATE 100 MG TABLET (FP) PO SCH (21:32)
[2022-01-27] MEDS: MELATONIN 5 MG TABLETS PO SCH (21:32)
[2022-01-27] MEDS: hydrOXYzine PAMOATE 25 MG CAPSULE (FP) PO PRN (21:33)
[2022-01-28] MEDS: MAG HYDROX/AL HYDROX/SIMETH 30 ML UNIT-DOSE CUP PO PRN (04:13)
[2022-01-28 07:20] VITALS: BP 99/61; PULSE 86; TEMP 97.7
[2022-01-28] MEDS: PRENATAL VITAMINS W/ FOLIC ACID TABLET (FP) PO SCH (09:00)
[2022-01-28] MEDS: QUEtiapine FUMARATE 50 MG TABLET PO SCH (09:00)
[2022-01-28] MEDS: DIVALPROEX SODIUM 250 MG TABLET E.C. PO SCH (09:00)
== END 2022-01-28 09:03 | disposition home or self-care (01) | DRG 772 ==
LOC: YASAS 14:00 → Y5N 14:01
PROVIDERS: ADMIT Allergy & Immunology; ATTEND Psychiatry & Neurology Pain Medicine
PROC: HZ42ZZZ Group Counseling for Substance Abuse Treatment, Cognitive-Behavioral (ICD-10-PCS; principal; 2022-01-21)
DX: F10.20 Alcohol dependence, uncomplicated (principal); F14.20 Cocaine dependence, uncomplicated; F31.9 Bipolar disorder, unspecified; F19.24 Other psychoactive substance dependence with psychoactive substance-induced mood disorder; D64.9 Anemia, unspecified; G47.00 Insomnia, unspecified; Z91.199 Patient's noncompliance with other medical treatment and regimen due to unspecified reason; Z88.0 Allergy status to penicillin; Z91.013 Allergy to seafood
CPT/HCPCS: 36415; 80164; 86803; 87389; Q0162

== ENCOUNTER 2022-03-30 11:34 | Inpatient (IN) | payer OTHER ==
[2022-03-30 12:49] VITALS: BMI 23.1
[2022-03-30] MEDS ORDERED: BENZOCAINE/MENTHOL (CHLORASEPTIC ) LOZENGE MM PRN (13:19)
[2022-03-30] MEDS ORDERED: POLYETHYLENE GLYCOL (HEALTHYLAX) 3350 17 GM PACKET PO PRN (13:19)
[2022-03-30] MEDS ORDERED: ACETAMINOPHEN 325 MG TABLET (FP) PO PRN ×2 (13:19)
[2022-03-30] MEDS ORDERED: IBUPROFEN 400 MG TABLET (FP) PO PRN (13:19)
[2022-03-30] MEDS ORDERED: DICYCLOMINE HCL 10 MG CAPSULE PO PRN (13:19)
[2022-03-30] MEDS ORDERED: NALOXONE HCL (KLOXXADO) 8 MG SPRAY NS PRN (13:19)
[2022-03-30] MEDS ORDERED: LOPERAMIDE HCL 2 MG CAPSULE PO PRN (13:19)
[2022-03-30] MEDS ORDERED: BISMUTH SUBSALICYLATE 262 MG/15 ML BTL PO PRN (13:19)
[2022-03-30] MEDS ORDERED: METHOCARBAMOL 500 MG TABLET PO PRN (13:19)
[2022-03-30] MEDS ORDERED: ONDANSETRON *ODT* 4 MG TABLET SL PRN (13:19)
[2022-03-30] MEDS ORDERED: MAGNESIUM HYDROX 2400MG/30ML ORAL SUSPENSION 30 ML CUP PO PRN (13:19)
[2022-03-30] MEDS ORDERED: NICOTINE 10 MG CARTRIDGE (INHALER) IH PRN (13:19)
[2022-03-30] MEDS ORDERED: IBUPROFEN 600 MG TABLET (FP) PO PRN (13:19)
[2022-03-30] MEDS ORDERED: MAG HYDROX/AL HYDROX/SIMETH 30 ML UNIT-DOSE CUP PO PRN (13:19)
[2022-03-30] MEDS ORDERED: ALBUTEROL SO4 HFA INHALER IH PRN (13:23)
[2022-03-30] MEDS: PRENATAL VITAMINS W/ FOLIC ACID TABLET (FP) PO SCH (14:18)
[2022-03-30] MEDS: NICOTINE 14 MG/24 HOURS TOPICAL PATCH TD SCH (14:18)
[2022-03-30 18:53] LABS: HEMATOCRIT 35.4 % (32.4-45.2); HEMOGLOBIN 11.4 GM/dL (10.7-15.3); MCH 27.7 pg (25.7-33.7); MCHC 32.2 g/dl (32.0-36.0); MEAN CELL VOLUME 85.8 fl (80-96); MEAN PLT VOLUME 8.6 fl (7.5-11.1); PLATELET COUNT 338 10^3/uL (134-434); RBC 4.12 M/mm3 (3.60-5.2); RDW 14.6 % (11.6-15.6); WHITE BLOOD COUNT 6.1 K/mm3 (4.0-10.0)
[2022-03-30 18:58] LABS: ALBUMIN 3.7 g/dl (3.4-5.0); BLOOD UREA NITROGEN 14.6 mg/dL (7-18); CALCIUM 9.5 mg/dL (8.5-10.1)
[2022-03-30 19:01] LABS: CREATININE 0.8 mg/dL (0.55-1.3)
[2022-03-30 19:02] LABS: TOT PROT 6.9 g/dl (6.4-8.2)
[2022-03-30 19:03] LABS: BILIRUBIN,TOTAL 0.3 mg/dL (0.2-1)
[2022-03-30] MEDS: MELATONIN 5 MG TABLETS PO SCH (22:29)
[2022-03-30] MEDS: hydrOXYzine PAMOATE 25 MG CAPSULE (FP) PO PRN (22:29)
[2022-03-30] MEDS: THIAMINE HCL 100 MG TABLET (FP) PO SCH (22:29)
[2022-03-31] MEDS: PRENATAL VITAMINS W/ FOLIC ACID TABLET (FP) PO SCH (10:38)
[2022-03-31] MEDS: hydrOXYzine PAMOATE 25 MG CAPSULE (FP) PO PRN ×2 (10:38→22:23)
[2022-03-31] MEDS: NICOTINE 14 MG/24 HOURS TOPICAL PATCH TD SCH (10:38)
[2022-03-31] MEDS ORDERED: QUEtiapine FUMARATE 50 MG TABLET PO SCH (22:00)
[2022-03-31] MEDS: MELATONIN 5 MG TABLETS PO SCH (22:23)
[2022-03-31] MEDS: THIAMINE HCL 100 MG TABLET (FP) PO SCH (22:23)
[2022-04-01 10:02] VITALS: BP 120/60; PULSE 69; RESP 18; TEMP 97.7
[2022-04-01] MEDS: PRENATAL VITAMINS W/ FOLIC ACID TABLET (FP) PO SCH (10:22)
[2022-04-01] MEDS: NICOTINE 14 MG/24 HOURS TOPICAL PATCH TD SCH (10:23)
== END 2022-04-01 10:30 | disposition home or self-care (01) | DRG 774 ==
LOC: YASAS 11:34 → Y6N 13:27
PROVIDERS: ADMIT Allergy & Immunology; ATTEND Family Medicine
PROC: HZ2ZZZZ Detoxification Services for Substance Abuse Treatment (ICD-10-PCS; principal; 2022-03-30)
DX: F10.230 Alcohol dependence with withdrawal, uncomplicated (principal); F14.20 Cocaine dependence, uncomplicated; F12.20 Cannabis dependence, uncomplicated; F17.210 Nicotine dependence, cigarettes, uncomplicated; F25.9 Schizoaffective disorder, unspecified; F31.9 Bipolar disorder, unspecified; F19.282 Other psychoactive substance dependence with psychoactive substance-induced sleep disorder; F41.8 Other specified anxiety disorders; J45.909 Unspecified asthma, uncomplicated; R63.4 Abnormal weight loss; Z68.23 Body mass index [BMI] 23.0-23.9, adult; Z86.2 Personal history of diseases of the blood and blood-forming organs and certain disorders involving the immune mechanism; Z88.0 Allergy status to penicillin; Z91.013 Allergy to seafood
CPT/HCPCS: 36415; 80053; 85027; 86780; C9803-CS; U0003; U0005

== ENCOUNTER 2022-05-23 13:44 | Inpatient (IN) | payer OTHER ==
[2022-05-23 14:20] VITALS: BMI 24.3
[2022-05-23] MEDS ORDERED: chlordiazePOXIDE HCL 25 MG CAPSULE PO PRN (15:04)
[2022-05-23] MEDS ORDERED: DICYCLOMINE HCL 10 MG CAPSULE PO PRN (15:06)
[2022-05-23] MEDS ORDERED: hydrOXYzine PAMOATE 25 MG CAPSULE (FP) PO PRN (15:06)
[2022-05-23] MEDS ORDERED: NICOTINE 10 MG CARTRIDGE (INHALER) IH PRN (15:06)
[2022-05-23] MEDS ORDERED: NICOTINE POLACRILEX 2 MG GUM BUC PRN (15:06)
[2022-05-23] MEDS ORDERED: IBUPROFEN 600 MG TABLET (FP) PO PRN (15:06)
[2022-05-23] MEDS ORDERED: guaiFENesin 600 MG TABLET.ER (FP) PO PRN (15:06)
[2022-05-23] MEDS ORDERED: NALOXONE HCL 0.4 MG/ML VIAL IM PRN (15:06)
[2022-05-23] MEDS ORDERED: MAG HYDROX/AL HYDROX/SIMETH 30 ML UNIT-DOSE CUP PO PRN (15:06)
[2022-05-23] MEDS ORDERED: NALOXONE HCL (KLOXXADO) 8 MG SPRAY NS PRN (15:06)
[2022-05-23] MEDS ORDERED: MAGNESIUM HYDROX 2400MG/30ML ORAL SUSPENSION 30 ML CUP PO PRN (15:06)
[2022-05-23] MEDS ORDERED: BENZOCAINE/MENTHOL (CHLORASEPTIC ) LOZENGE MM PRN (15:06)
[2022-05-23] MEDS ORDERED: LOPERAMIDE HCL 2 MG CAPSULE PO PRN (15:06)
[2022-05-23] MEDS ORDERED: BISMUTH SUBSALICYLATE 524 MG/30 ML PO PRN (15:06)
[2022-05-23] MEDS ORDERED: POLYETHYLENE GLYCOL (HEALTHYLAX) 3350 17 GM PACKET PO PRN (15:06)
[2022-05-23] MEDS ORDERED: BENZONATATE 200 MG CAPSULE PO PRN (15:06)
[2022-05-23] MEDS ORDERED: IBUPROFEN 400 MG TABLET (FP) PO PRN (15:06)
[2022-05-23] MEDS ORDERED: ACETAMINOPHEN 325 MG TABLET (FP) PO PRN (15:06)
[2022-05-23] MEDS ORDERED: ONDANSETRON *ODT* 4 MG TABLET SL PRN (15:06)
[2022-05-23] MEDS ORDERED: METHOCARBAMOL 500 MG TABLET PO PRN (15:06)
[2022-05-23] MEDS: chlordiazePOXIDE HCL 25 MG CAPSULE PO SCH ×2 (17:44→22:45)
[2022-05-23] MEDS: MELATONIN 5 MG TABLETS PO SCH (22:45)
[2022-05-23] MEDS: THIAMINE HCL 100 MG TABLET (FP) PO SCH (22:45)
[2022-05-24] MEDS: chlordiazePOXIDE HCL 25 MG CAPSULE PO SCH ×4 (05:21→22:41)
[2022-05-24] MEDS: PRENATAL VITAMINS W/ FOLIC ACID TABLET (FP) PO SCH (10:30)
[2022-05-24] MEDS: THIAMINE HCL 100 MG TABLET (FP) PO SCH (22:36)
[2022-05-24] MEDS: DIVALPROEX SODIUM 250 MG TABLET E.C. PO SCH (22:36)
[2022-05-24] MEDS: QUEtiapine FUMARATE 50 MG TABLET PO SCH (22:36)
[2022-05-24] MEDS: MELATONIN 5 MG TABLETS PO SCH (22:36)
[2022-05-25] MEDS: chlordiazePOXIDE HCL 25 MG CAPSULE PO SCH ×4 (06:19→22:43)
[2022-05-25] MEDS: DIVALPROEX SODIUM 250 MG TABLET E.C. PO SCH ×2 (10:49→22:42)
[2022-05-25] MEDS: PRENATAL VITAMINS W/ FOLIC ACID TABLET (FP) PO SCH (10:49)
[2022-05-25 11:44] LABS: HEMATOCRIT 32.2 % (32.4-45.2); HEMOGLOBIN 10.8 GM/dL (10.7-15.3); MCHC 33.4 g/dl (32.0-36.0); MEAN CELL VOLUME 83.7 fl (80-96); MEAN PLT VOLUME 8.4 fl (7.5-11.1); PLATELET COUNT 296 10^3/uL (134-434); RBC 3.85 M/mm3 (3.60-5.2); RDW 13.8 % (11.6-15.6); WHITE BLOOD COUNT 4.9 K/mm3 (4.0-10.0)
[2022-05-25 12:04] LABS: BLOOD UREA NITROGEN 20.8 mg/dL (7-18); CALCIUM 8.9 mg/dL (8.5-10.1)
[2022-05-25 12:07] LABS: CREATININE 0.8 mg/dL (0.55-1.3)
[2022-05-25 12:08] LABS: BILIRUBIN,TOTAL 1.1 mg/dL (0.2-1)
[2022-05-25] MEDS: QUEtiapine FUMARATE 50 MG TABLET PO SCH (22:42)
[2022-05-25] MEDS: THIAMINE HCL 100 MG TABLET (FP) PO SCH (22:42)
[2022-05-25] MEDS: MELATONIN 5 MG TABLETS PO SCH ×2 (22:42→22:44)
[2022-05-26] MEDS ORDERED: chlordiazePOXIDE HCL 10 MG CAPSULE PO PRN
[2022-05-26] MEDS: chlordiazePOXIDE HCL 10 MG CAPSULE PO SCH ×4 (05:57→22:40)
[2022-05-26] MEDS: PRENATAL VITAMINS W/ FOLIC ACID TABLET (FP) PO SCH (10:41)
[2022-05-26] MEDS: DIVALPROEX SODIUM 250 MG TABLET E.C. PO SCH ×2 (10:42→22:40)
[2022-05-26] MEDS: THIAMINE HCL 100 MG TABLET (FP) PO SCH (22:40)
[2022-05-26] MEDS: QUEtiapine FUMARATE 50 MG TABLET PO SCH (22:40)
[2022-05-26] MEDS: MELATONIN 5 MG TABLETS PO SCH (22:40)
[2022-05-27] MEDS ORDERED: chlordiazePOXIDE HCL 10 MG CAPSULE PO SCH (05:00)
[2022-05-27 10:03] VITALS: TEMP 97.7
[2022-05-27] MEDS: DIVALPROEX SODIUM 250 MG TABLET E.C. PO SCH (10:43)
[2022-05-27] MEDS: PRENATAL VITAMINS W/ FOLIC ACID TABLET (FP) PO SCH (10:43)
[2022-05-27 13:15] VITALS: BP 105/62; PULSE 82; RESP 20
[2022-05-28] MEDS ORDERED: chlordiazePOXIDE HCL 10 MG CAPSULE PO ONE (05:00)
== END 2022-05-27 15:55 | disposition home or self-care (01) | DRG 774 ==
LOC: YASAS 13:44 → Y3N 15:29
PROVIDERS: ADMIT Allergy & Immunology; ATTEND Nurse Practitioner Family
PROC: HZ2ZZZZ Detoxification Services for Substance Abuse Treatment (ICD-10-PCS; principal; 2022-05-23)
DX: F10.230 Alcohol dependence with withdrawal, uncomplicated (principal); F14.20 Cocaine dependence, uncomplicated; F17.210 Nicotine dependence, cigarettes, uncomplicated; F31.9 Bipolar disorder, unspecified; F19.280 Other psychoactive substance dependence with psychoactive substance-induced anxiety disorder; Z56.0 Unemployment, unspecified; Z59.00 Homelessness unspecified; Z88.0 Allergy status to penicillin; Z91.013 Allergy to seafood
CPT/HCPCS: 36415; 80053; 85027; 86780; 87811; C9803-CS; U0003; U0005

== ENCOUNTER 2023-06-16 10:09 | Inpatient (IN) | payer OTHER ==
[2023-06-16 10:58] VITALS: BMI 23.1
[2023-06-16] MEDS ORDERED: BENZOCAINE/MENTHOL (CHLORASEPTIC ) LOZENGE MM PRN (11:35)
[2023-06-16] MEDS ORDERED: NICOTINE POLACRILEX 2 MG LOZENGE BC PRN (11:35)
[2023-06-16] MEDS ORDERED: LOPERAMIDE HCL 2 MG CAPSULE PO PRN (11:35)
[2023-06-16] MEDS ORDERED: guaiFENesin 600 MG TABLET.ER (FP) PO PRN (11:35)
[2023-06-16] MEDS ORDERED: POLYETHYLENE GLYCOL (HEALTHYLAX) 3350 17 GM PACKET PO PRN (11:35)
[2023-06-16] MEDS ORDERED: BENZONATATE 200 MG CAPSULE PO PRN (11:35)
[2023-06-16] MEDS ORDERED: MAGNESIUM HYDROX 2400MG/30ML ORAL SUSPENSION 30 ML CUP PO PRN (11:35)
[2023-06-16] MEDS ORDERED: IBUPROFEN 400 MG TABLET (FP) PO PRN (11:35)
[2023-06-16] MEDS ORDERED: TUBERCULIN PPD 5 TU/0.1ML VIAL ID ONE (14:50)
[2023-06-16] MEDS: DIVALPROEX SODIUM 250 MG TABLET E.C. PO SCH (15:02)
[2023-06-16] MEDS: hydrOXYzine PAMOATE 25 MG CAPSULE (FP) PO PRN (15:03)
[2023-06-16] MEDS: ASPIRIN COATED 81 MG TABLET.EC PO SCH (18:27)
[2023-06-16] MEDS: THIAMINE 100 MG TABLET PO SCH (21:28)
[2023-06-16] MEDS: QUEtiapine FUMARATE 100 MG TABLET (FP) PO SCH (21:28)
[2023-06-16] MEDS ORDERED: MELATONIN 5 MG TABLETS PO SCH (22:00)
[2023-06-17] MEDS: QUEtiapine FUMARATE 50 MG TABLET PO SCH (10:40)
[2023-06-17] MEDS: PRENATAL VITAMINS W/ FOLIC ACID TABLET (FP) PO SCH (10:40)
[2023-06-17 12:17] LABS: EPI CELLS >36 /uL (0-25.1); HYALINE CASTS 4 /uL (0-3.1); URINE APPEARANCE CLOUDY; URINE BACTERIA 721 /uL (0-1359); URINE BILIRUBIN NEGATIVE (NEGATIVE); URINE COLOR DK YELLOW; URINE GLUCOSE (UA) NEGATIVE (NEGATIVE); URINE KETONE NEGATIVE (NEGATIVE); URINE LEUK ESTERASE TRACE (NEGATIVE); URINE NITRITE NEGATIVE (NEGATIVE); URINE PROTEIN TRACE (NEGATIVE); URINE RBC 21 /uL (0-23.9); URINE WBC 41 /uL (0-25.8)
[2023-06-17 12:17] LABS: HEMATOCRIT 39.2 % (32.4-45.2); MCH 27.6 pg (25.7-33.7); MCHC 33.1 g/dl (32.0-36.0); MEAN CELL VOLUME 83.3 fl (80-96); MEAN PLT VOLUME 8.8 fl (7.5-11.1); PLATELET COUNT 306 10^3/uL (134-434); RDW 13.3 % (11.6-15.6); WHITE BLOOD COUNT 3.8 K/mm3 (4.0-10.0)
[2023-06-17 12:39] LABS: POTASSIUM 3.8 mmol/L (3.5-5.1)
[2023-06-17 13:06] LABS: ALBUMIN 3.3 g/dl (3.4-5.0); BLOOD UREA NITROGEN 14.6 mg/dL (7-18); CALCIUM 9.6 mg/dL (8.5-10.1)
[2023-06-17 13:09] LABS: CREATININE 0.9 mg/dL (0.55-1.3)
[2023-06-17 13:11] LABS: BILIRUBIN,TOTAL 0.2 mg/dL (0.2-1); TOT PROT 6.8 g/dl (6.4-8.2)
[2023-06-17 13:46] LABS: SYPHILIS W/ RPR CONF NON-REACTIVE (NONREACTIVE)
[2023-06-18] MEDS: ACETAMINOPHEN 325 MG TABLET (FP) PO PRN (06:37)
[2023-06-20] MEDS: IBUPROFEN 600 MG TABLET (FP) PO PRN (14:13)
[2023-06-23 06:02] VITALS: RESP 17
[2023-06-23] MEDS: MAG HYDROX/AL HYDROX/SIMETH 30 ML UNIT-DOSE CUP PO PRN (17:50)
[2023-06-24 07:02] VITALS: BP 102/64; PULSE 78; TEMP 97.7
== END 2023-06-24 09:30 | disposition home or self-care (01) | DRG 772 ==
LOC: YASAS 10:09 → EDBD 12:05 → Y5N 12:05
PROVIDERS: ADMIT Allergy & Immunology; ATTEND Psychiatry & Neurology Pain Medicine
PROC: HZ42ZZZ Group Counseling for Substance Abuse Treatment, Cognitive-Behavioral (ICD-10-PCS; principal; 2023-06-16)
DX: F10.20 Alcohol dependence, uncomplicated (principal); F14.20 Cocaine dependence, uncomplicated; F17.210 Nicotine dependence, cigarettes, uncomplicated; F31.9 Bipolar disorder, unspecified; F19.282 Other psychoactive substance dependence with psychoactive substance-induced sleep disorder; F19.280 Other psychoactive substance dependence with psychoactive substance-induced anxiety disorder; M71.9 Bursopathy, unspecified; Z86.2 Personal history of diseases of the blood and blood-forming organs and certain disorders involving the immune mechanism; Z87.09 Personal history of other diseases of the respiratory system; Z88.0 Allergy status to penicillin
CPT/HCPCS: 36415; 80053; 80164; 81003; 85027; 86780; 86803; 87811; 93005; 93010

== ENCOUNTER 2024-05-18 11:44 | Inpatient (IN) | payer OTHER ==
[2024-05-18] MEDS ORDERED: LOPERAMIDE HCL 2 MG CAPSULE PO PRN (12:25)
[2024-05-18] MEDS ORDERED: NICOTINE POLACRILEX 4 MG GUM BUC PRN (12:25)
[2024-05-18] MEDS ORDERED: NALOXONE (NARCAN) HCL 4 MG/0.1 ML SPRAY NS PRN (12:25)
[2024-05-18] MEDS ORDERED: hydrOXYzine PAMOATE 25 MG CAPSULE (FP) PO PRN (12:25)
[2024-05-18] MEDS ORDERED: chlordiazePOXIDE HCL 25 MG CAPSULE PO PRN (12:25)
[2024-05-18] MEDS ORDERED: MAGNESIUM HYDROX 2400MG/30ML ORAL SUSPENSION 30 ML CUP PO PRN (12:25)
[2024-05-18] MEDS ORDERED: guaiFENesin 600 MG TABLET.ER (FP) PO PRN (12:25)
[2024-05-18] MEDS ORDERED: BISMUTH SUBSALICYLATE 262 MG/15 ML BTL PO PRN (12:25)
[2024-05-18] MEDS ORDERED: IBUPROFEN 400 MG TABLET (FP) PO PRN (12:25)
[2024-05-18] MEDS ORDERED: BENZOCAINE/MENTHOL (CHLORASEPTIC ) LOZENGE MM PRN (12:25)
[2024-05-18] MEDS ORDERED: BENZONATATE 200 MG CAPSULE PO PRN (12:25)
[2024-05-18] MEDS ORDERED: MAG HYDROX/AL HYDROX/SIMETH 30 ML UNIT-DOSE CUP PO PRN (12:25)
[2024-05-18] MEDS ORDERED: ONDANSETRON *ODT* 4 MG TABLET SL PRN (12:25)
[2024-05-18] MEDS ORDERED: POLYETHYLENE GLYCOL (HEALTHYLAX) 3350 17 GM PACKET PO PRN (12:25)
[2024-05-18] MEDS ORDERED: DICYCLOMINE HCL 10 MG CAPSULE PO PRN (12:25)
[2024-05-18 12:28] VITALS: BMI 24.3
[2024-05-18] MEDS: PRENATAL VITAMINS W/ FOLIC ACID TABLET (FP) PO SCH (13:03)
[2024-05-18] MEDS: FLUTICASONE PROP 0.05% 16 GM NASAL SPRAY NS SCH (13:27)
[2024-05-18] MEDS ORDERED: chlordiazePOXIDE HCL 25 MG CAPSULE PO SCH (17:00)
[2024-05-18] MEDS: chlordiazePOXIDE HCL 25 MG CAPSULE PO SCH (17:46)
[2024-05-18] MEDS: THIAMINE 100 MG TABLET PO SCH (23:00)
[2024-05-18] MEDS: METHOCARBAMOL 500 MG TABLET PO PRN (23:00)
[2024-05-18] MEDS: MELATONIN 5 MG TABLETS PO SCH (23:00)
[2024-05-19] MEDS: IBUPROFEN 600 MG TABLET (FP) PO PRN (06:11)
[2024-05-19 11:01] LABS: HEMATOCRIT 35.2 % (34.1-44.9); HEMOGLOBIN 11.2 g/dL (11.2-15.7); MCHC 31.8 g/dl (32.2-35.5); MEAN CELL VOLUME 86.1 fl (79.4-94.8); PLATELET COUNT # 296 x10^3/uL (182-369); RDW 13.7 % (12.3-16.6)
[2024-05-19 11:05] LABS: POTASSIUM 3.9 mmol/L (3.5-5.1)
[2024-05-19 11:13] LABS: CALCIUM 9.6 mg/dL (8.5-10.1)
[2024-05-19 11:14] LABS: ALBUMIN 3.7 g/dl (3.4-5.0); BLOOD UREA NITROGEN 18.9 mg/dL (7-18)
[2024-05-19 11:19] LABS: TOT PROT 6.8 g/dl (6.4-8.2)
[2024-05-19 11:22] LABS: BILIRUBIN,TOTAL 0.9 mg/dL (0.2-1)
[2024-05-19] MEDS: DIVALPROEX SODIUM 250 MG TABLET E.C. PO SCH (13:37)
[2024-05-19] MEDS: QUEtiapine FUMARATE 100 MG TABLET (FP) PO SCH (22:19)
[2024-05-20] MEDS: chlordiazePOXIDE HCL 25 MG CAPSULE PO SCH (05:57)
[2024-05-21] MEDS ORDERED: chlordiazePOXIDE HCL 10 MG CAPSULE PO PRN
[2024-05-21] MEDS: chlordiazePOXIDE HCL 10 MG CAPSULE PO SCH (05:50)
[2024-05-21] MEDS: ACETAMINOPHEN 325 MG TABLET (FP) PO PRN (14:01)
[2024-05-22] MEDS: chlordiazePOXIDE HCL 10 MG CAPSULE PO SCH (06:01)
[2024-05-22] MEDS ORDERED: NALTREXONE HCL 50 MG TABLET PO ONE (15:17)
[2024-05-22] MEDS: NALTREXONE HCL 50 MG TABLET PO ONE (17:39)
[2024-05-23] MEDS: chlordiazePOXIDE HCL 10 MG CAPSULE PO ONE (05:58)
[2024-05-23] MEDS: NALTREXONE HCL 50 MG TABLET PO SCH (09:18)
[2024-05-23 10:11] VITALS: BP 140/66; PULSE 87; RESP 18; TEMP 97.6
== END 2024-05-23 09:19 | disposition other institution (70) | DRG 774 ==
LOC: YASAS 11:44 → Y6N 12:46
PROVIDERS: ADMIT Allergy & Immunology; ATTEND Allergy & Immunology
PROC: HZ2ZZZZ Detoxification Services for Substance Abuse Treatment (ICD-10-PCS; principal; 2024-05-18)
DX: F10.230 Alcohol dependence with withdrawal, uncomplicated (principal); F14.20 Cocaine dependence, uncomplicated; F12.20 Cannabis dependence, uncomplicated; F17.210 Nicotine dependence, cigarettes, uncomplicated; F25.0 Schizoaffective disorder, bipolar type; F19.282 Other psychoactive substance dependence with psychoactive substance-induced sleep disorder; F19.280 Other psychoactive substance dependence with psychoactive substance-induced anxiety disorder; F19.24 Other psychoactive substance dependence with psychoactive substance-induced mood disorder; K08.109 Complete loss of teeth, unspecified cause, unspecified class; M17.0 Bilateral primary osteoarthritis of knee
CPT/HCPCS: 36415; 80053; 80305; 80307; 85027; 86780; 93005; 93010

== ENCOUNTER 2024-07-29 09:17 | Inpatient (IN) | payer OTHER ==
[2024-07-29 09:45] VITALS: BMI 24.9
[2024-07-29] MEDS ORDERED: NALOXONE (NARCAN) HCL 4 MG/0.1 ML SPRAY NS PRN (10:12)
[2024-07-29] MEDS ORDERED: guaiFENesin 600 MG TABLET.ER (FP) PO PRN (10:12)
[2024-07-29] MEDS ORDERED: LOPERAMIDE HCL 2 MG CAPSULE PO PRN (10:12)
[2024-07-29] MEDS ORDERED: BENZONATATE 200 MG CAPSULE PO PRN (10:12)
[2024-07-29] MEDS ORDERED: POLYETHYLENE GLYCOL (HEALTHYLAX) 3350 17 GM PACKET PO PRN (10:12)
[2024-07-29] MEDS ORDERED: IBUPROFEN 600 MG TABLET (FP) PO PRN (10:12)
[2024-07-29] MEDS ORDERED: IBUPROFEN 400 MG TABLET (FP) PO PRN (10:12)
[2024-07-29] MEDS ORDERED: ACETAMINOPHEN 325 MG TABLET (FP) PO PRN (10:12)
[2024-07-29] MEDS ORDERED: BENZOCAINE/MENTHOL (CHLORASEPTIC ) LOZENGE MM PRN (10:12)
[2024-07-29] MEDS ORDERED: NICOTINE POLACRILEX 2 MG GUM BUC PRN (10:12)
[2024-07-29] MEDS ORDERED: MAG HYDROX/AL HYDROX/SIMETH 30 ML UNIT-DOSE CUP PO PRN (10:12)
[2024-07-29] MEDS ORDERED: MAGNESIUM HYDROX 2400MG/30ML ORAL SUSPENSION 30 ML CUP PO PRN (10:12)
[2024-07-29] MEDS ORDERED: NICOTINE POLACRILEX 2 MG LOZENGE BC PRN (10:12)
[2024-07-29 11:35] VITALS: RESP 18
[2024-07-29] MEDS ORDERED: TUBERCULIN PPD 5 TU/0.1ML VIAL ID ONE ×2 (17:06→17:12)
[2024-07-29] MEDS: MELATONIN 5 MG TABLETS PO SCH (21:18)
[2024-07-29] MEDS: THIAMINE 100 MG TABLET PO SCH (21:18)
[2024-07-30 09:00] LABS: HEMATOCRIT 42.8 % (34.1-44.9); HEMOGLOBIN 13.5 g/dL (11.2-15.7); MCHC 31.5 g/dl (32.2-35.5); MEAN CELL VOLUME 84.6 fl (79.4-94.8); MEAN PLT VOLUME 9.8 fl (9.4-12.3); PLATELET COUNT 532 x10^3/uL (182-369); RDW 13.2 % (12.3-16.6)
[2024-07-30 09:04] LABS: URINE APPEARANCE CLOUDY; URINE BILIRUBIN NEGATIVE (NEGATIVE); URINE COLOR YELLOW; URINE GLUCOSE (UA) NEGATIVE (NEGATIVE); URINE KETONE NEGATIVE (NEGATIVE); URINE LEUK ESTERASE TRACE (NEGATIVE); URINE NITRITE NEGATIVE (NEGATIVE); URINE PROTEIN NEGATIVE (NEGATIVE); URINE UROBILINOGEN 0.2 mg/dL (0.2-1.0)
[2024-07-30 09:07] LABS: EPI CELLS 224.1 /uL (0-25.1); HYALINE CASTS 0.62 /uL (0-3.1); URINE RBC 6.4 /uL (0-23.9); URINE WBC 60.5 /uL (0-25.8)
[2024-07-30 09:08] LABS: URINE BACTERIA 1635.8 /uL (0-1359)
[2024-07-30] MEDS ORDERED: hydrOXYzine PAMOATE 25 MG CAPSULE (FP) PO PRN (09:49)
[2024-07-30] MEDS ORDERED: TUBERCULIN PPD 5 TU/0.1ML VIAL ID ONE ×2 (09:54→10:01)
[2024-07-30] MEDS: PRENATAL VITAMINS W/ FOLIC ACID TABLET (FP) PO SCH (09:56)
[2024-07-30] MEDS: QUEtiapine FUMARATE 25 MG TABLET PO SCH (10:31)
[2024-07-30] MEDS: DIVALPROEX SODIUM 250 MG TABLET E.C. PO SCH (13:22)
[2024-07-30 13:50] LABS: CHLORIDE 106 mmol/L (98-107); POTASSIUM 4.7 mmol/L (3.5-5.1); SODIUM 141 mmol/L (136-145)
[2024-07-30 13:54] LABS: ALBUMIN 3.3 g/dl (3.4-5.0); ANION GAP 6 mmol/L (4-13); BLOOD UREA NITROGEN 15.5 mg/dL (7-18); CALCIUM 10.6 mg/dL (8.5-10.1); CO2 30 mmol/L (21-32); GLUCOSE,RANDOM 66 mg/dL (74-106)
[2024-07-30 13:56] LABS: CREATININE 0.9 mg/dL (0.55-1.3); SGOT/AST 18 U/L (15-37); SGPT/ALT 31 U/L (13-61)
[2024-07-30 13:58] LABS: TOT PROT 7.1 g/dl (6.4-8.2)
[2024-07-30 13:59] LABS: ALK PHOS 109 U/L (45-117); BILIRUBIN,TOTAL 0.2 mg/dL (0.2-1)
[2024-07-30] MEDS: QUEtiapine FUMARATE 100 MG TABLET (FP) PO SCH (21:35)
[2024-08-01 07:12] VITALS: BP 131/80; PULSE 76; TEMP 97.6
[2024-08-01 13:39] LABS: HIV INTERPRETATION NEGATIVE (NEGATIVE)
== END 2024-08-01 13:30 | disposition left against medical advice (07) | DRG 770 ==
LOC: YASAS 09:17 → Y6N 10:47 → UNDOADMIN 10:47 → Y5N 10:54
PROVIDERS: ADMIT Neuromusculoskeletal Medicine & OMM; ATTEND Psychiatry & Neurology Pain Medicine
PROC: HZ42ZZZ Group Counseling for Substance Abuse Treatment, Cognitive-Behavioral (ICD-10-PCS; principal; 2024-07-29)
DX: F10.20 Alcohol dependence, uncomplicated (principal); F14.20 Cocaine dependence, uncomplicated; F12.20 Cannabis dependence, uncomplicated; F17.210 Nicotine dependence, cigarettes, uncomplicated; F19.282 Other psychoactive substance dependence with psychoactive substance-induced sleep disorder; F19.280 Other psychoactive substance dependence with psychoactive substance-induced anxiety disorder; F19.24 Other psychoactive substance dependence with psychoactive substance-induced mood disorder; F31.9 Bipolar disorder, unspecified; F41.9 Anxiety disorder, unspecified; Z62.810 Personal history of physical and sexual abuse in childhood; Z88.0 Allergy status to penicillin; Z59.00 Homelessness unspecified
CPT/HCPCS: 36415; 80053; 80164; 80305; 80307; 81003; 85027; 86780; 87389; 87811